=== PATIENT | female | born 1950 | race Caucasian/White ===

== ENCOUNTER → 2019-07-31 12:24 | Outpatient (BNVA) | payer MEDICARE, SELFPAY | PROVIDERS: Family Provider Physician Assistant Medical; PCP Physician Assistant Medical; Visit Provider Specialist | DX: M25.561 Pain in right knee (principal); M77.8 Other enthesopathies, not elsewhere classified | CPT/HCPCS: 73560; 73565; 81003; 87641 ==

== ENCOUNTER 2019-08-12 10:50 | Inpatient (IN) | payer MEDICARE, SELFPAY ==
[2019-08-01 14:25] VITALS: BMI 35.4
--- NOTE | 2019-08-01 14:30 | ECG_ITS ---
Measurements Intervals Brilliant Rate: 75 P: -9 NM: 133 QRS: 0 QRSD: 85 T: 0 QT: 386 QTc: 434 SINUS RHYTHM No previous ECG available for comparison Electronically Signed On 08-01-2019 15:56:10 CLINICAL ACCOUNT SPECIALIST by Vince Miller M.D. [email or web address]
--- NOTE | 2019-08-01 15:28 | ANES.PREANES ---
Pre-Anesthetic Assessment Pre-Anesthetic Assessment: Height/Weight: Height 1.6 m Weight 90.718 kg Preop Diagnosis: Knee pain Proposed Procedure: Operation Date: 08/12/19 11:45 Proposed Procedures p Total Knee Arthroplasty 23474 M17.11(Right) - Corrie Garcia MD Familial anesthetic complications: No trouble Social: Social History: No alcohol and No tobacco Exam: Pre-Anes Outpt Exam: alert, oriented x 3, clear to auscultation bilaterally and regular rate & rhythm Airway: Cervical ROM: WNL MP: 3 Additional comments: edentulous Pulmonary: Pulmonary: Cough (chronic (may be due to lisinopril)) and Sleep apnea (BiPaP (complicated) - quit breathing 104 times an hour; does not wear machine) CV/HEM: CV/HEM: HTN : : None reported Hepatic: Hepatic: None reported GI: GI: GERD and Hiatus hernia Comments: severe Metabolic: Metabolic: Morbid obesity and Thyroid Musc/skel: Musc/skel: None reported Neuropsych: Neuropsych: None reported Anesthetic Plan: ASA status: III Anesthesia: General and Regional (specify below) Other: adductor canal Risk of > 500 ml blood loss (7ml/kg in children): Yes, adequate IV access and fluids planned PFSH Anesthesia PFSH: Social History (Updated 07/31/19 @ 15:20 by Judy Whipple LPN) Smoking and tobacco status: never smoked Alcohol intake: never Data Anesthesia Cardiac Studies: No Data to Display
[2019-08-01 16:19] LABS: Basophils # 0.1 10^3/uL (0.0-0.1); Basophils % 1.1 %; Eosinophils # 0.3 10^3/uL (0.0-0.8); Eosinophils % 3.7 %; Hemoglobin 13.5 g/dL (11.5-15.3); Lymphocytes # 2.9 10^3/uL (0.8-4.8); Lymphocytes % 35.6 %; Mean Corpuscular HGB Conc 32.9 g/dL (30.0-36.0); Mean Corpuscular Hemoglobin 30.5 pg (28.0-34.0); Mean Corpuscular Volume 92.6 fL (81-99); Mean Platelet Volume 11.4 fL (7.4-10.4); Monocytes # 0.8 10^3/uL (0.2-0.9); Monocytes % 9.7 %; Neutrophils % 49.4 %; Nucleated Red Blood Cells % 0 %; Platelet Count 312 10^3/cmm (130-400); Red Blood Count 4.43 10^6/uL (4.1-5.3); Red Cell Distribution Width 13.2 % (12.1-15.1); White Blood Count 8.1 10^3/uL (4.0-10.0)
[2019-08-01 16:33] LABS: INR 0.97 (0.8-1.2)
[2019-08-01 16:34] LABS: Partial Thromboplastin Time 29.6 SECONDS (23.9-36.7)
[2019-08-12] VITALS (21 sets, daily range): BP systolic 100–151; BP diastolic 57–98; PULSE 69–99; RESP 14–20; TEMP 36.6–37.7; O2SAT 90–97
[2019-08-12] MEDS: sodium chloride 0.9% 1,000 ML 30 ML IV (05:49)
[2019-08-12] MEDS: CELEcoxib 200 mg Capsule 400 MG PO (05:55)
[2019-08-12 06:41] LABS: Blood Urea Nitrogen 14 mg/dL (8-23); Calcium 10.1 mg/dL (8.5-10.5); Carbon Dioxide 26 mmol/L (22-29); Chloride 102 mmol/L (98-107); Glomerular Filtration Rate 82.7 mL/min (90-130); Glucose 108 mg/dL (65-115); Osmolality Calculated 289 mOsm/kg (285-295); Sodium 141 mmol/L (136-145)
[2019-08-12] MEDS: midazolam 1 mg/mL INJ 5 ML 5 MG IVP (06:42)
[2019-08-12] MEDS: fentaNYL 50 mcg/mL INJ 2mL 100 MCG IVP (06:43)
--- NOTE | 2019-08-12 06:53 | ANES.PROC ---
Anesthesia Procedures Procedure/Date: 08/12/19 Right adductor canal block Procedure Narrative: R&B's of right adductor canal block for postop pain relief following right TKA disc'd. Verbal and written consent obtained. Versed 2+1mg, Fentanyl 50ug. US used to identify right adductor canal space, MADELIN. 30cc of mixture of Ropvicaine 0.5% + Lido 2% with epi in 3:1 ratio given in 5cc increments without problems/complications. Nerve Block ^: Nerve Block 1: Main Anesthesia: general anesthesia Time Out Performed: Yes Consent: requested by attending/covering physician, from patient, risks and benefits reviewed and patient agrees to proceed Nerve block location: adductor canal Anesthetic Used: lidocaine 2% and ropivicaine 0.5% Amount of anesthesia used (mL): 30 Patient Tolerated Procedure: well Complications: none
--- NOTE | 2019-08-12 06:59 | PM.HPUD ---
H&P update H&P Update: DATE OF SURGERY/PROCEDURE: 08/12/19 DATE H&P PERFORMED: 08/01/18 H&P UPDATE INFORMATION: No changes to prior documentation and H&P is in [facility] EMR on date indicated PREOP DIAGNOSIS: Severe degenerative osteoarthritis right knee PRIMARY INDICATION FOR PROCEDURE: Right knee DJD PLANNED PROCEDURE: Operation Date: 08/12/19 07:00 Proposed Procedures p Total Knee Arthroplasty 19327 M17.11(Right) - Corrie Garcia MD Full H&P Medications/Allergies: Current Medications: Current Medications Generic Name Dose Route Start Last Admin Trade Name Freq PRN Reason Stop Dose Admin Sodium Chloride 1,000 mls @ 30 ml s/hr 08/12/19 05:30 08/12/19 05:49 Sodium Chloride 0.9% IV 08/13/19 05:29 30 mls/hr .Q24H TALON Administration Perinent History: Social History: Social History Smoking and tobacco status: never smoked Alcohol intake: never
[2019-08-12] MEDS: vancomycin 1,000 MG SDV 1000 MG XX (07:54)
[2019-08-12] MEDS: fentaNYL 50 mcg/mL INJ 2mL IVP ×2 (09:45→09:50)
[2019-08-12] MEDS: morphine 4 mg/mL SDV 1 mL 2 MG IVP ×2 (10:00→10:10)
--- NOTE | 2019-08-12 10:00 | XR_ITS ---
WS: [id number] Right knee, 3 views, 08/12/2019 Clinical Data: Status post total knee arthroplasty Comparison: Right knee, 07/31/2019 Findings: A total knee arthroplasty is in good position. The components are in good position. There are air-flu id levels in the knee from the recent surgery. Anterior surgical anahi are seen. XR/XR knee RT 3V* [id number] Impression: Right knee arthroplasty.
--- NOTE | 2019-08-12 10:03 | P.OP_ITS ---
Operative Report Date of procedure: August 12, 2019 Pre-op Diagnosis: Severe degenerative osteoarthritis right knee Post-op diagnosis: same Procedure Done: Right total knee arthroplasty utilizing the following components: The [place] triathlon Tritanium posterior stabilized right femoral component size 3 with a triathlon Tritanium tibial component size 3 and a size 3 x 13 mm posterior stabilized tibial insert. Patella was triathlon Tritanium asymmetric patella size 29 x 9 mm. All were press fitted. Specimens removed/disposition: Bone, disposed of Pathology: none sent Surgeon: Corrie Garcia Restaurant District Manager: [facility] OR technicians Anesthesia: General (Intubated with preoperative adductor canal block placed in preop holding area) Estimated blood loss (mL): 10 Tourniquet time (min): 103 IV fluids (mL): 1,200 Urine output (mL): 200 Complications: None Findings: Severe degenerative osteoarthritis Condition: stable Disposition: PACU (Then observation for postoperative rehabilitation) Brief History: This 68-year-old woman presented with complaints of severe pain in the right knee. She had difficulties with her activities of daily living. She was unresponsive to other conservative measures. After discussion, the patient wished to proceed with operative intervention. Preoperatively, risks and complications were discussed with her. Consents were signed and questions were answered. Procedure: The patient was brought to the operating theater, and after undergoing adequate general intubated anesthesia with supplemental regional block, the right lower extremity was prepped with Dura-Prep and draped in usual fashion following placement of a tourniquet high on the leg. The leg was then draped free. Following prepping and draping, the leg was exsanguinated, and the tourniquet was elevated to 250 mmHg for a total tourniquet time of 103 minutes. Prior to elevation of the tourniquet, but following exposure of the site of surgery, a surgical pause was performed. At the time of the surgical pause, we confirmed the site and side of surgery. Additionally, we confirmed the appropriate and timely administration of preoperative antibiotics, Ancef 2 g and transexemic acid 1 g. The availability of equipment was confirmed, and the patient's identity was verbalized as well. Following the surgical pause, an incision was made centering over the patella continuing proximally and distally as necessary to allow access to the knee joint. Dissection continued through skin and soft tissues using a scalpel. Hemostasis was obtained using electrocautery. The skin incision was followed by a median parapatellar arthrotomy. The leg was extended and the patella was everted. Following this, the leg was returned to flexed position. The distal femur was exposed and a drill hole was made in this for placement of the distal femoral jig. The distal femoral jig was set at 5? of valgus. The distal femoral cutting block was then placed in appropriate position, and an monalisa wing was used to confirm an appropriate amount of distal femur would be resected. The distal femoral resection was accomplished with 8 mm of bone being resected distally. After the distal femoral resection had been accomplished, the femur was measured and it measured a size 3. Medial lateral dimension also measured a size 3. A size 3 femoral cutting block was placed in position, and we were then able to accomplish the anterior, posterior and chamfer cuts. This jig was then removed and the notch guide was placed in position. With the notch guide in appropriate position, the notch was excised including resection of the anterior and posterior cruciate ligaments. This notch was to allow for the posterior stabilized femoral component. At this point, the femur was prepared and attention was directed to the proximal tibia. The posterior knee retractor was placed along with medial and lateral retractors. Further resection of the menisci was accomplished as we had better visualization. A complete meniscectomy was performed both medially and laterally with care being taken to protect the popliteus. Retractors were then placed so that the proximal tibia was well visualized. A drill hole was then made in the tibia for placement of the intramedullary guide. This guide was placed so that approximately 2 mm of bone would be resected from the deficient medial tibial plateau. The intramedullary guide was utilized supplemented with an extramedullary guide to assure appropriate alignment for the proximal tibial resection. The proximal tibial jig was then evaluated, pinned in position, and the proximal tibial resection was accomplished without difficulty. The jig was removed and the proximal tibia was measured. It measured a size 3. We then performed a trial reduction with an 11 mm insert into the size 5 tray. The femoral component was placed in position for the trial reduction, and the knee was placed through range of motion. The knee was felt to be slightly loose laterally compared to medially. Therefore, the medial release was accomplished and we were able to increase to an 13 mm insert. There was excellent stability with excellent varus-valgus alignment with appropriate patellar tracking. This was felt to be the appropriate size insert. There was full extension and flexion without lift off and the rotation of the tibia was marked. Alignment was checked from the hip to the ankle, and this was noted to be appropriate as well. Attention was then directed to the patella. The patella was measured with a caliper. We resected sufficient patella to leave approximately 14 mm of patella remaining. Measurements of the patella then indicated that a size asymmetric 29 mm x 9 mm was the appropriate patellar size. We then placed the jig to drill for the 3 pegs of the press-fit patella, and these drill holes were made without incident. A trial patella was then placed, and the knee was placed through range of motion. The patella was noted to track nicely without evidence of subluxation. The femur was prepared for a press-fit femur by drilling 2 holes for the femoral pegs. All trial components were subsequently removed. The tibial tray was then pinned into position, and we broached the tibia for the stem of the tibial component. Subsequently, 4 drill holes were made for placement of the press-fit tibia. This was accomplished without difficulty. Care was taken to assure appropriate rotation of the tibia as well as appropriate position on the proximal tibia. The tibial tray was completely seated on the proximal tibia. Following broaching, the tibial guide was removed, and all surfaces were copiously irrigated. The surfaces were then dried and a bone plug was placed into the distal femur. Exparel was also injected at this point. The Tritanium tibia was impacted into position. The beaded femur was then impacted into position in a cementless fashion. The tibial insert was placed. The patella was pressed into position with a patellar clamp. The knee was irrigated with 20 mL of Betadine and 500 mL of normal saline, and this was allowed to remain in the knee for 3-4 minutes. The knee was then copiously irrigated and suctioned dry. Attention was then directed to closure. Closure was accomplished with 0 Vicryl in the fascial tissues, 2-0 Monocryl was used in the subcutaneous tissues, and the skin was closed with skin anahi followed by Exofin. A sterile dressing was then placed consisting of Telfa, 4 x 4's, ABDs, sterile soft roll, and an Avel wrap. The patient was returned the Recovery Room in a satisfactory condition. X-rays were obtained there. The patient will be discharged to the floor for postoperative rehabilitation and pain management. She'll be under observation status with plans to discharge home with home health.
[2019-08-12] MEDS: ipratropium 0.5 mg/2.5 mL Neb INHALATION (10:15)
[2019-08-12] MEDS: ondansetron 2 mg/ML SDV 2 mL 4 MG IVP ×2 (10:45→16:04)
[2019-08-12 12:02] LABS: Glucose Point of Care 136 mg/dL (70-110)
[2019-08-12] MEDS: sodium chloride 0.9% 1,000 ML 80 ML IV (12:55)
[2019-08-12] MEDS: oxyCODONE-APAP 5-325 mg Tablet 1 TAB PO ×2 (14:14→22:38)
[2019-08-12] MEDS: chlorhexidine gluconate 0.12% Btl 473 mL 30 ML MUCOUS MEM ×2 (18:50→22:37)
[2019-08-12] MEDS: acetaminophen 500 mg Tablet 1000 MG PO (18:50)
[2019-08-12] MEDS: sennosides-docusate Tablet 2 TAB PO (18:51)
[2019-08-12] MEDS: CELEcoxib 200 mg Capsule PO (18:51)
[2019-08-12] MEDS: iron polysaccharide complex 150 mg Capsule PO (18:51)
[2019-08-12] MEDS: isosorbide dinitrate 20 mg Tablet 30 MG PO (18:51)
[2019-08-12] MEDS: calcium carbonate 500 mg Chew Tablet 1000 MG PO (18:51)
[2019-08-13] VITALS (13 sets, daily range): BP systolic 103–129; BP diastolic 58–76; PULSE 72–93; RESP 16–20; TEMP 36.7–37.1; O2SAT 92–98
[2019-08-13] MEDS: acetaminophen 500 mg Tablet 1000 MG PO ×2 (02:10→07:27)
[2019-08-13] MEDS: sodium chloride 0.9% 1,000 ML 80 ML IV ×2 (02:13→12:12)
[2019-08-13] MEDS: TRAMadol 50 mg Tablet PO ×3 (03:19→16:15)
[2019-08-13 05:38] LABS: Basophils % 0.1 %; Hematocrit 34.7 % (37.0-47.0); Hemoglobin 10.9 g/dL (11.5-15.3); Lymphocytes # 1.5 10^3/uL (0.8-4.8); Mean Corpuscular HGB Conc 31.4 g/dL (30.0-36.0); Mean Corpuscular Hemoglobin 31.4 pg (28.0-34.0); Mean Platelet Volume 10.3 fL (7.4-10.4); Monocytes # 1.4 10^3/uL (0.2-0.9); Monocytes % 11.9 %; Neutrophils # 8.5 10^3/uL (1.8-7.7); Neutrophils % 74.6 %; Nucleated Red Blood Cells % 0 %; Platelet Count 212 10^3/cmm (130-400); Red Blood Count 3.47 10^6/uL (4.1-5.3); Red Cell Distribution Width 13.1 % (12.1-15.1); White Blood Count 11.4 10^3/uL (4.0-10.0)
[2019-08-13] MEDS: CELEcoxib 200 mg Capsule PO ×2 (05:59→17:23)
[2019-08-13] MEDS: isosorbide dinitrate 20 mg Tablet 30 MG PO ×2 (07:26→22:00)
[2019-08-13] MEDS: oxyCODONE-APAP 5-325 mg Tablet 1 TAB PO ×2 (07:27→21:33)
[2019-08-13] MEDS: calcium carbonate 500 mg Chew Tablet 1000 MG PO ×2 (07:27→17:24)
[2019-08-13] MEDS: multivitamin therapeutic Tablet 1 TAB PO (07:28)
[2019-08-13] MEDS: iron polysaccharide complex 150 mg Capsule PO ×2 (07:28→21:33)
[2019-08-13] MEDS: levothyroxine 50 mcg Tablet PO (07:28)
[2019-08-13] MEDS: aspirin 325 mg EC Tablet PO (07:28)
[2019-08-13] MEDS: cholecalciferol (vitamin D3) 1,000 unit Tablet 1000 UNIT PO (07:28)
[2019-08-13] MEDS: famotidine 20 mg Tablet PO (07:28)
[2019-08-13] MEDS: amlodipine 10 mg Tablet PO (07:29)
[2019-08-13] MEDS: citalopram 20 mg Tablet PO (07:29)
[2019-08-13] MEDS: sennosides-docusate Tablet 2 TAB PO ×2 (07:29→21:33)
[2019-08-13] MEDS: pantoprazole DR 40 mg Tablet PO (07:29)
[2019-08-13] MEDS: oxybutynin 5 mg Tablet PO (07:29)
[2019-08-13] MEDS: chlorhexidine gluconate 0.12% Btl 473 mL 30 ML MUCOUS MEM ×4 (07:30→21:38)
[2019-08-13] MEDS: fluticasone nasal spray 16gm Btl 1 SPRAY INTRANASAL (07:30)
--- NOTE | 2019-08-13 11:40 | PC.CHAP ---
Pastoral Care Encounter/Spiritual Assessment Type of Contact [] Declined rn icu visit [] Patient/Family/Request visit [] Outpatient visit [] Follow-up visit [] Physician referral [] Code/Alert [x] Routine visit [] Staff referral [] Actively dying [] Patient sleeping [] Family support [] [] Out of room [] Palliative care [] [] Receiving care in room [] Pre-surgical visit [] Trauma [] Long length of stay [] ICU visit [] Other: Relational/Emotional Strength [x] Patient feels connected with others/family/visitors/staff [x] Distress [x] Loneliness/isolation [] Abandonment Spirituality of Patient [x] Person of Judith [x] Attends Taoism of their Judith [x] Believes in Prayer [] Reads Bible or Restoration materials [] There are Spiritual issues to be addressed Imaging Technologist Interventions x[] Prayer [x] Active listening [x] Non-anxious presence [] Spiritual/emotional support [] Crisis/trauma care [] Spiritual counseling [] Bereavement support [] Provided bereavement packet [] Provided Bible/devotional materials [] Provided toy/stuffed animal, coloring book to patient or family member [] Provided Communion [] Anointing/Coleman [] Salvation [] Completed spiritual assessment [] Other: Impact on Illness or Injury [] Angry [] Fearful [] Anxious [] Often cries [] Exhaustion [] Unable to work [] Unable to attend baptism [] Unable to walk/stand [] Unable to read [] Unable to drive [] Unable to eat/drink [] Unable to sleep [] Unable to be with family [] Patient intubated [] Other: Summary patient in [facility] Time spent with patient 10 min
--- NOTE | 2019-08-13 13:53 | PM.PN ---
Subjective Subjective: Interval history: The patient is seen in her room. She is doing well. Her main problem today, is her oxygenation level. She required 4 L this morning. This is been decreased to 3-1/2 L. Both the patient and her daughter expressed some concern regarding this new oxygen requirement if she does not use O2 at home. She does use a CPAP. The patient admits to becoming short of breath when she stands for an extended period of time however. She has minimal to no complaints of pain in her knee, and she actively moves it easily. Medications: Reviewed: Yes Vitals/I&O/Wt Last Vital Signs Temp 98.3 F 08/13/19 11:14 Pulse 87 08/13/19 11:14 Resp 18 08/13/19 11:14 BP 111/69 08/13/19 11:14 Pulse Ox 94 08/13/19 11:14 08/12/19 08/13/19 08/13/19 22:59 06:59 14:59 Intake Total 560 / 2450 1050 / 3500 1358.667 / 1358.667 Output Total 550 / 960 500 / 1460 700 / 700 Balance 10 / 1490 550 / 2040 658.667 / 658.667 Physical Exam Narrative: EXAM NARRATIVE: The patient's dressing is removed. She has no evidence of infection, there is no drainage, and there is no hematoma. Her calf is soft and nontender without evidence of DVT. Spontaneously, she will range her knee from 10 degrees to 90 degrees with minimal discomfort. This is active range of motion. She appears neurologically intact. She does not appear overly short of breath upon evaluation today. Urinary Catheter Management^: Schaeffer: Cath Placed During This Visit: yes, but has since been removed by the nurse Urinary Catheter Date of Insertion: 08/12/19 Urinary Catheter Time of Insertion: 07:20 Date Urinary Catheter Removed: 08/13/19 Time Urinary Catheter Discontinued: 06:00 Data : 08/13/19 05:25 08/12/19 05:30 A&P Assessment and plan (1) Status post total right knee replacement not using cement: The patient underwent total knee arthroplasty yesterday. She was brought in observation following the surgical procedure for postoperative pain management and rehabilitation. Normally, the patient uses a CPAP at night, however, she does not use this at all times. Postoperatively, she has no signs of DVT or infection, but she has had some shortness of breath. Upon further questioning, she notes that she has shortness of breath when standing for long times at home as well. Both she and her daughter, but more her daughter, are concerned regarding this shortness of breath requiring oxygen this morning. We will obtain a consult from the hospitalist team to assure that there is no issue which needs to be addressed during this hospitalization. Status: Acute Code(s): Z96.651 - Presence of right artificial knee joint (2) Osteoarthritis of right knee: Status: Acute Qualifiers: Osteoarthritis type: primary Qualified Code(s): M17.11 - Unilateral primary osteoarthritis, right knee Code(s): M17.11 - Unilateral primary osteoarthritis, right knee Attestations Medical Necessity Statement*: The patient's hospitalization will be transitioned to an inpatient secondary to her new onset need for oxygen. She will also be evaluated by the hospitalist team. Therefore, she will need to continue in the hospital for safety and rehabilitation. Coding Level of Care Code Acute Cover Making Machine Operator for Yeny Rockwell Diagnoses Status post total right knee replacement not using cement Z96.651 Osteoarthritis of right knee M17.11 Osteoarthritis type: primary
--- NOTE | 2019-08-13 14:17 | XRR_ITS ---
PROCEDURE INFORMATION: Exam: XR Chest, 1 View Exam date and time: 08/13/2019 2:27 PM Age: 68 years old Clinical indication: Other: Increased oxygen requirement, SOB post-op; Patient HX: SOB post knee surgery yesterday TECHNIQUE: Imaging protocol: XR of the chest Views: 1 view. COMPARISON: No relevant prior studies available. FINDINGS: Lungs: There is atelectasis or scar in the bilateral lung bases. No acute pneumonia or edema. Pleural space: Unremarkable. No pleural effusion. No pneumothorax. Heart/Mediastinum: Unremarkable. No cardiomegaly. Bones/joints: Unremarkable. XR/XR chest 1V portable [id number] IMPRESSION: There are no acute concerning abnormalities.
--- NOTE | 2019-08-13 14:17 | P.CONIM_ITS ---
Providers/Reason For Consult Consulting Physican/Specialty*: Ayanna Hilton MD, Hospitalist Reason for Consult*: Medical management Attending Physician: Corrie Garcia MD Primary Care Provider: Marcus Rodriguez History of Present Illness History of Present Illness Ernestina Davidson is a 68 year old female with PMHx of COPD, Chronic diastolic CHF, Non-obstructive CAD, HTN, Hypothyroidism, GERD, Morbid obesity; presented for scheduled right total knee arthroplasty secondary to severe degenerative osteoarthritis that was done yesterday by Dr. Garcia. Patient did well from a surgical standpoint but was noted to have an increasing oxygen requirement particularly overnight, hence request for consult. She is not oxygen dependent at baseline, is currently on 3.5 L with saturation at 94%. During my assessment she does not look like she is in any distress but does describe episodes of jonathan rtness of breath with exertion. She does have obstructive sleep apnea and uses a CPAP machine though not as consistently as she should as she cannot find a mask that is comfortable for her. She states that she was diagnosed with COPD secondary to extensive secondhand smoke exposure. She has never been a smoker herself. Vital signs are otherwise stable. Preop labs are appropriate. I have ordered a chest x-ray for further evaluation as she is immediately postop secondary to her noted shortness of breath and increasing oxygen requirement. Schaeffer catheter was discontinued earlier this morning and she has been able to void independently. She has worked well with physical therapy this morning though she is somewhat fatigued and complains of pain behind her right knee following her session. We will work on weaning down her oxygen requirement if possible otherwise she will require home oxygen evaluation prior to discharge. Review of Systems Const: Denies: fever or chills Eyes: Denies: change in vision ENMT: Denies: painful swallowing Card: Denies: chest pain, swelling of feet/ankles or lightheadedness Resp: Reports: shortness of breath (with exertion) and non-productive cough (chronic, typically in AM); Denies: wheezing or coughing up blood GI: Denies: abdominal pain, nausea, vomiting, vomiting blood or blood in stool : Denies: difficulty urinating, painful urination or urinary frequency Musc: Reports: other (pain in R knee after ambulation); Denies: back pain Skin/Breast: Denies: rash Neuro: Denies: numbness in extremities or weakness in extremities Psych: Denies: anxiety Meds/Allergies Home Medications and Allergies Home Medications Medication Instructions Recorded Confirmed Type albuterol sulfate 90 mcg/actuation 2 inh INHALATION Q6H PRN 07/31/19 08/01/19 History breath activated powder inhaler amlodipine 10 mg tablet 10 mg PO QDAY 07/31/19 08/01/19 History celecoxib 200 mg capsule 200 mg PO QDAY 07/31/19 08/01/19 History citalopram 20 mg tablet 20 mg PO QDAY 07/31/19 08/01/19 History clobetasol 0.05 %-niacinamide 4 % 1 applic TOPICAL DAILY 07/31/19 08/01/19 History topical cream fluticasone propionate 50 1 spray INTRANASAL QDAY 07/31/19 08/01/19 History mcg/actuation nasal spray,suspension isosorbide dinitrate 30 mg tablet 30 mg PO BID 07/31/19 08/12/19 History levothyroxine 50 mcg capsule 50 mcg PO QDAY 07/31/19 08/01/19 History oxybutynin chloride 5 mg tablet 5 mg PO QDAY 07/31/19 08/12/19 History pantoprazole 40 mg tablet,delayed 40 mg PO QDAY 07/31/19 08/01/19 History release tizanidine 2 mg capsule 2 mg PO BID PRN 07/31/19 08/01/19 History famotidine [Pepcid] 20 mg PO DAILY 08/12/19 08/12/19 History Allergies Allergy/AdvReac Type Severity Reaction Status Date / Time No Known Allergies Allergy Verified 08/01/19 14:19 Current Medications Current Medications Generic Name Dose Route Start Last Admin Trade Name Freq PRN Reason Stop Dose Admin Acetaminophen 1,000 mg 08/12/19 11:04 08/13/19 07:27 Tylenol PO 1,000 mg Q8H [facility]ON Administration Amlodipine Besylate 10 mg 08/13/19 09:00 08/13/19 07:29 Norvasc PO 10 mg DAILY [facility] Administration Aspirin 325 mg 08/13/19 09:00 08/13/19 07:28 Aspirin Ec PO 325 mg DAILY [facility] Administration Calcium Carbonate 1,000 mg 08/12/19 18:00 08/13/19 07:27 Tums PO 1,000 mg BID [facility] Administration Celecoxib 200 mg 08/12/19 11:04 08/13/19 05:59 Celebrex PO 200 mg Q12H [facility] Administration Chlorhexidine Gluconate 30 ml 08/12/19 13:00 08/13/19 12:13 Perigard MUCOUS MEM 30 ml QID [facility] Administration Citalopram Hydrobromide 20 mg 08/13/19 09:00 08/13/19 07:29 Celexa PO 20 mg DAILY [facility] Administration Famotidine 20 mg 08/13/19 09:00 08/13/19 07:28 Pepcid Tab PO 20 mg DAILY [facility] Administration Fluticasone Propionate 1 spray 08/13/19 09:00 08/13/19 07:30 Flonase INTRANASAL 1 spray DAILY [facility] Administration Sodium Chloride 1,000 mls @ 80 mls/hr 08/12/19 12:00 08/13/19 12:12 Sodium Chloride 0.9% IV 80 mls/hr .[id number] [facility] Administration Isosorbide Dinitrate 30 mg 08/12/19 18:00 08/13/19 07:26 Isordil PO 30 mg BID [facility] Administration Levothyroxine Sodium 50 mcg 08/13/19 09:00 08/13/19 07:28 Synthroid PO 50 mcg DAILY [facility] Administration Multivitamins Therapeutic 1 tab 08/13/19 09:00 08/13/19 07:28 Multivitamin Tab PO 1 tab DAILY [facility] Administration Mupirocin 1 applic 08/12/19 18:00 08/13/19 07:29 Bactroban NASAL 08/17/19 17:59 Not Given BID [facility] Protocol Non-Formulary Medication 1 applic 08/13/19 09:00 08/13/19 07:30 Clobetasol-Niacinamide TOPICAL Not Given DAILY [facility] Ondansetron HCl 4 mg 08/12/19 08:11 08/12/19 10:45 Zofran IVP 4 mg Q15M PRN Administration Nausea/Vomiting PACU PHASE II Ondansetron HCl 4 mg 08/12/19 11:04 08/12/19 16:04 Zofran IVP 4 mg Q6H PRN Administration NAUSEA AND VOMITING Oxybutynin Chloride 5 mg 08/13/19 09:00 08/13/19 07:29 Ditropan PO 5 mg DAILY [facility] Administration Oxycodone/Acetaminophen 1 tab 08/12/19 11:04 08/13/19 07:27 Percocet 5-325 Mg PO 1 tab Q4H PRN Administration SEVERE PAIN Pantoprazole Sodium 40 mg 08/13/19 09:00 08/13/19 07:29 Protonix PO 40 mg DAILY [facility] Administration Polysaccharide Iron Complex 150 mg 08/12/19 18:00 08/13/19 07:28 Ferrex PO 150 mg BIDWM [facility] Administration Senna/Docusate Sodium 2 tab 08/12/19 18:00 08/13/19 07:29 Senna-S PO 2 tab BID [facility] Administration Tramadol HCl 50 mg 08/12/19 11:04 08/13/19 12:14 Ultram PO 50 mg Q4H PRN Administration MILD TO MODERATE PAIN Vitamin D 1,000 unit 08/13/19 09:00 08/13/19 07:28 Vitamin D3 PO 1,000 unit DAILY [facility] Administration PFSH Acute PFSH: Statuses (acute, chronic, etc) shown below reflect problem list status as previously entered and may not be historically accurate Medical History COPD (chronic obstructive pulmonary disease) GERD (gastroesophageal reflux disease) Hypertension Pulmonary embolism in 2005 Surgical History H/O tubal ligation History of tonsillectomy Family History Sister Lung disease has 2 sisters with COPD secondary to chronic smoking Other Cancer Social History (Updated 08/13/19 @ 14:41 by Ayanna Hilton MD) Smoking and tobacco status: never smoked Second hand smoke exposure: Yes (extensive) Alcohol intake: never Substance/Drug Use: never Vitals/I&O/Wt Last Vital Signs Temp 98.3 F 08/13/19 11:14 Pulse 87 08/13/19 11:14 Resp 18 08/13/19 11:14 BP 111/69 08/13/19 11:14 Pulse Ox 94 08/13/19 11:14 08/12/19 08/13/19 08/13/19 22:59 06:59 14:59 Intake Total 560 / 2450 1050 / 3500 1358.667 / 1358.667 Output Total 550 / 960 500 / 1460 700 / 700 Balance 1490 550 / 2040 658.667 / 658.667 Physical Exam Const: COMMON NORMALS: no apparent distress and oriented x3 GENERAL APPEARANCE: cooperative and comfortable NUTRITIONAL APPEARANCE: obese morbidly obese ORIENTATION/CONSCIOUSNESS: Yes awake HENMT: COMMON NORMALS: normocephalic, head/scalp atraumatic, hearing grossly normal bilaterally and moist oral mucous membranes HEAD & SCALP: normocephalic and atraumatic Eye: COMMON NORMALS: PERRL, EOMs intact bilaterally and conjunctivae normal CONJUNCTIVA: Yes conjunctivae normal PUPIL: Yes PERRL Neck/C-Spine: COMMON NORMALS: full ROM GENERAL: Yes normal visual inspection and Yes trachea midline Resp: COMMON NORMALS: normal respiratory effort, no retractions and no use of accessory muscles EFFORT & INSPECTION: Yes able to speak in complete sentences, Yes symmetric chest movement, No tachypneic and No retractions AUSCULTATION: no wheezes and diminished lung sounds bilateral Cardio: COMMON NORMALS: regular rate, regular rhythm, S1 normal heart sound, S2 normal heart sound and no murmurs RATE: regular rate RHYTHM: regular rhythm HEART SOUNDS: S1 normal and S2 normal GI: COMMON NORMALS: normal to inspection, nondistended, normoactive bowel sounds, soft to palpation and non-tender PALPATION: Yes soft Extremity: COMMON NORMALS: normal to inspection, full ROM and no clubbing, cyanosis or edema; negative for no pedal edema OTHER: -noted incision on R knee cap, healing appropriately; no noted hematoma Neuro: COMMON NORMALS: oriented x3, moves all extremities, no focal motor deficits and no sensory deficits noted Psych: COMMON NORMALS: mental status grossly normal, thought process normal, cooperative, affect normal and speech normal SPEECH: Yes normal speech THOUGHT PROCESS: normal thought process Skin: COMMON NORMALS: no rashes or lesions noted, no jaundice, no petechiae and no mottling GENERAL SKIN EXAM: no rashes or lesions noted Urinary Catheter Management^: Schaeffer: Cath Placed During This Visit: yes, but has since been removed by the nurse Urinary Catheter Date of Insertion: 08/12/19 Urinary Catheter Time of Insertion: 07:20 Date Urinary Catheter Removed: 08/13/19 Time Urinary Catheter Discontinued: 06:00 A&P Assessment and plan (1) Osteoarthritis of right knee: -has had total R knee arthroplasty secondary to severe degenerative OA; POD # 1; done by Dr. Garcia -pain control as needed -working well with therapy; fall precautions -Schaeffer catheter discontinued earlier this AM and has been voiding independently Status: Acute Qualifiers: Osteoarthritis type: primary Qualified Code(s): M17.11 - Unilateral primary osteoarthritis, right knee Code(s): M17.11 - Unilateral primary osteoarthritis, right knee (2) COPD (chronic obstructive pulmonary disease): -Patient has known COPD secondary to extensive secondhand smoke exposure, is not oxygen dependent at baseline -mild exacerbation -Her oxygen requirement increased overnight; currently on 3.5 L nasal cannula -Continue to monitor respiratory status -add Neb treatments, not currently wheezing so would hold off on systemic steroids -supplemental oxygen as needed; home oxygen evaluation prior to d/c if still requiring O2 -order CXR as she is post-op -already has incentive spirometry; encouraged continue use -bowel regimen Status: Acute Qualifiers: COPD type: COPD with acute exacerbation Qualified Code(s): J44.1 - Chronic obstructive pulmonary disease with (acute) exacerbation Code(s): J44.9 - Chronic obstructive pulmonary disease, unspecified (3) Hypertension: -continue oral antihypertensives, blood pressure is currently controlled Status: Acute Qualifiers: Hypertension type: essential hypertension Qualified Code(s): I10 - Essential (primary) hypertension Code(s): I10 - Essential (primary) hypertension (4) GERD (gastroesophageal reflux disease): -Continue PPI -Had EGD done in 2018 showing moderate hiatal hernia and mild esophageal ring Status: Acute Qualifiers: Esophagitis presence: without esophagitis Qualified Code(s): K21.9 - Gastro-esophageal reflux disease without esophagitis Code(s): K21.9 - Gastro-esophageal reflux disease without esophagitis Additional A&P Information -Chronic diastolic CHF; no acute exacerbation; Echo (01/2019): EF=65%, G1DD -Non-obstructive CAD; had cath done in 2017which was normal -Morbid obesity: BMI-35 kg/m2 -Hypothyroidism -prior hx of PE in 2006 -continue meds as ordered -GI ppx with PPI -DVT ppx with full dose ASA -Dispo: home with (Damian) -Code status: FULL code Thank you for the consult Coding Level of Care Code Acute Absence Management Consultant for Chg Fwd Diagnoses Osteoarthritis of right knee M17.11 Osteoarthritis type: primary COPD (chronic obstructive pulmonary disease) J44.1 COPD type: COPD with acute exacerbation Hypertension I10 Hypertension type: essential hypertension GERD (gastroesophageal reflux disease) K21.9 Esophagitis presence: without esophagitis
[2019-08-13] MEDS: ondansetron 2 mg/ML SDV 2 mL 4 MG IVP (16:15)
[2019-08-13] MEDS: ipratropium-albuterol 3 mL Neb INHALATION (17:24)
[2019-08-14] VITALS (9 sets, daily range): BP systolic 96–118; BP diastolic 47–69; PULSE 78–91; RESP 16–20; TEMP 36.7–37.2; O2SAT 87–94
[2019-08-14] MEDS: acetaminophen 500 mg Tablet 1000 MG PO ×2 (02:23→09:06)
[2019-08-14] MEDS: TRAMadol 50 mg Tablet PO ×2 (02:24→09:05)
[2019-08-14] MEDS: sodium chloride 0.9% 1,000 ML 80 ML IV (02:28)
[2019-08-14] MEDS: CELEcoxib 200 mg Capsule PO (05:15)
[2019-08-14] MEDS: levothyroxine 50 mcg Tablet PO (08:55)
[2019-08-14] MEDS: oxybutynin 5 mg Tablet PO (08:56)
[2019-08-14] MEDS: citalopram 20 mg Tablet PO (08:56)
[2019-08-14] MEDS: famotidine 20 mg Tablet PO (08:56)
[2019-08-14] MEDS: amlodipine 10 mg Tablet PO (08:56)
[2019-08-14] MEDS: isosorbide dinitrate 20 mg Tablet 30 MG PO (08:56)
[2019-08-14] MEDS: pantoprazole DR 40 mg Tablet PO (08:56)
[2019-08-14] MEDS: multivitamin therapeutic Tablet 1 TAB PO (08:57)
[2019-08-14] MEDS: iron polysaccharide complex 150 mg Capsule PO (08:57)
[2019-08-14] MEDS: calcium carbonate 500 mg Chew Tablet 1000 MG PO (08:57)
[2019-08-14] MEDS: sennosides-docusate Tablet 2 TAB PO (08:57)
[2019-08-14] MEDS: cholecalciferol (vitamin D3) 1,000 unit Tablet 1000 UNIT PO (08:58)
[2019-08-14] MEDS: aspirin 325 mg EC Tablet PO (08:58)
[2019-08-14] MEDS: chlorhexidine gluconate 0.12% Btl 473 mL 30 ML MUCOUS MEM ×2 (08:58→14:31)
[2019-08-14] MEDS: fluticasone nasal spray 16gm Btl 1 SPRAY INTRANASAL (09:06)
--- NOTE | 2019-08-14 09:29 | PM.PN ---
Subjective Subjective: Interval history: Oxygen requirement has decreased to 2 L NC, required 1 dose of Tramadol 50 mg and 1 dose of Percocet for pain control overnight. Had 940 mL urine output overnight. She is seen and examined, daughter at bedside, patient is in good spirits and reports feeling well today. Is much more awake and alert today as well. Has worked well with physical therapy, pain is well controlled currently. Will order home oxygen evaluation in anticipation of discharge. Medications: Reviewed: Yes Medication Review Details: Current Medications Generic Name Dose Route Start Last Admin Trade Name Miguel Angelq PRN Reason Stop Dose Admin Acetaminophen 1,000 mg 08/12/19 11:04 08/14/19 09:06 Tylenol PO 1,000 mg Q8H [facility] Administration Albuterol/Ipratrop ium 3 ml 08/13/19 15:00 08/13/19 17:24 Duoneb INHALATION 3 ml Q6H.RESPIRATORY P RN Administration SHORTNESS OF SAROJ TH Amlodipine Besylat e 10 mg 08/13/19 09:00 08/14/19 08:56 Norvasc PO 10 mg DAILY [facility] Administration Aspirin 325 mg 08/13/19 09:00 08/14/19 08:58 Aspirin Ec PO 325 mg DAILY [facility] Administration Calcium Carbonate 1,000 mg 08/12/19 18:00 08/14/19 08:57 Tums PO 1,000 mg BID [facility] Administration Celecoxib 200 mg 08/12/19 11:04 08/14/19 05:15 Celebrex PO 200 mg Q12H [facility] Administration Chlorhexidine Gluc carmen 30 ml 08/12/19 13:00 08/14/19 08:58 Perigard MUCOUS MEM 30 ml QID [facility] Administration Citalopram Hydrobr omide 20 mg 08/13/19 09:00 08/14/19 08:56 Celexa PO 20 mg DAILY [facility] Administration Famotidine 20 mg 08/13/19 09:00 08/14/19 08:56 Pepcid Tab PO 20 mg DAILY [facility] Administration Fluticasone Propio rubens 1 spray 08/13/19 09:00 08/14/19 09:06 Flonase INTRANASAL 1 spray DAILY [facility] Administration Sodium Chloride 1,000 mls @ 80 ml s/hr 08/12/19 12:00 08/14/19 04:33 Sodium Chloride 0.9% IV 80 mls/hr .[id number] [facility] Infusion Isosorbide Dinitra te 30 mg 08/12/19 18:00 08/14/19 08:56 Isordil PO 30 mg BID [facility] Administration Levothyroxine Sodi um 50 mcg 08/13/19 09:00 08/14/19 08:55 Synthroid PO 50 mcg DAILY [facility] Administration Multivitamins Ther apeutic 1 tab 08/13/19 09:00 08/14/19 08:57 Multivitamin Tab PO 1 tab DAILY [facility] Administration Mupirocin 1 applic 08/12/19 18:00 08/14/19 09:08 Bactroban NASAL 08/17/19 17:59 Not Given BID [facility] Protocol Non-Formulary Medi cation 1 applic 08/13/19 09:00 08/14/19 09:07 Clobetasol-Niaci namide TOPICAL Not Given DAILY [facility] Ondansetron HCl 4 mg 08/12/19 08:11 08/12/19 10:45 Zofran IVP 4 mg Q15M PRN Administration Nausea/Vomiting P ACU PHASE II Ondansetron HCl 4 mg 08/12/19 11:04 08/13/19 16:15 Zofran IVP 4 mg Q6H PRN Administration NAUSEA AND VOMITI NG Oxybutynin Chlorid e 5 mg 08/13/19 09:00 08/14/19 08:56 Ditropan PO 5 mg DAILY [facility] Administration Oxycodone/Acetamin ophen 1 tab 08/12/19 11:04 08/13/19 21:33 Percocet 5-325 M g PO 1 tab Q4H PRN Administration SEVERE PAIN Pantoprazole Sodiu m 40 mg 08/13/19 09:00 08/14/19 08:56 Protonix PO 40 mg DAILY [facility] Administration Polysaccharide Iro n Complex 150 mg 08/12/19 18:00 08/14/19 08:57 Ferrex PO 150 mg BIDWM [facility] Administration Senna/Docusate Sod ium 2 tab 08/12/19 18:00 08/14/19 08:57 Senna-S PO 2 tab BID [facility] Administration Tramadol HCl 50 mg 08/12/19 11:04 08/14/19 09:05 Ultram PO 50 mg Q4H PRN Administration MILD TO MODERATE PAIN Vitamin D 1,000 unit 08/13/19 09:00 08/14/19 08:58 Vitamin D3 PO 1,000 unit DAILY [facility] Administration Vitals/I&O/Wt Last Vital Signs Temp 98.1 F 08/14/19 09:17 Pulse 80 08/14/19 09:17 Resp 17 08/14/19 09:17 BP 118/69 08/14/19 09:17 Pulse Ox 92 08/14/19 09:17 08/13/19 08/14/19 08/14/19 22:59 06:59 14:59 Intake Total 610.667 / 0720.034 2922.000 / 3005.334 240 / 240 Output Total 1240 / 1940 300 / 2240 Balance -629.333 / 29.334 736.000 / 765.334 240 / 240 Physical Exam Const: COMMON NORMALS: no apparent distress and oriented x3 GENERAL APPEARANCE: cooperative and comfortable NUTRITIONAL APPEARANCE: obese morbidly obese ORIENTATION/CONSCIOUSNESS: Yes awake HENMT: COMMON NORMALS: normocephalic, head/scalp atraumatic, hearing grossly normal bilaterally and moist oral mucous membranes HEAD & SCALP: normocephalic and atraumatic Eye: COMMON NORMALS: PERRL, EOMs intact bilaterally and conjunctivae normal CONJUNCTIVA: Yes conjunctivae normal PUPIL: Yes PERRL Neck/C-Spine: COMMON NORMALS: full ROM GENERAL: Yes normal visual inspection and Yes trachea midline Resp: COMMON NORMALS: normal respiratory effort, no retractions and no use of accessory muscles EFFORT & INSPECTION: Yes able to speak in complete sentences, Yes symmetric chest movement, No tachypneic and No retractions AUSCULTATION: no wheezes and diminished lung sounds bilateral Cardio: COMMON NORMALS: regular rate, regular rhythm, S1 normal heart sound, S2 normal heart sound and no murmurs RATE: regular rate RHYTHM: regular rhythm HEART SOUNDS: S1 normal and S2 normal GI: COMMON NORMALS: normal to inspection, nondistended, normoactive bowel sounds, soft to palpation and non-tender PALPATION: Yes soft Extremity: COMMON NORMALS: normal to inspection, full ROM and no clubbing, cyanosis or edema; negative for no pedal edema OTHER: -noted incision over R knee cap, healing appropriately; no noted hematoma or increased swelling; ROM improving Neuro: COMMON NORMALS: oriented x3, moves all extremities, no focal motor deficits and no sensory deficits noted Psych: COMMON NORMALS: mental status grossly normal, thought process normal, cooperative, affect normal and speech normal SPEECH: Yes normal speech THOUGHT PROCESS: normal thought process Skin: COMMON NORMALS: no rashes or lesions noted, no jaundice, no petechiae and no mottling GENERAL SKIN EXAM: no rashes or lesions noted Urinary Catheter Management^: Schaeffer: Cath Placed During This Visit: yes, but has since been removed by the nurse Urinary Catheter Date of Insertion: 08/12/19 Urinary Catheter Time of Insertion: 07:20 Date Urinary Catheter Removed: 08/13/19 Time Urinary Catheter Discontinued: 06:00 Data : 08/13/19 05:25 08/12/19 05:30 A&P Assessment and plan (1) Osteoarthritis of right knee: -has had total R knee arthroplasty secondary to severe degenerative OA; POD # 2; done by Dr. Garcia -pain control as needed -working well with therapy; fall precautions -Schaeffer catheter discontinued and has been voiding independently Status: Acute Qualifiers: Osteoarthritis type: primary Qualified Code(s): M17.11 - Unilateral primary osteoarthritis, right knee Code(s): M17.11 - Unilateral primary osteoarthritis, right knee (2) COPD (chronic obstructive pulmonary disease): -Patient has known COPD secondary to extensive secondhand smoke exposure, is not oxygen dependent at baseline -mild exacerbation -Her oxygen requirement increased overnight; currently on 2 L nasal cannula -Continue to monitor respiratory status -Neb treatments, not currently wheezing so would hold off on systemic steroids -supplemental oxygen as needed; home oxygen evaluation prior to d/c as is still requiring O2 -CXR unremarkable -already has incentive spirometry; encouraged continued use -bowel regimen -home oxygen evaluation prior to d/c if still oxygen dependent Status: Acute Qualifiers: COPD type: COPD with acute exacerbation Qualified Code(s): J44.1 - Chronic obstructive pulmonary disease with (acute) exacerbation Code(s): J44.9 - Chronic obstructive pulmonary disease, unspecified (3) Hypertension: -continue oral antihypertensives, blood pressure is currently controlled Status: Acute Qualifiers: Hypertension type: essential hypertension Qualified Code(s): I10 - Essential (primary) hypertension Code(s): I10 - Essential (primary) hypertension (4) GERD (gastroesophageal reflux disease): -Continue PPI -Had EGD done in 2018 showing moderate hiatal hernia and mild esophageal ring Status: Acute Qualifiers: Esophagitis presence: without esophagitis Qualified Code(s): K21.9 - Gastro-esophageal reflux disease without esophagitis Code(s): K21.9 - Gastro-esophageal reflux disease without esophagitis Additional A&P Information -Chronic diastolic CHF; no acute exacerbation; Echo (01/2019): EF=65%, G1DD -Non-obstructive CAD; had cath done in 2017which was normal -Morbid obesity: BMI-35 kg/m2 -Hypothyroidism -prior hx of PE in 2006 -continue meds as ordered -GI ppx with PPI -DVT ppx with full dose ASA -Dispo: home with (Damian) -Code status: FULL code Attestations Medical Necessity Statement*: Potential discharge later today Time Spent in Patient Care: Greater than 35 minutes (>than 50% of time spent in counselling and/or direct pt care on unit). Coding Level of Care Code Acute Director Of Parks And Recreation for Chg Fwd Exam Problem Focused Diagnoses Osteoarthritis of right knee M17.11 Osteoarthritis type: primary COPD (chronic obstructive pulmonary disease) J44.1 COPD type: COPD with acute exacerbation Hypertension I10 Hypertension type: essential hypertension GERD (gastroesophageal reflux disease) K21.9 Esophagitis presence: without esophagitis
--- NOTE | 2019-08-14 14:47 | P.DS_ITS ---
Discharge Providers Date of Admission: 08/13/19 14:07 Date of Discharge: August 14, 2019 Attending Provider at Admission: Corrie Garcia MD Attending Provider at Discharge: Corrie Garcia MD Primary Care Provider: Marcus Rodriguez Diagnoses at Discharge Discharge Diagnosis (1) Osteoarthritis of right knee: Status: Resolved Qualifiers: Osteoarthritis type: primary Qualified Code(s): M17.11 - Unilateral primary osteoarthritis, right knee (2) COPD (chronic obstructive pulmonary disease): Status: Chronic Qualifiers: COPD type: COPD with acute exacerbation Qualified Code(s): J44.1 - Chronic obstructive pulmonary disease with (acute) exacerbation (3) Hypertension: Status: Chronic Qualifiers: Hypertension type: essential hypertension Qualified Code(s): I10 - Essential (primary) hypertension (4) GERD (gastroesophageal reflux disease): Status: Chronic Qualifiers: Esophagitis presence: without esophagitis Qualified Code(s): K21.9 - Gastro-esophageal reflux disease without esophagitis (5) Status post total right knee replacement not using cement: Status: Acute Reason for Visit Reason for Visit: Reason For Visit: ostoarthritis right knee Hospital Course Hospital Course: The patient was admitted on the day of surgery. She underwent the following procedure: Right total knee arthroplasty utilizing the following components: The [place] triathlon Tritanium posterior stabilized right femoral component size 3 with a triathlon Tritanium tibial component size 3 and a size 3 x 13 mm posterior stabilized tibial insert. Patella was triathlon Tritanium asymmetric patella size 29 x 9 mm. All were press fitted. The patient tolerated the procedure well. Postoperatively, she was placed on the floor in observation status. On the first postoperative day, from an orthopedic perspective, the patient was doing very well. She had full extension and nearly 90 degrees of flexion. She had minimal discomfort. Over the first postoperative night, however, she did have an increasing oxygenation requirement. This was diminished over the first postoperative day, but the patient had a consult placed to the medical service to evaluate as to why she had this increased oxygen need. In further discussions with her, the patient noted that she would get short of breath at home with extended standing. There is some concern that this has been a chronic problem for her. She will require discharge home with home O2. Physical Exam Narrative: EXAM NARRATIVE: The patient's dressing is intact, but it is a clear Tegaderm. She has no evidence of infection, there is no drainage, and there is no hematoma. Her calf is soft and nontender without evidence of DVT. Spontaneously, she will range her knee from 0 degrees to 90 degrees with minimal discomfort. This is active range of motion. She appears neurologically intact. She does not appear overly short of breath upon evaluation today. She has no issues or concerns at this time. Urinary Catheter Management^: Schaeffer: Cath Placed During This Visit: yes, but has since been removed by the nurse Urinary Catheter Date of Insertion: 08/12/19 Urinary Catheter Time of Insertion: 07:20 Date Urinary Catheter Removed: 08/13/19 Time Urinary Catheter Discontinued: 06:00 Discharge Data Data Completed and Pending: Completed Studies During Hospitalization Category Date Time Status XR chest 1V david ble [id number] Routine Exams 08/13/19 14:17 Completed XR knee RT 3V* 73 562 Stat Exams 08/12/19 10:00 Completed Pending at discharge Category Date Time Status Urinalysis Routin e Lab 08/01/19 14:16 Ordered Vitals: Last Vital Signs Temp 98.4 F 08/14/19 11:32 Pulse 78 08/14/19 11:32 Resp 18 08/14/19 11:32 BP 99/61 08/14/19 11:32 Pulse Ox 93 08/14/19 11:32 Discharge Plan Discharge Patient Disposition: Home Health Service Condition: Stable Prescriptions: New oxycodone-acetaminophen 5-325 mg Tablet 1 tab PO Q4H PRN (Reason: Severe Pain) Qty: 30 RF: 0 aspirin 325 mg Tablet,Delayed Release (Dr/Ec) 325 mg PO DAILY Qty: 30 RF: 0 celecoxib 200 mg Capsule 200 mg PO Q12H Qty: 60 RF: 0 Continued fluticasone propionate [Allergy Relief (fluticasone)] 50 mcg/actuation spray,suspension 1 spray INTRANASAL QDAY RF: 0 clobetasol-niacinamide 0.05-4 % cream 1 applic TOPICAL DAILY RF: 0 isosorbide dinitrate 30 mg tablet 30 mg PO BID RF: 0 amlodipine [Norvasc] 10 mg tablet 10 mg PO QDAY RF: 0 citalopram [Celexa] 20 mg tablet 20 mg PO QDAY RF: 0 pantoprazole [Protonix] 40 mg tablet,delayed release (DR/EC) 40 mg PO QDAY RF: 0 tizanidine 2 mg capsule 2 mg PO BID PRN (Reason: muscle relaxer) RF: 0 albuterol sulfate 90 mcg/actuation aerosol powdr breath activated 2 inh INHALATION Q6H PRN (Reason: Shortness Of Breath Or Wheezing) RF: 0 oxybutynin chloride 5 mg tablet 5 mg PO QDAY RF: 0 levothyroxine 50 mcg capsule 50 mcg PO QDAY RF: 0 Pepcid 20 mg Tablet 20 mg PO DAILY RF: 0 Discontinued celecoxib [Celebrex] 200 mg capsule 200 mg PO QDAY RF: 0 Discharge Orders: Discharge Order (Routine); Ordered 08/13/19 Ordered By: Crorie Garcia Other Ambulatory Orders: DME: Walker (Order) Location: None Selected Ordered By: Corrie Garcia Referrals: Marcus Rodriguez [Primary Care Provider] - 08/19/19 11:00 am Corrie Garcia MD [Physician] - 08/27/19 1:45 pm Discharge Diet: Advance as tolerated and Usual diet Discharge Activity: Increase activity as tolerated, Use walker/crutches as instructed and As per PT/OT instructions Patient Instructions: Total Knee Replacement (DC) Activity Restrictions/Additional Instructions: May weight-bear as tolerated right lower extremity. Range of motion, strengthening, and gait training per physical therapy. Elevate and ice to right lower extremity. 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
[2019-08-14] MEDS: oxyCODONE-APAP 5-325 mg Tablet 1 TAB PO (16:21)
== END 2019-08-14 17:45 | disposition home health service (06) | DRG 470 ==
LOC: MEDSURG 08-13 07:02
PROVIDERS: Anesthesiology; Admitting Provider Specialist; Family Provider Physician Assistant Medical; PCP Physician Assistant Medical; Visit Provider Specialist
PROC: 0SRC0JA Replacement of Right Knee Joint with Synthetic Substitute, Uncemented, Open Approach (ICD-10-PCS; CPT 27447; principal; 2019-08-12 07:00)
DX: M17.11 Unilateral primary osteoarthritis, right knee (principal); J44.1 Chronic obstructive pulmonary disease with (acute) exacerbation; I50.32 Chronic diastolic (congestive) heart failure; I11.0 Hypertensive heart disease with heart failure; I25.10 Atherosclerotic heart disease of native coronary artery without angina pectoris; E03.9 Hypothyroidism, unspecified; K21.9 Gastro-esophageal reflux disease without esophagitis; E66.01 Morbid (severe) obesity due to excess calories; Z68.35 Body mass index [BMI] 35.0-35.9, adult; G47.33 Obstructive sleep apnea (adult) (pediatric); Z77.22 Contact with and (suspected) exposure to environmental tobacco smoke (acute) (chronic); Z86.711 Personal history of pulmonary embolism; K44.9 Diaphragmatic hernia without obstruction or gangrene
CPT/HCPCS: 12345; 36415; 36416; 51702; 71045; 73562; 80048; 82962; 85025; 85610; 85730; 93005; 94640; 96374; 96375; 97110; 97116; 97161; 97166; 97530; 97535; C1776; C9290; G0378; J0131; J0690; J1100; J2001; J2250; J2270; J2370; J2405; J2704; J2795; J3010; J3370; J3490; J7030; J7611; J7644

== ENCOUNTER 2019-08-23 14:42 | Observation (INO) | payer MEDICARE, SELFPAY ==
[2019-08-23 14:43] VITALS: BP 116/68; PULSE 90; RESP 16; O2SAT 94; BMI 34.7
--- NOTE | 2019-08-23 14:43 | ED_ITS ---
Entered by Prasanna Schmitz, acting as scribe for HPI - SOB/Dyspnea General: Chief Complaint: Chest Pain Stated Complaint: SOB Time Seen by Provider: 08/23/19 14:48 History of Present Illness: HPI Narrative: 68 yo female presents with shortness of breath. pt was eating lunch, she became dizzy and short of breath. Pt doesn't have a history of Afib. Pt had a knee replacement about 2 weeks ago. Pt states that she feels fuzzy headed at this time. MD elicited complaint: shortness of breath Onset (ago): hour(s) Timing: intermittent Severity: mild Exacerbating factors: movement Relieving factors: nothing Associated symptoms: Reports dizziness and nausea; Deny chest pain or fever(s) Treatment prior to arrival: none Review of Systems Const: Denies: fever, chills, body aches or change in appetite Eyes: Denies: blurry vision or eye discomfort ENMT: Denies: throat pain or dental pain Card: Denies: chest pain Resp: Reports: shortness of breath GI: Reports: nausea : Denies: painful urination Musc: Denies: neck pain or back pain Skin/Breast: Denies: rash Neuro: Reports: dizziness Psych: Denies: depression Judah/Lymph: Denies: easy bruising All/Imm: Denies: hives PFSH ED PFSH: Medical History (Updated 08/23/19 @ 16:10 by Barbara Block MD) Arthritis of knee, right COPD (chronic obstructive pulmonary disease) GERD (gastroesophageal reflux disease) Hypertension Pulmonary embolism in 2005 Surgical History H/O tubal ligation History of tonsillectomy Social History (Updated 08/13/19 @ 14:41 by Ayanna Hilton MD) Smoking and tobacco status: never smoked Second hand smoke exposure: Yes (extensive) Alcohol intake: never Physical Exam Const: COMMON NORMALS: no apparent distress, oriented x3 and healthy appearing HENMT: COMMON NORMALS: normocephalic and head/scalp atraumatic HEAD & SCALP: normocephalic and atraumatic Eye: COMMON NORMALS: PERRL and EOMs intact bilaterally PUPIL: Yes PERRL Neck/C-Spine: COMMON NORMALS: full ROM and supple Chest: COMMONS NORMALS: inspection of chest normal and palpation of chest normal Resp: COMMON NORMALS: normal respiratory effort, no retractions, no use of accessory muscles and clear to auscultation bilaterally AUSCULTATION: clear to auscultation bilaterally GI: COMMON NORMALS: normal to inspection, nondistended, normoactive bowel sounds, soft to palpation, non-tender and no masses PALPATION: Yes soft Extremity: COMMON NORMALS: normal to inspection and full ROM Neuro: COMMON NORMALS: oriented x3, moves all extremities and no focal motor deficits Psych: COMMON NORMALS: mental status grossly normal, thought process normal and cooperative THOUGHT PROCESS: normal thought process Skin: COMMON NORMALS: no rashes or lesions noted and no wounds GENERAL SKIN EXAM: no rashes or lesions noted Course Vital Signs: Vital signs: Vital Signs Temperature 98.3 F 08/23/19 14:50 Pulse Rate 90 08/23/19 14:43 Respiratory Rate 16 08/23/19 14:43 Blood Pressure 116/68 08/23/19 14:43 Pulse Oximetry 94 08/23/19 14:43 MDM - SOB/Dyspnea MDM Narrative: Medical decision making narrative: Patient presents here with dizziness and was having tachycardia. Patient did have recent surgery and CT here shows pulmonary embolism likely causing her symptoms. Will start on Lovenox. I spoke to hospitalist and will admit for observation. Lab Data: Labs: Lab Results 08/23/19 08/23/19 08/23/19 Range/Units 15:10 15:10 15:10 WBC 9.7 (4.0-10.0) 10^3/ uL RBC 4.04 L (4.1-5.3) 10^6/u L Hgb 12.1 (11.5-15.3) g/dL Hct 37.5 (37.0-47.0) % MCV 92.8 (81-99) fL MCH 30.0 (28.0-34.0) pg MCHC 32.3 (30.0-36.0) g/dL RDW 12.9 (12.1-15.1) % Plt Count 465 H (130-400) 10^3/c mm MPV 9.4 (7.4-10.4) fL Neut % (Auto) 67.2 % Lymph % (Auto) 19.4 % Ford % (Auto) 9.6 % Eos % (Auto) 1.9 % Baso % (Auto) 1.0 % Neut # (Auto) 6.5 (1.8-7.7) 10^3/u L Lymph # (Auto) 1.9 (0.8-4.8) 10^3/u L Ford # (Auto) 0.9 (0.2-0.9) 10^3/u L Eos # (Auto) 0.2 (0.0-0.8) 10^3/u L Baso # (Auto) 0.1 (0.0-0.1) 10^3/u L Nucleated RBC % (a uto) 0 % Nucleated RBCs # 0.0 /100WBC Sodium 137 (136-145) mmol/L Potassium 4.2 (3.5-5.1) mmol/L Chloride 100 (98-107) mmol/L Carbon Dioxide 25 (22-29) mmol/L Anion Gap 16.2 (5-19) BUN 14 (8-23) mg/dL Creatinine 0.7 (0.5-0.9) mg/dL GFR Calculation 82.7 L (90-130) mL/min Glucose 114 (65-115) mg/dL Calcium 9.9 (8.5-10.5) mg/dL Total Bilirubin 0.4 (0.15-1.2) mg/dL AST 20 (0-32) U/L ALT 15 (0-33) U/L Alkaline Phosphata se 118 H (35-105) IU/L Troponin T Baselin e 9 (0-10) ng/mL NT-Pro-B Natriuret Pep 154 H (0-125) pg/mL Total Protein 7.3 (6.6-8.7) g/dL Albumin 4.0 (3.5-5.2) g/dL Globulin 3.3 (1.3-4.6) g/dL Imaging Data^: CT Chest: Radiologist's impression: Ordering Provider/Ordering MD: Barbara Block MD Date of Service: 08/23/19 Procedure(s): CT angio chest PE protcl [id number] Accession Number(s): [id number] Report Number: [id number]/CT angio chest PE protcl [id number] CRITICAL RESULT: The study was personally discussed on the telephone with barbara Saba on 08/23/2019 3:46 PM CARBURETOR EXPERT. The results were understood and acknowledged. Radiation Dose CTDIVOL = (mGy): DLP = 489.7 (mGy-cm) Addendum Dictated By: Jyoti Castro MD Addendum Signed By: Jyoti Castro MD Signed Date/Time: 08/23/19 1547 Addendum Cosigned By: PROCEDURE INFORMATION: Exam: CT Angiography Chest With Contrast Exam date and time: 08/23/2019 2:55 PM Age: 68 years old Clinical indication: Shortness of breath; Prior surgery; Surgery date: 3-7 days post-operative; Surgery type: Knee; Additional info: Dyspnea TECHNIQUE: Imaging protocol: Computed tomographic angiography of the chest with intravenous contrast. 3D rendering: MIP and/or 3D reconstructed images were created by the technologist. Total DLP: 489.7 mGy-cm Radiation optimization: All CT scans at this facility use at least one of these dose optimization techniques: automated exposure control; mA and/or kV adjustment per patient size (includes targeted exams where dose is matched to clinical indication); or iterative reconstruction. Contrast material: OMNI 350; Contrast volume: 95 ml; Contrast route: LT UPPER ARM; COMPARISON: CR XR chest 1V portable [id number] 08/13/2019 2:17 PM FINDINGS: Pulmonary arteries: There are multiple small acute pulmonary emboli in 1st through 4th order branches of the right pulmonary artery. Overall low clot burden. Aorta: Unremarkable. No aortic aneurysm. No aortic dissection. Lungs: Unremarkable. No consolidation. No masses. Pleural space: Unremarkable. No pneumothorax. No pleural effusion. Heart: Multivessel atherosclerotic disease which involves the coronary arteries. Mediastinum: There is fluid in the distal esophagus consistent with reflux. Small hiatal hernia. Lymph nodes: Unremarkable. No enlarged lymph nodes. Bones/joints: There are diffuse enthesopathic changes consistent with benign diffuse idiopathic skeletal hyperostosis (DISH). There are degenerative changes in the visualized spine. Soft tissues: Unremarkable. CT/CT angio chest PE protcl [id number] IMPRESSION: 1. There are multiple small acute pulmonary emboli in 1st through 4th order branches of the right pulmonary artery. 2. Multivessel atherosclerotic disease which involves the coronary arteries. EKG Data^: EKG 1: Attestation: I personally reviewed and interpreted this EKG as follows: EKG Interpretation Date: 08/23/19 EKG interpretation time: 14:53 Interpretation: nsr hr [address] or t wave abnormalities qrs 78 qtc 403 Discharge Plan Discharge Patient Disposition: Admitted As Inpatient Admit Provider: Ayanna Hilton Clinical Impression: Pulmonary embolism Qualifiers: Pulmonary embolism type: multiple subsegmental (without acute cor pulmonale) Qualified Code(s): I26.94 - Multiple subsegmental pulmonary emboli without acute cor pulmonale Condition: Stable Referrals: Marcus Rodriguez [Primary Care Provider] - Coding Level of Care Code ED Smoke Tester for Chg Fwd Exam Comprehensive The documentation recorded by the Nadir joaquin Kialy, accurately reflects the service I personally performed and the decisions made by Mckayla cornejo Korby, MD Aug 23, 2019 14:42
--- NOTE | 2019-08-23 14:48 | CTR_ITS ---
PROCEDURE INFORMATION: Exam: CT Angiography Chest With Contrast Exam date and time: 08/23/2019 2:55 PM Age: 68 years old Clinical indication: Shortness of breath; Prior surgery; Surgery date: 3-7 days post-operative; Surgery type: Knee; Additional info: Dyspnea TECHNIQUE: Imaging protocol: Computed tomographic angiography of the chest with intravenous contrast. 3D rendering: MIP and/or 3D reconstructed images were created by the technologist. Total DLP: 489.7 mGy-cm Radiation optimization: All CT scans at this facility use at least one of these dose optimization techniques: automated exposure control; mA and/or kV adjustment per patient size (includes targeted exams where dose is matched to clinical indication); or iterative reconstruction. Contrast material: OMNI 350; Contrast volume: 95 ml; Contrast route: LT UPPER ARM; COMPARISON: CR XR chest 1V portable [id number] 08/13/2019 2:17 PM FINDINGS: Pulmonary arteries: There are multiple small acute pulmonary emboli in 1st through 4th order branches of the right pulmonary artery. Overall low clot burden. Aorta: Unremarkable. No aortic aneurysm. No aortic dissection. Lungs: Unremarkable. No consolidation. No masses. Pleural space: Unremarkable. No pneumothorax. No pleural effusion. Heart: Multivessel atherosclerotic disease which involves the coronary arteries. Mediastinum: There is fluid in the distal esophagus consistent with reflux. Small hiatal hernia. Lymph nodes: Unremarkable. No enlarged lymph nodes. Bones/joints: There are diffuse enthesopathic changes consistent with benign diffuse idiopathic skeletal hyperostosis (DISH). There are degenerative changes in the visualized spine. Soft tissues: Unremarkable. CT/CT angio chest PE protcl [id number] IMPRESSION: 1. There are multiple small acute pulmonary emboli in 1st through 4th order branches of the right pulmonary artery. 2. Multivessel atherosclerotic disease which involves the coronary arteries. Radiation Dose CTDIVOL = (mGy): DLP = 489.7 (mGy-cm)
--- NOTE | 2019-08-23 14:49 | ECG_ITS ---
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 [email or web address]
[2019-08-23 14:50] VITALS: TEMP 36.8
[2019-08-23] MEDS: sodium chloride 0.9% 1,000 ML 999 ML IV (15:09)
[2019-08-23 15:16] LABS: Basophils # 0.1 10^3/uL (0.0-0.1); Eosinophils # 0.2 10^3/uL (0.0-0.8); Eosinophils % 1.9 %; Hematocrit 37.5 % (37.0-47.0); Hemoglobin 12.1 g/dL (11.5-15.3); Lymphocytes # 1.9 10^3/uL (0.8-4.8); Lymphocytes % 19.4 %; Mean Corpuscular HGB Conc 32.3 g/dL (30.0-36.0); Mean Corpuscular Volume 92.8 fL (81-99); Mean Platelet Volume 9.4 fL (7.4-10.4); Monocytes # 0.9 10^3/uL (0.2-0.9); Monocytes % 9.6 %; Neutrophils # 6.5 10^3/uL (1.8-7.7); Neutrophils % 67.2 %; Nucleated Red Blood Cells % 0 %; Platelet Count 465 10^3/cmm (130-400); Red Blood Count 4.04 10^6/uL (4.1-5.3); Red Cell Distribution Width 12.9 % (12.1-15.1); White Blood Count 9.7 10^3/uL (4.0-10.0)
[2019-08-23] MEDS: iohexol 350 mg/mL 100 mL Btl IV (15:24)
[2019-08-23 15:34] LABS: Troponin(5th) Baseline 9 ng/mL (0-10)
[2019-08-23 15:42] LABS: Alanine Aminotransferase 15 U/L (0-33); Alkaline Phosphatase 118 IU/L (35-105); Anion Gap 16.2 (5-19); Aspartate Amino Transferase 20 U/L (0-32); Blood Urea Nitrogen 14 mg/dL (8-23); Calcium 9.9 mg/dL (8.5-10.5); Carbon Dioxide 25 mmol/L (22-29); Chloride 100 mmol/L (98-107); Globulin 3.3 g/dL (1.3-4.6); Glomerular Filtration Rate 82.7 mL/min (90-130); Glucose 114 mg/dL (65-115); NT Pro B Type Natriuretic Pept 154 pg/mL (0-125); Potassium 4.2 mmol/L (3.5-5.1); Sodium 137 mmol/L (136-145); Total Bilirubin 0.4 mg/dL (0.15-1.2); Total Protein 7.3 g/dL (6.6-8.7)
[2019-08-23] MEDS: enoxaparin 100 mg/mL Syringe 90 MG SUBCUT (16:18)
[2019-08-23 16:47] VITALS: BP 123/79; PULSE 79; RESP 16; O2SAT 94
[2019-08-23 17:45] LABS: Troponin 5 2HR 8.76 ng/mL (0-10)
[2019-08-23 17:47] LABS: Troponin 5 2HR Delta -0.24 ABS# (0-10)
--- NOTE | 2019-08-23 18:12 | P.HP_ITS ---
Providers/Chief Complaint Admitting Physician: Ayanna Hilton MD Primary Care Provider: Marcus Rodriguez Chief Complaint: PULMONARY EMBOLISM History of Present Illness Ernestina Davidson is a 68 year old female with PMHx of COPD, Chronic diastolic CHF, Non-obstructive CAD, HTN, Hypothyroidism, GERD, Morbid obesity; presents from home by ambulance for evaluation of chest tightness, shortness of breath started earlier today. Patient is known to me from recent admission during which time she had a right total knee arthroplasty done by Dr. Garcia on 08/12/19 with noted increased oxygen requirement following her surgery. Surgery was otherwise uncomplicated and we were able to wean her off oxygen, she is not oxygen dependent at baseline; and she has done well in terms of recovery, has b een ambulating with a walker and cane at home with increasing distance. Earlier today while getting ready to take a shower she noticed some dizziness, daughter checked her heart rate and oxygen saturation. Heart rate was elevated in the 120-130 range, oxygen saturation was appropriate. Daughter got concerned when patient continued to have the same symptoms with addition of palpitations and chest tightness and rechecked her vitals with similar findings. At this point she called for an ambulance to bring the patient to the hospital. Patient does have a prior history of provoked pulmonary emboli following a right knee surgery in 2005 during which time she was treated with a 3-month course of Coumadin. She tolerated the treatment without difficulty or any adverse effects per her recollection. It seems that her clot burden was much higher during her prior PE. Has otherwise felt well and been recovering without incidence. Work-up in the ER today indicates normal CBC with a slight elevated platelet count of 465, normal chemistry including renal function, negative troponin, BNP of 54. She had a CT done which revealed multiple small acute PE in the right pulmonary artery distribution, overall low clot burden. She received a therapeutic dose of Lovenox in the ER. She is resting comfortably during my assessment upon her arrival to the floor, family is at bedside including her daughter. She is hemodynamically stable, saturating at about 94% on room air. I discussed initiation of NOAC, specifically Eliquis, including risks of bleeding as well as benefits of treatment of PE. She does mention some tightness in her right ankle and calf with some increased edema today so we will order a venous duplex to rule out DVT. She is agreeable to initiation of Eliquis. Patient is being admitted for hemodynamic status monitoring as well as initiation of anticoagulation. Review of Systems Const: Reports: change in appetite (decreased appetite) and fatigue; Denies: fever or chills Eyes: Denies: change in vision ENMT: Reports: dry mouth Card: Denies: chest pain, swelling of feet/ankles or lightheadedness Resp: Reports: productive cough (green sputum); Denies: shortness of breath GI: Denies: abdominal pain, nausea, vomiting, vomiting blood or blood in stool : Reports: urinary frequency; Denies: difficulty urinating or painful urination Musc: Denies: back pain Skin/Breast: Denies: rash Neuro: Reports: weakness in extremities; Denies: numbness in extremities Psych: Denies: anxiety Medications/Allergies Home Medications Medication Instructions Recorded Confirmed Last Taken Type celecoxib 200 mg PO BID 08/23/19 08/23/19 08/23/19 History docusate sodium 200 mg PO DAILY 08/23/19 08/23/19 08/23/19 History trazodone 50 mg PO BEDTIME PRN 08/23/19 08/23/19 Unknown History Allergies Allergy/AdvReac Type Severity Reaction Status Date / Time No Known Allergies Allergy Verified 08/01/19 14:19 PFSH Acute PFSH: Medical History (Updated 08/23/19 @ 18:19 by Ayanna Hilton MD) Arthritis of knee, right Arthritis of left knee COPD (chronic obstructive pulmonary disease) GERD (gastroesophageal reflux disease) Hypertension Pulmonary embolism in 2005; provoked following R knee surgery Treated with Coumadin x 3 months Surgical History (Updated 08/23/19 @ 18:27 by Ayanna Hilton MD) H/O tubal ligation History of tonsillectomy S/P total knee arthroplasty s/p R total knee arthroplasty done on 08/12/[address] Garcia Social History Smoking and tobacco status: never smoked Second hand smoke exposure: Yes (extensive) Alcohol intake: never Vitals/I&O/Wt Last Vital Signs Temp 98.3 F 08/23/19 14:50 Pulse 79 08/23/19 16:47 Resp 16 08/23/19 16:47 BP 123/79 08/23/19 16:47 Pulse Ox 94 08/23/19 16:47 Weight last 48 hrs Weight 88.904 kg Physical Exam Const: COMMON NORMALS: no apparent distress and oriented x3 GENERAL APPEARANCE: cooperative and comfortable NUTRITIONAL APPEARANCE: obese m orbidly obese ORIENTATION/CONSCIOUSNESS: Yes awake HENMT: COMMON NORMALS: normocephalic, head/scalp atraumatic, hearing grossly normal bilaterally and moist oral mucous membranes HEAD & SCALP: normocephalic and atraumatic Eye: COMMON NORMALS: PERRL, EOMs intact bilaterally and conjunctivae normal CONJUNCTIVA: Yes conjunctivae normal PUPIL: Yes PERRL Neck/C-Spine: COMMON NORMALS: full ROM GENERAL: Yes normal visual inspection and Yes trachea midline Resp: COMMON NORMALS: normal respiratory effort, no retractions, no use of a ccessory muscles and clear to auscultation bilaterally EFFORT & INSPECTION: Yes able to speak in complete sentences, Yes symmetric chest movement and No tachypneic AUSCULTATION: clear to auscultation bilaterally Cardio: COMMON NORMALS: regular rate, regular rhythm, S1 normal heart sound, S2 normal heart sound and no murmurs RATE: regular rate RHYTHM: regular rhythm HEART SOUNDS: S1 normal and S2 normal GI: COMMON NORMALS: normal to inspection, nondistended, normoactive bowel sounds, soft to palpation and non-tender INSPECTION: Yes central obesity PALPATION: Yes soft Extremity: COMMON NORMALS: normal to inspection, full ROM and no clubbing, cyanosis or edema; negative for no pedal edema RIGHT LOWER EXTREMITY: Yes knee joint (incision is well approximated, anahi in place, no edema, erythema) OTHER: -some noted R calf tenderness Neuro: COMMON NORMALS: oriented x3, moves all extremities, no focal motor deficits and no sensory deficits noted SENSORIUM/ORIENTATION: Yes alert Psych: COMMON NORMALS: mental status grossly normal, thought process normal, cooperative, affect normal and speech normal SPEECH: Yes normal speech THOUGHT PROCESS: normal thought process Skin: COMMON NORMALS: no rashes or lesions noted, no jaundice, no petechiae and no mottling GENERAL SKIN EXAM: no rashes or lesions noted Data : 08/23/19 15:10 08/23/19 15:10 A&P Assessment and plan (1) Pulmonary embolism: -noted multiple small PE in branches of R pulmonary artery on CTA; overall low clot burden -Provoked given recent right total knee arthroplasty done for severe degenerative osteoarthritis that failed conservative management -Patient has a remote history of PE, provoked following prior right total knee surgery. Treated with a 3-month course of Coumadin which she tolerated without any adverse effects. -Received a dose of therapeutic Lovenox in the ED. Given hemodynamic stability, low clot burden, will start on Eliquis 10 mg twice daily x7 days then 5 mg twice daily thereafter -Noted right calf tenderness on examination with some mild increased edema so will order venous duplex to rule out DVT -Monitor hemodynamic status, respiratory status -Telemetry monitoring Status: Acute Qualifiers: Pulmonary embolism type: multiple subsegmental (without acute cor pulmonale) Qualified Code(s): I26.94 - Multiple subsegmental pulmonary emboli without acute cor pulmonale Code(s): I26.99 - Other pulmonary embolism without acute cor pulmonale (2) COPD (chronic obstructive pulmonary disease): -Patient has known COPD secondary to extensive secondhand smoke exposure, is not oxygen dependent at baseline -no evidence of acute exacerbation -Monitor respiratory status -supplemental oxygen as needed Status: Chronic Qualifiers: COPD type: COPD with acute exacerbation Qualified Code(s): J44.1 - Chronic obstructive pulmonary disease with (acute) exacerbation Code(s): J44.9 - Chronic obstructive pulmonary disease, unspecified (3) Hypertension: -resume oral antihypertensives, blood pressure is currently controlled Status: Chronic Qualifiers: Hypertension type: essential hypertension Qualified Code(s): I10 - Essential (primary) hypertension Code(s): I10 - Essential (primary) hypertension (4) S/P total knee arthroplasty: -had total R knee arthroplasty secondary to severe degenerative OA; done by Dr. Garcia on 08/12/2019 -pain control as needed -working well with therapy; fall precautions; ambulatory with walker -knee incision is well approximated, anahi in place, no edema/erythe ma/hematoma Status: Acute Qualifiers: Laterality: right Qualified Code(s): Z96.651 - Presence of right artificial knee joint Code(s): Z96.659 - Presence of unspecified artificial knee joint (5) GERD (gastroesophageal reflux disease): -resume PPI -Had EGD done in 2018 showing moderate hiatal hernia and mild esophageal ring Status: Chronic Qualifiers: Esophagitis presence: without esophagitis Qualified Code(s): K21.9 - Gastro-esophageal reflux disease without esophagitis Code(s): K21.9 - Gastro-esophageal reflux disease without esophagitis Additional A&P Information -Chronic diastolic CHF; no acute exacerbation; Echo (01/2019): EF=65%, G1DD -Non-obstructive CAD; had cath done in 2017 which was normal -Morbid obesity: BMI-35 kg/m2 -Hypothyroidism -prior hx of PE in 2006; treated with Coumadin -low salt diet as tolerated -GI ppx with PPI -DVT ppx not needed as on therapeutic anticoagulation -Dispo: home with (Damian) -Code status: FULL code Attestations Medical Necessity Statement*: Ernestina Davidson's hospital stay will be less than 2 midnights for management of provoked PE with low clot burden, needs initi ation of anticoagulation, hemodynamic status monitoring. Time Spent in Patient Care: Greater than 35 minutes (>than 50% of time spent in counselling and/or direct pt care on unit) . 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
[2019-08-23] MEDS: CELEcoxib 200 mg Capsule PO (18:31)
[2019-08-23 20:00] VITALS: BP 127/77; PULSE 76; RESP 18; TEMP 36.9; O2SAT 96
[2019-08-23] MEDS: acetaminophen 325 mg Tablet 650 MG PO (20:28)
[2019-08-23] MEDS: tizanidine 4 mg Tablet 2 MG PO (20:30)
--- NOTE | 2019-08-23 20:49 | ECG_ITS ---
Measurements Intervals [place] Rate: 76 P: 9 SD: 170 QRS: 6 QRSD: 88 T: 9 QT: 397 QTc: 447 SINUS RHYTHM Compared to ECG 08/01/2019 15:19:51 No significant changes Electronically Signed On 08-23-2019 19:31:24 [employer] by Meaghan Roy M.D. [id number]
[2019-08-23 21:37] LABS: Troponin 5 6HR 8.91 ng/mL (0-10)
[2019-08-23 21:40] LABS: Troponin 5 6HR Delta -0.09 ng/L (0-12)
[2019-08-24] VITALS: BP 124/72; PULSE 82; RESP 18; TEMP 36.8; O2SAT 97
[2019-08-24 04:00] VITALS: BP 123/76; PULSE 77; RESP 18; TEMP 36.8; O2SAT 96
[2019-08-24] MEDS: CELEcoxib 200 mg Capsule PO (06:04)
[2019-08-24 07:42] VITALS: BP 117/76; PULSE 68; RESP 18; TEMP 36.6; O2SAT 98
--- NOTE | 2019-08-24 08:03 | PM.DCS ---
Discharge Providers Date of Admission: 08/23/19 16:14 Date of Discharge: August 24, 2019 Attending Provider at Admission: Ayanna Hilton MD Attending Provider at Discharge: Ayanna Hilton MD Primary Care Provider: Marcus Rodriguez Diagnoses at Discharge Discharge Diagnosis (1) Pulmonary embolism: Status: Acute Problem details: -noted multiple small PE in branches of R pulmonary artery on CTA; overall low clot burden -Provoked given recent right total knee arthroplasty done for severe degenerative osteoarthritis that failed conservative management -Patient has a remote history of PE, provoked following prior right total knee surgery. Treated with a 3-month course of Coumadin which she tolerated without any adverse effects. -Received a dose of therapeutic Lovenox in the ED. Given hemodynamic stability, low clot burden, will start on Eliquis 10 mg twice daily x7 days then 5 mg twice daily thereafter -Noted right calf tenderness on examination with some mild increased edema so will order venous duplex to rule out DVT -hemodynamic status, respiratory status stable, has not required supplemental oxygen -Telemetry monitoring Qualifiers: Pulmonary embolism type: multiple subsegmental (without acute cor pulmonale) Qualified Code(s): I26.94 - Multiple subsegmental pulmonary emboli without acute cor pulmonale (2) COPD (chronic obstructive pulmonary disease): Status: Chronic Problem details: -Patient has known COPD secondary to extensive secondhand smoke exposure, was not oxygen dependent at baseline until most recent admission for R knee arthroplasty, had home oxygen evaluation done prior to d/c and qualified for 2 L NC which she is no longer requiring at home -no evidence of acute exacerbation -Monitor respiratory status; stable -supplemental oxygen as needed; none needed Qualifiers: COPD type: COPD with acute exacerbation Qualified Code(s): J44.1 - Chronic obstructive pulmonary disease with (acute) exacerbation (3) Hypertension: Status: Chronic Problem details: -continue oral antihypertensives, blood pressure is currently controlled Qualifiers: Hypertension type: essential hypertension Qualified Code(s): I10 - Essential (primary) hypertension (4) S/P total knee arthroplasty: Status: Acute Problem details: -had total R knee arthroplasty secondary to severe degenerative OA; done by Dr. Garcia on 08/12/2019 -pain control as needed -working well with therapy; fall precautions; ambulatory with walker -knee incision is well approximated, anahi in place, no edema/erythema/hematoma Qualifiers: Laterality: right Qualified Code(s): Z96.651 - Presence of right artificial knee joint (5) GERD (gastroesophageal reflux disease): Status: Chronic Problem details: -continue PPI -Had EGD done in 2018 showing moderate hiatal hernia and mild esophageal ring Qualifiers: Esophagitis presence: without esophagitis Qualified Code(s): K21.9 - Gastro-esophageal reflux disease without esophagitis Other Information Additional DC diagnoses/information: -Chronic diastolic CHF; no acute exacerbation; Echo (01/2019): EF=65%, G1DD -Non-obstructive CAD; had cath done in 2017 which was normal -Morbid obesity: BMI-35 kg/m2 -Hypothyroidism -prior hx of PE in 2005; treated with Coumadin Reason for Visit Reason for Visit: Reason For Visit: PULMONARY EMBOLISM Hospital Course Hospital Course: Patient was admitted to the medical surgical floor and placed on telemetry monitoring. She had already received a therapeutic dose of Lovenox in the ED, then was started on Eliquis 10 mg BID when her next Lovenox dose would be due. She has no evidence on CT of right heart strain. She noted some R calf tenderness and ankle swelling so will have venous duplex done to r/o DVT. As this will not change the overall management, I have ordered this to be done as outpatient. She has been hemodynamically stable, not required supplemental oxygen, been ambulatory with walker, tolerating oral intake without difficulty and will be continued on anticoagulation with Eliquis. I discussed the risks and benefits of anticoagulation including risk of bleeding which she understands and is agreeable to continued treatment. She had been on ASA 325 mg daily for DVT prophylaxis following her R knee surgery but with initiation of therapeutic anticoagulation, I have discontinued the aspirin to minimize risk of bleeding. I anticipate treatment course of 3-6 months as this is a provoked PE. Of note, she did qualify for 2 L NC following home oxygen evaluation done prior to last discharge but states she is no longer needing to use it. She has not required supplemental oxygen at all while hospitalized. Discharge Summary: -Patient to follow up with primary care provider within 1 week -Patient to follow up with Dr. Garcia as scheduled on 08/27/2019 at 1:45 p.m. Physical Exam Const: COMMON NORMALS: no apparent distress, oriented x3 and alert GENERAL APPEARANCE: cooperative and comfortable NUTRITIONAL APPEARANCE: obese morbidly obese ORIENTATION/CONSCIOUSNESS: Yes awake HENMT: COMMON NORMALS: normocephalic, head/scalp atraumatic, hearing grossly normal bilaterally and moist oral mucous membranes HEAD & SCALP: normocephalic and atraumatic Eye: COMMON NORMALS: PERRL, EOMs intact bilaterally and conjunctivae normal CONJUNCTIVA: Yes conjunctivae normal PUPIL: Yes PERRL Neck/C-Spine: COMMON NORMALS: full ROM GENERAL: Yes normal visual inspection and Yes trachea midline Resp: COMMON NORMALS: normal respiratory effort, no retractions, no use of accessory muscles and clear to auscultation bilaterally EFFORT & INSPECTION: Yes able to speak in complete sentences, Yes symmetric chest movement and No tachypneic AUSCULTATION: clear to auscultation bilaterally Cardio: COMMON NORMALS: regular rate, regular rhythm, S1 normal heart sound, S2 normal heart sound and no murmurs RATE: regular rate RHYTHM: regular rhythm HEART SOUNDS: S1 normal and S2 normal GI: COMMON NORMALS: normal to inspection, nondistended, normoactive bowel sounds, soft to palpation and non-tender INSPECTION: Yes central obesity PALPATION: Yes soft Extremity: COMMON NORMALS: normal to inspection, full ROM and no clubbing, cyanosis or edema; negative for no pedal edema OTHER: -some noted R calf tenderness Neuro: COMMON NORMALS: oriented x3, moves all extremities, no focal motor deficits and no sensory deficits noted SENSORIUM/ORIENTATION: Yes alert Psych: COMMON NORMALS: mental status grossly normal, thought process normal, cooperative, affect normal and speech normal SPEECH: Yes normal speech THOUGHT PROCESS: normal thought process Skin: COMMON NORMALS: no rashes or lesions noted, no jaundice, no petechiae and no mottling GENERAL SKIN EXAM: no rashes or lesions noted Discharge Data Data Completed and Pending: Completed Studies During Hospitalization Category Date Time Status CT angio chest PE protcl [id number] Urge nt Cat Scan 08/23/19 14:48 Completed Pending at discharge Category [place] [id number] Routin e Ultrasound 08/24/19 18:12 Ordered Labs from last 24 hours 08/23/19 08/23/19 08/23/19 21:12 17:12 15:10 WBC RBC Hgb Hct MCV MCH MCHC RDW Plt Count MPV Neut % (Auto) Lymph % (Auto) Page % (Auto) Eos % (Auto) Baso % (Auto) Neut # (Auto) Lymph # (Auto) Page # (Auto) Eos # (Auto) Baso # (Auto) Nucleated RBC % (a uto) Nucleated RBCs # Sodium Potassium Chloride Carbon Dioxide Anion Gap BUN Creatinine GFR Calculation Glucose Calcium Total Bilirubin AST ALT Alkaline Phosphata se Troponin I 6 Hour 8.91 Troponin I Hi Sens Del -0.09 L Troponin T Baselin e 9 Troponin T 120 Min levar 8.76 Delta Troponin T -0.24 L NT-Pro-B Natriuret Pep Total Protein Albumin Globulin 08/23/19 08/23/19 15:10 15:10 WBC 9.7 RBC 4.04 L Hgb 12.1 Hct 37.5 MCV 92.8 MCH 30.0 MCHC 32.3 RDW 12.9 Plt Count 465 H MPV 9.4 Neut % (Auto) 67.2 Lymph % (Auto) 19.4 Page % (Auto) 9.6 Eos % (Auto) 1.9 Baso % (Auto) 1.0 Neut # (Auto) 6.5 Lymph # (Auto) 1.9 Page # (Auto) 0.9 Eos # (Auto) 0.2 Baso # (Auto) 0.1 Nucleated RBC % (a uto) 0 Nucleated RBCs # 0.0 Sodium 137 Potassium 4.2 Chloride 100 Carbon Dioxide 25 Anion Gap 16.2 BUN 14 Creatinine 0.7 GFR Calculation 82.7 L Glucose 114 Calcium 9.9 Total Bilirubin 0.4 AST 20 ALT 15 Alkaline Phosphata se 118 H Troponin I 6 Hour Troponin I Hi Sens Del Troponin T Baselin e Troponin T 120 Min levar Delta Troponin T NT-Pro-B Natriuret Pep 154 H Total Protein 7.3 Albumin 4.0 Globulin 3.3 Vitals: Last Vital Signs Temp 97.9 F 08/24/19 07:42 Pulse 68 08/24/19 07:42 Resp 18 08/24/19 07:42 BP 117/76 08/24/19 07:42 Pulse Ox 98 08/24/19 07:42 Discharge Plan Discharge Patient Disposition: Home Health Service Condition: Stable Prescriptions: New Mistyis DVT-PE Treat 30D Start 5 mg (74 tabs) tablets,dose pack See Rx Instructions .ROUTE .COMPLEX Qty: 74 RF: 0 Continued amlodipine [Norvasc] 10 mg tablet 10 mg PO DAILY RF: 0 citalopram [Celexa] 20 mg tablet 20 mg PO DAILY RF: 0 pantoprazole [Protonix] 40 mg tablet,delayed release (DR/EC) 40 mg PO DAILY RF: 0 tizanidine 2 mg capsule 2 mg PO BID PRN (Reason: muscle relaxer) RF: 0 levothyroxine 50 mcg capsule 50 mcg PO DAILY RF: 0 trazodone 50 mg Tablet 50 mg PO BEDTIME PRN (Reason: Insomnia) RF: 0 docusate sodium 100 mg Capsule 200 mg PO DAILY RF: 0 celecoxib 200 mg capsule 200 mg PO BID RF: 0 famotidine [Pepcid] 20 mg Tablet 20 mg PO DAILY RF: 0 oxycodone-acetaminophen 5-325 mg Tablet 1 tab PO Q4H PRN (Reason: Severe Pain) Qty: 30 RF: 0 Discontinued aspirin 325 mg Tablet,Delayed Release (Dr/Ec) 325 mg PO DAILY Qty: 30 RF: 0 Discharge Orders: Discharge Order (Routine); Ordered 08/24/19 Ordered By: Ayanna Hilton Other Ambulatory Orders: [place] [id number] (Routine) Timeframe: 1 Week Location: [facility] Ordered By: Ayanna Hilton Referrals: Marcus Rodriguez [Primary Care Provider] - 7-10 days (Please call Sunday to set up a Post-hospital discharge follow up. Has right sided PE, started on anticoagulation with Eliquis) Discharge Diet: Low Salt Discharge Activity: Resume usual activity Patient Instructions: Apixaban (By mouth), Pulmonary Embolism (DC), Low Sodium Diet (DC) Discharge Attestations Time Spent in Discharge Care*: greater than 30 min Specific Discharge Activities: Specific discharge activities: educating patient, educating and/or supporting family/caregiver, discussing with correctional counselor/case manager/social workers/dc planners, documenting/other paperwork and evaluating patient/reviewing data Status at Discharge: Cognitive status at discharge: cognitively intact, Behavioral status at discharge: cooperative, Functional status at discharge: independent ambulation Overall status at discharge: patient is back to baseline Quality Metrics Clinical Quality Measures During this hospital stay, did patient experience: VTE Contraindication to Overlap Therapy: Overlap treatment not indicated VTE Discharge Education: Education about anticoagulant therapy/Care Notes given, Medication side effects education and Follow-up arranged Deep Vein Thrombosis/Pulmonary Embolism Present on Admission: Yes Coding Level of Care Code Acute 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
[2019-08-24] MEDS: pantoprazole DR 40 mg Tablet PO (08:40)
[2019-08-24] MEDS: apixaban 5 mg Tablet 10 MG PO (08:40)
[2019-08-24] MEDS: levothyroxine 50 mcg Tablet PO (08:41)
[2019-08-24] MEDS: docusate sodium 100 mg Capsule 200 MG PO (08:41)
[2019-08-24] MEDS: citalopram 20 mg Tablet PO (08:41)
[2019-08-24] MEDS: amlodipine 10 mg Tablet PO (08:41)
[2019-08-24 10:30] VITALS: BP 117/76; PULSE 68; RESP 18; TEMP 36.6; O2SAT 98
[2019-08-24 10:44] VITALS: BP 117/76; PULSE 68; RESP 18; TEMP 36.6; O2SAT 98
--- NOTE | 2019-08-24 10:45 | PC.NURSE ---
Discharge instructions and follow up appt given, voiced full understanding,IV DC cath intact bleeding controlled with 2X2 and coban, to main entrance via wheelchair to POV with no difficulties
== END 2019-08-24 10:43 | disposition home health service (06) ==
LOC: ER 16:10 → MEDSURG 16:39
PROVIDERS: Admitting Provider Family Medicine; Emergency Provider Emergency Medicine; Family Provider Physician Assistant Medical; PCP Physician Assistant Medical; Visit Provider Family Medicine
DX: I26.94 Multiple subsegmental thrombotic pulmonary emboli without acute cor pulmonale (principal); J44.1 Chronic obstructive pulmonary disease with (acute) exacerbation; Z96.651 Presence of right artificial knee joint; K21.9 Gastro-esophageal reflux disease without esophagitis; I11.0 Hypertensive heart disease with heart failure; I50.9 Heart failure, unspecified; I25.10 Atherosclerotic heart disease of native coronary artery without angina pectoris; E03.9 Hypothyroidism, unspecified; E66.01 Morbid (severe) obesity due to excess calories; Z68.34 Body mass index [BMI] 34.0-34.9, adult; Z86.711 Personal history of pulmonary embolism; Z79.01 Long term (current) use of anticoagulants
CPT/HCPCS: 12345; 36415; 71275; 80053; 83880; 84484; 85025; 93005; 96360; 96372; 99281; 99285; G0378; J1650; J7030; Q9967

== ENCOUNTER → 2019-08-27 14:02 | Outpatient (BNVA) | payer MEDICARE, SELFPAY | PROVIDERS: Family Provider Physician Assistant Medical; PCP Physician Assistant Medical; Visit Provider Specialist | DX: Z96.651 Presence of right artificial knee joint (principal); M94.262 Chondromalacia, left knee | CPT/HCPCS: 73560; 73565 ==

== ENCOUNTER 2019-09-07 16:39 | Inpatient (IN) | payer MEDICARE, SELFPAY ==
[2019-09-07 16:41] VITALS: BP 139/96; PULSE 112; RESP 20; TEMP 36.9; O2SAT 96; BMI 35.4
--- NOTE | 2019-09-07 16:42 | ED_ITS ---
Entered by Federica Reza, acting as scribe for HPI - Chest Pain General: Chief Complaint: Chest Pain Stated Complaint: CP Time Seen by Provider: 09/07/19 16:42 Source: patient Mode of arrival: EMS Limitations: no limitations History of Present Illness: HPI narrative: 68 yo Female presents to ED with complaint of chest tightness. Pt states that the pain has been radiating into her back and has been causing shortness of breath and nausea. Pt states that she was diaphoretic. Pt states that her pain started yesterday and continued this morning. Pt states that she doesn't have much pain in her chest now. MD complaint: chest pain Pertinent past history: coronary artery disease Onset (ago): day(s) Timing of current episode: episodic and still present Prior episodes: Yes Onset: during rest and during exertion Pain location: substernal Pain radiation: back Quality: tightness Relieving factors: rest Exacerbating factors: exertion and movement Context: recent surgery and history of DVT/PE Associated symptoms: Reports diaphoresis, dyspnea and nausea; Deny fever(s), palpitations, syncope or vomiting Risk Factors: Coronary artery disease risk factors: hypertension Review of Systems General: Reports: other (negative unless marked) Const: Reports: diaphoresis; Denies: fever Eyes: Denies: change in vision or blurry vision ENMT: Denies: throat pain, painful swallowing, hoarseness, ear pain, ear discharge, Change in hearing or nasal discharge Card: Reports: chest pain and shortness of breath on exertion; Denies: palpitations, irregular heart rhythm, syncope, pre-syncope or shortness of breath when lying down Resp: Reports: shortness of breath GI: Reports: nausea; Denies: vomiting : Denies: flank pain, painful urination, urinary frequency, urinary urgency, decreased urine ouput, urinary incontinence or blood in urine Musc: Denies: neck pain, back pain, extremity pain, extremity swelling, joint pain, joint swelling, joint warmth or joint stiffness Skin/Breast: Denies: rash, skin tenderness or yellow skin Neuro: Denies: headache, numbness in extremities, weakness in extremities, changes in sensation, lack of coordination, difficulty walking, dizziness, vertigo or confusion Endo: Denies: excessive thirst, tired all the time, cold intolerance, excessive sweating, flushing or hot flashes Judah/Lymph: Denies: easy bruising, easy bleeding, petechiae or enlarged lymph nodes All/Imm: Denies: hives, throat swelling, tongue swelling, facial swelling or acute wheezing PFSH ED PFSH: Medical History Arthritis of knee, right Arthritis of left knee COPD (chronic obstructive pulmonary disease) -Patient has known COPD secondary to extensive secondhand smoke exposure, was not oxygen dependent at baseline until most recent admission for R knee arthroplasty, had home oxygen evaluation done prior to d/c and qualified for 2 L NC which she is no longer requiring at home -no evidence of acute exacerbation -Monitor respiratory status; stable -supplemental oxygen as needed; none needed GERD (gastroesophageal reflux disease) -continue PPI -Had EGD done in 2018 showing moderate hiatal hernia and mild esophageal ring Hypertension -continue oral antihypertensives, blood pressure is currently controlled Pulmonary embolism in 2005; provoked following R knee surgery Treated with Coumadin x 3 months Surgical History H/O tubal ligation History of tonsillectomy S/P total knee arthroplasty -had total R knee arthroplasty secondary to severe degenerative OA; done by Dr. Garcia on 08/12/2019 -pain control as needed -working well with therapy; fall precautions; ambulatory with walker -knee incision is well approximated, anahi in place, no edema/erythema/hematoma Family History Sister Lung disease has 2 sisters with COPD secondary to chronic smoking Other Cancer Social History Smoking and tobacco status: never smoked Second hand smoke exposure: Yes (extensive) Alcohol intake: never Physical Exam Const: COMMON NORMALS: no apparent distress, oriented x3, no limitations, healthy appearing and well nourished EXAM LIMITATIONS: no altered mental status GENERAL APPEARANCE: cooperative, well kempt and well developed ORIENTATION/CONSCIOUSNESS: Yes awake HENMT: COMMON NORMALS: normocephalic, head/scalp atraumatic, hearing grossly normal bilaterally, external ears normal, EAC's normal, external nose normal and moist oral mucous membranes HEAD & SCALP: normal to inspection, normocephalic and atraumatic FACE & SINUS: normal facial exam and face symmetric NOSE: external nose normal and nares normal EXTERNAL EAR: Yes external ears normal EXTERNAL AUDITORY CANAL: EAC's normal MOUTH: oral and palatal mucosa normal and tongue normal Eye: COMMON NORMALS: PERRL, EOMs intact bilaterally, conjunctivae normal and no scleral icterus GENERAL EYE: normal appearance of both eyes and normal light reflex CONJUNCTIVA: Yes conjunctivae normal SCLERA: sclerae normal CORNEA: Yes corneas normal PUPIL: Yes PERRL DIRECT OPHTHALMOSCOPY: Yes normal light reflex Neck/C-Spine: COMMON NORMALS: full ROM, no lymphadenopathy, supple, no meningeal signs and no JVD GENERAL: Yes normal visual inspection and Yes trachea midline CERVICAL SPINE: Yes cervical ROM normal Chest: COMMONS NORMALS: inspection of chest normal and palpation of chest normal Resp: COMMON NORMALS: normal respiratory effort, no retractions, no use of accessory muscles and clear to auscultation bilaterally EFFORT & INSPECTION: Yes able to speak in complete sentences AUSCULTATION: clear to auscultation bilaterally Cardio: COMMON NORMALS: no JVD, regular rate, regular rhythm, S1 normal heart sound, S2 normal heart sound, no gallops, no clicks, no murmurs and no rub JUGULAR VENOUS DISTENTION: no JVD RATE: regular rate RHYTHM: regular rhythm HEART SOUNDS: S1 normal and S2 normal GI: COMMON NORMALS: soft to palpation, non-tender, no hepatosplenomegaly and no masses INSPECTION: Yes normal to inspection PALPATION: Yes soft and Yes no hepatosplenomegaly : COMMON NORMALS: Yes no CVA tenderness BLADDER/KIDNEY EXAM: Yes no CVA tenderness Back/Pelvis: COMMON NORMALS: no CVA tenderness, thoracic and lumbar spine normal to inspection, no thoracic nor lumbar tenderness and thoraco-lumbar ROM normal Extremity: COMMON NORMALS: normal to inspection, full ROM, normal capillary refill, no joint enlargement, no clubbing, cyanosis or edema and no calf tenderness Neuro: COMMON NORMALS: oriented x3, CN's II-XII intact bilaterally, moves all extremities, no focal motor deficits and no sensory deficits noted MENINGEAL SIGNS: Yes no meningeal signs Psych: COMMON NORMALS: mental status grossly normal, thought process normal, cooperative, affect normal, speech normal and activity/motor behavior normal APPEARANCE: Yes well kempt SPEECH: Yes normal speech THOUGHT PROCESS: normal thought process Skin: COMMON NORMALS: no rashes or lesions noted, skin turgor normal, no jaundice, no petechiae and no mottling GENERAL SKIN EXAM: no rashes or lesions noted and turgor normal Course Vital Signs: Vital signs: Vital Signs Temperature 98.4 F 09/07/19 16:41 Pulse Rate 78 09/07/19 21:29 Respiratory Rate 25 H 09/07/19 21:29 Blood Pressure 138/91 09/07/19 21:29 Pulse Oximetry 95 09/07/19 21:29 MDM - Chest Pain MDM Narrative: Medical decision making narrative: The patient was pain-free with no therapy she had refused nitroglycerin. She then developed palpitations which was different from the discomfort she had before. Her heart rate was noted to be in the 150s to 160s. EKG showed a SVT at 160. Was possible this could be occult A. fib/flutter. As is getting ready to give adenosine and follow this with Cardizem if it was indeed flutter her heart rhythm converted spontaneously. She remained asymptomatic for all of it. I reviewed the case in full with Dr. Hatfield who is on-call for the hospitalist service and he is agreeable to admission. Lab Data: Attestation: I reviewed the patient's lab results. Labs: Lab Results 09/07/19 09/07/19 09/07/19 Range/Units 16:55 16:55 16:55 WBC 7.4 (4.0-10.0) 10^3/ uL RBC 4.60 (4.1-5.3) 10^6/u L Hgb 13.6 (11.5-15.3) g/dL Hct 43.3 (37.0-47.0) % MCV 94.1 (81-99) fL MCH 29.6 (28.0-34.0) pg MCHC 31.4 (30.0-36.0) g/dL RDW 13.2 (12.1-15.1) % Plt Count 334 (130-400) 10^3/c mm MPV 10.2 (7.4-10.4) fL Neut % (Auto) 51.7 % Lymph % (Auto) 32.6 % Lee % (Auto) 8.7 % Eos % (Auto) 5.2 % Baso % (Auto) 1.5 % Neut # (Auto) 3.8 (1.8-7.7) 10^3/u L Lymph # (Auto) 2.4 (0.8-4.8) 10^3/u L Lee # (Auto) 0.7 (0.2-0.9) 10^3/u L Eos # (Auto) 0.4 (0.0-0.8) 10^3/u L Baso # (Auto) 0.1 (0.0-0.1) 10^3/u L Nucleated RBC % (a uto) 0 % Nucleated RBCs # 0.0 /100WBC PT 15.60 H (10.5-13.3) SECO NDS INR 1.20 (0.8-1.2) APTT 31.8 (23.9-36.7) SECO NDS Sodium 139 (136-145) mmol/L Potassium 3.9 (3.5-5.1) mmol/L Chloride 103 (98-107) mmol/L Carbon Dioxide 24 (22-29) mmol/L Anion Gap 15.9 (5-19) BUN 13 (8-23) mg/dL Creatinine 0.8 (0.5-0.9) mg/dL GFR Calculation 70.9 L (90-130) mL/min Glucose 123 H (65-115) mg/dL Calculated Osmolal ity 286 (285-295) mOsm/k g Calcium 10.2 (8.5-10.5) mg/dL Magnesium 2.0 (1.7-2.3) mg/dL Total Bilirubin 0.4 (0.15-1.2) mg/dL AST 15 (0-32) U/L ALT 10 (0-33) U/L Alkaline Phosphata se 190 H (35-105) IU/L Troponin T Baselin e (0-10) ng/mL Troponin T 120 Min [place] (0-10) ng/mL Delta Troponin T (0-10) ABS# Total Protein 7.6 (6.6-8.7) g/dL Albumin 4.0 (3.5-5.2) g/dL Globulin 3.6 (1.3-4.6) g/dL Triglycerides (0-150) mg/dL Cholesterol (0-200) mg/dL LDL Cholesterol, C alc (50-129) mg/dL HDL Cholesterol (60-100) mg/dL LDL/HDL Ratio (0.00-3.22) RATI O Cholesterol/HDL Ra binu (0.0-4.40) mg/dL Lipase 15 (13-60) U/L TSH (0.27-4.20) uIU/ mL 09/07/19 09/07/19 09/07/19 Range/Units 16:55 16:55 19:12 WBC (4.0-10.0) 10^3/ uL RBC (4.1-5.3) 10^6/u L Hgb (11.5-15.3) g/dL Hct (37.0-47.0) % MCV (81-99) fL MCH (28.0-34.0) pg MCHC (30.0-36.0) g/dL RDW (12.1-15.1) % Plt Count (130-400) 10^3/c mm MPV (7.4-10.4) fL Neut % (Auto) % Lymph % (Auto) % Lee % (Auto) % Eos % (Auto) % Baso % (Auto) % Neut # (Auto) (1.8-7.7) 10^3/u L Lymph # (Auto) (0.8-4.8) 10^3/u L Lee # (Auto) (0.2-0.9) 10^3/u L Eos # (Auto) (0.0-0.8) 10^3/u L Baso # (Auto) (0.0-0.1) 10^3/u L Nucleated RBC % (a uto) % Nucleated RBCs # /100WBC PT (10.5-13.3) SECO NDS INR (0.8-1.2) APTT (23.9-36.7) SECO NDS Sodium (136-145) mmol/L Potassium (3.5-5.1) mmol/L Chloride (98-107) mmol/L Carbon Dioxide (22-29) mmol/L Anion Gap (5-19) BUN (8-23) mg/dL Creatinine (0.5-0.9) mg/dL GFR Calculation (90-130) mL/min Glucose (65-115) mg/dL Calculated Osmolal ity (285-295) mOsm/k g Calcium (8.5-10.5) mg/dL Magnesium 2.3 (1.7-2.3) mg/dL Total Bilirubin (0.15-1.2) mg/dL AST (0-32) U/L ALT (0-33) U/L Alkaline Phosphata se (35-105) IU/L Troponin T Baselin e 7 (0-10) ng/mL Troponin T 120 Min [place] 9.47 (0-10) ng/mL Delta Troponin T 2.47 (0-10) ABS# Total Protein (6.6-8.7) g/dL Albumin (3.5-5.2) g/dL Globulin (1.3-4.6) g/dL Triglycerides 168 H (0-150) mg/dL Cholesterol 190 (0-200) mg/dL LDL Cholesterol, C alc 111 (50-129) mg/dL HDL Cholesterol 45 L (60-100) mg/dL LDL/HDL Ratio 2.47 (0.00-3.22) RATI O Cholesterol/HDL Ra binu 4.22 (0.0-4.40) mg/dL Lipase (13-60) U/L TSH 1.20 (0.27-4.20) uIU/ mL Imaging Data^: CXR: My impression: No acute cardiopulmonary findings. No pulmonary edema or heart failure. CTA Chest: Radiologist's impression: [address] [address] [address] Scan Report Signed Patient: Ernestina Davidson #: [id number] : 9Acct#:[id number] Age/Sex: 68 / FADM Date: 09/07/19 Loc: ERRoom/Bed: Attending Dr: Ordering Provider/Ordering MD: Darlene Decker DO Date of Service: 09/07/19 Procedure(s): CT angio chest PE protcl [id number] Accession Number(s): [id number] Report Number: [id number] PROCEDURE INFORMATION: Exam: CT Angiography Chest With Contrast Exam date and time: 09/07/2019 5:52 PM Age: 68 years old Clinical indication: Chest pain; Type not specified; Patient HX: C/O chest and back pain w SOB - recent dx of pe; Additional info: Chest pain, known pe TECHNIQUE: Imaging protocol: Computed tomographic angiography of the chest with intravenous contrast. 3D rendering: MIP and/or 3D reconstructed images were created by the technologist. Total DLP: 516.71 mGy-cm Radiation optimization: All CT scans at this facility use at least one of these dose optimization techniques: automated exposure control; mA and/or kV adjustment per patient size (includes targeted exams where dose is matched to clinical indication); or iterative reconstruction. Contrast material: OMNI 350; Contrast volume: 95 ml; Contrast route: 18G; COMPARISON: CT angio chest PE protcl [id number] 08/23/2019 3:33 PM FINDINGS: Pulmonary arteries: No visible evidence for pulmonary embolism. No visible pulmonary arterial thrombus. Resolution of the previously demonstrated right lower lobe segmental pulmonary emboli of 08/23/2019. Aorta: Thoracic aorta is nonaneurysmal. Mild arterial sclerotic disease moderately advanced 3 vessel coronary artery disease. Lungs: No visible active interstitial or alveolar airspace disease. 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 This is a benign finding and requires no follow-up. Pleural space: No visible active pleural based disease or pleural effusion. Heart: See Aorta Finding. Gallbladder and bile ducts: Status post cholecystectomy. Small hiatal hernia. Lymph nodes: Unremarkable. No enlarged lymph nodes. Bones/joints: Age-appropriate degenerative disease of the spine with spondylosis deformans and diffuse idiopathic skeletal hyperostosis. Soft tissues: Unremarkable. Other findings: Heavy body habitus. CT/CT angio chest PE protcl [id number] IMPRESSION: 1. No visible evidence for pulmonary embolism. 2. Resolution of the right lower lobe pulmonary emboli of 08/23/2019. 3. Moderately advanced 3 vessel coronary artery disease. Radiation Dose CTDIVOL = (mGy): DLP = 516.71 (mGy-cm) Dictated By:Ramin Marquez Signed By:Jose Marquez Date/Time:09/07/191826 DD/ 25 EKG Data^: EKG 1: Attestation: I personally reviewed and interpreted this EKG as follows: EKG interpretation date: 09/07/19 EKG interpretation time: 16:50 Interpretation: Sinus tachycardia 110 beats a minute, normal intervals, no blocks, mild ST depression in V3 and V4. EKG 2: Attestation: I personally reviewed and interpreted this EKG as follows: EKG interpretation date: 09/07/19 EKG interpretation time: 18:47 Interpretation: Normal sinus rhythm at 82 beats a minute, no acute ST or T wave changes. EKG 3: Attestation: I personally reviewed and interpreted this EKG as follows: EKG interpretation date: 09/07/19 Interpretation: Supraventricular tachycardia with a ventricular rate of 160. Discharge Plan Discharge Patient Disposition: Admitted As Inpatient Admit Provider: Nguyen Souza Discharge Date/Time: 09/07/19 21:08 Coding Level of Care Code ED [employer] Supervisor for Chg Fwd Exam Comprehensive The documentation recorded by the Libia joaquin Carmen, accurately reflects the service I personally performed and the decisions made by Brianne cornejo Eli N Sep 07, 2019 16:39
--- NOTE | 2019-09-07 16:46 | XRR_ITS ---
PROCEDURE INFORMATION: Exam: XR Chest, 1 View Exam date and time: 09/07/2019 5:40 PM Age: 68 years old Clinical indication: Patient HX: Chest pain, PT was seen 2 wks ago, same symptoms TECHNIQUE: Imaging protocol: XR of the chest Views: 1 view. COMPARISON: CR XR chest 1V portable [id number] 08/13/2019 2:17 PM FINDINGS: Lungs: No visible active interstitial or alveolar airspace disease. Calcified granuloma of antecedent histoplasmosis left mid lung stable. Pleural space: Unremarkable. No pleural effusion. No pneumothorax. Heart/Mediastinum: Cardiac structures in configuration stable with mild arterial sclerosis and cardiac size upper limits of normal. Bones/joints: Age-appropriate degenerative findings. XR/XR chest 1V portable [id number] IMPRESSION: Nonacute.
--- NOTE | 2019-09-07 16:47 | CTR_ITS ---
PROCEDURE INFORMATION: Exam: CT Angiography Chest With Contrast Exam date and time: 09/07/2019 5:52 PM Age: 68 years old Clinical indication: Chest pain; Type not specified; Patient HX: C/O chest and back pain w SOB - recent dx of pe; Additional info: Chest pain, known pe TECHNIQUE: Imaging protocol: Computed tomographic angiography of the chest with intravenous contrast. 3D rendering: MIP and/or 3D reconstructed images were created by the technologist. Total DLP: 516.71 mGy-cm Radiation optimization: All CT scans at this facility use at least one of these dose optimization techniques: automated exposure control; mA and/or kV adjustment per patient size (includes targeted exams where dose is matched to clinical indication); or iterative reconstruction. Contrast material: OMNI 350; Contrast volume: 95 ml; Contrast route: 18G; COMPARISON: CT angio chest PE protcl [id number] 08/23/2019 3:33 PM FINDINGS: Pulmonary arteries: No visible evidence for pulmonary embolism. No visible pulmonary arterial thrombus. Resolution of the previously demonstrated right lower lobe segmental pulmonary emboli of 08/23/2019. Aorta: Thoracic aorta is nonaneurysmal. Mild arterial sclerotic disease moderately advanced 3 vessel coronary artery disease. Lungs: No visible active interstitial or alveolar airspace disease. 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 This is a benign finding and requires no follow-up. Pleural space: No visible active pleural based disease or pleural effusion. Heart: See Aorta Finding. Gallbladder and bile ducts: Status post cholecystectomy. Small hiatal hernia. Lymph nodes: Unremarkable. No enlarged lymph nodes. Bones/joints: Age-appropriate degenerative disease of the spine with spondylosis deformans and diffuse idiopathic skeletal hyperostosis. Soft tissues: Unremarkable. Other findings: Heavy body habitus. CT/CT angio chest PE protcl [id number] IMPRESSION: 1. No visible evidence for pulmonary embolism. 2. Resolution of the right lower lobe pulmonary emboli of 08/23/2019. 3. Moderately advanced 3 vessel coronary artery disease. Radiation Dose CTDIVOL = (mGy): DLP = 516.71 (mGy-cm)
--- NOTE | 2019-09-07 16:47 | ECG_ITS ---
Measurements Intervals [place] Rate: 110 P: -3 TN: 149 QRS: -1 QRSD: 79 T: -6 QT: 327 QTc: 444 SINUS TACHYCARDIA POSSIBLE INFERIOR MYOCARDIAL INFARCTION , OF INDETERMINATE AGE [30 ms Q WAVE IN II II/aVF] Compared to ECG 08/23/2019 17:06:27 Myocardial infarct finding now present Sinus rhythm no longer present Electronically Signed On 09-07-2019 19:51:13 CDT by Nguyen Wong M.D. [id number]
[2019-09-07 17:03] LABS: Basophils # 0.1 10^3/uL (0.0-0.1); Basophils % 1.5 %; Eosinophils # 0.4 10^3/uL (0.0-0.8); Eosinophils % 5.2 %; Hematocrit 43.3 % (37.0-47.0); Hemoglobin 13.6 g/dL (11.5-15.3); Lymphocytes # 2.4 10^3/uL (0.8-4.8); Lymphocytes % 32.6 %; Mean Corpuscular HGB Conc 31.4 g/dL (30.0-36.0); Mean Corpuscular Hemoglobin 29.6 pg (28.0-34.0); Mean Corpuscular Volume 94.1 fL (81-99); Mean Platelet Volume 10.2 fL (7.4-10.4); Monocytes # 0.7 10^3/uL (0.2-0.9); Monocytes % 8.7 %; Neutrophils # 3.8 10^3/uL (1.8-7.7); Neutrophils % 51.7 %; Nucleated Red Blood Cells % 0 %; Platelet Count 334 10^3/cmm (130-400); Red Cell Distribution Width 13.2 % (12.1-15.1); White Blood Count 7.4 10^3/uL (4.0-10.0)
[2019-09-07 17:18] LABS: Partial Thromboplastin Time 31.8 SECONDS (23.9-36.7)
[2019-09-07 17:30] LABS: Alanine Aminotransferase 10 U/L (0-33); Alkaline Phosphatase 190 IU/L (35-105); Anion Gap 15.9 (5-19); Aspartate Amino Transferase 15 U/L (0-32); Blood Urea Nitrogen 13 mg/dL (8-23); Calcium 10.2 mg/dL (8.5-10.5); Carbon Dioxide 24 mmol/L (22-29); Chloride 103 mmol/L (98-107); Globulin 3.6 g/dL (1.3-4.6); Glomerular Filtration Rate 70.9 mL/min (90-130); Glucose 123 mg/dL (65-115); Lipase 15 U/L (13-60); Osmolality Calculated 286 mOsm/kg (285-295); Potassium 3.9 mmol/L (3.5-5.1); Sodium 139 mmol/L (136-145); Total Bilirubin 0.4 mg/dL (0.15-1.2); Total Protein 7.6 g/dL (6.6-8.7)
[2019-09-07 17:32] LABS: Troponin(5th) Baseline 7 ng/mL (0-10)
[2019-09-07] MEDS: aspirin 325 mg Tablet PO (17:53)
--- NOTE | 2019-09-07 17:54 | PC.NURSE ---
pt refused nitro, advised Dr Ghotra
[2019-09-07] MEDS: iohexol 350 mg/mL 100 mL Btl IV (18:02)
[2019-09-07 18:25] VITALS: BP 109/80; PULSE 86; RESP 16; O2SAT 96
--- NOTE | 2019-09-07 18:47 | ECG_ITS ---
Measurements Intervals [place] Rate: 82 P: -15 NC: 166 QRS: -8 QRSD: 80 T: -2 QT: 382 QTc: 446 SINUS RHYTHM PROBABLE INFERIOR MYOCARDIAL INFARCTION , PROBABLY OLD [35 ms Q WAVE IN II/aVF] Compared to ECG 09/07/2019 16:50:39 Sinus tachycardia no longer present Myocardial infarct finding still present Electronically Signed On 09-08-2019 20:51:46 CDT by Nguyen Wong M.D. [email or web address]
--- NOTE | 2019-09-07 19:00 | ECG_ITS ---
Measurements Intervals [place] Rate: 160 P: [place]: 0 QRS: 47 QRSD: 90 T: 3 QT: 286 QTc: 467 SUPRAV[address]TRICULAR TACHYC[address]IA MODERATE ST DEPRESSION [0.05+ mV ST DEPRESSION] Compared to ECG 09/07/2019 16:50:39 ST (T wave) deviation now present Sinus tachycardia no longer present Myocardial infarct finding no longer present Electronically Signed On 09-08-2019 20:47:14 CDT by Nguyen Wong M.D. [email or web address]
[2019-09-07] MEDS: sodium chloride 0.9% 1,000 ML 999 ML IV ×2 (19:15→23:19)
[2019-09-07 19:33] LABS: Troponin 5 2HR 9.47 ng/mL (0-10); Troponin 5 2HR Delta 2.47 ABS# (0-10)
--- NOTE | 2019-09-07 19:40 | P.HP_ITS ---
Providers/Chief Complaint Primary Care Provider: Marcus Rodriguez Chief Complaint: CP History of Present Illness Ernestina Davidson is a 68 year old female who recently had right knee surgery developed PE, currently on Eliquis, hypertension, hypothyroidism, came in with chief complaint of chest discomfort. Patient is stating that her chest discomfort started 2 to 3 days ago which she describes as substernal, squeezing and tightness feeling which would last for few minutes, it would radiate towards her neck and back, she has not noticed any relieving or aggravating factors, however this chest pain originates at rest, she does not drink coffee, she does not smoke, no previous history of OR or stent placement, cardiac catheterization in 2017 showed irregularities in LAD, left circumflex and RCA which was being managed with aspirin and atorvastatin. Patient is denying shortness of breath. She is denying orthopnea, PND, leg swelling, diarrhea, recent traveling domestically international. Diagnostics in ER showed normal hemodynamics, per her rhythm has been fluctuating between SVT and normal sinus rhythm which resolved on its own without any medications, no short CT interval WPW seen, patient did not experience any chest pain or palpitations during these rhythm changes. I have ordered TSH, magnesium level, ordered stress test for the morning Review of Systems Const: Denies: fever, chills, body aches or fatigue Eyes: Denies: change in vision ENMT: Denies: throat pain Card: Reports: chest pain and palpitations; Denies: irregular heart rhythm, edema, swelling of feet/ankles, lightheadedness, syncope or shortness of breath when lying down Resp: Denies: shortness of breath or non-productive cough GI: Denies: abdominal pain, nausea or vomiting : Denies: flank pain or difficulty urinating Musc: Denies: neck pain or back pain Skin/Breast: Denies: rash or itching Neuro: Denies: headache Psych: Denies: anxiety Endo: Denies: excessive urination Judah/Lymph: Denies: easy bruising All/Imm: Denies: hives Medications/Allergies Allergies Allergy/AdvReac Type Severity Reaction Status Date / Time No Known Allergies Allergy Verified 08/27/19 14:20 PFSH Acute PFSH: Medical History Arthritis of knee, right Arthritis of left knee COPD (chronic obstructive pulmonary disease) -Patient has known COPD secondary to extensive secondhand smoke exposure, was not oxygen dependent at baseline until most recent admission for R knee arthroplasty, had home oxygen evaluation done prior to d/c and qualified for 2 L NC which she is no longer requiring at home -no evidence of acute exacerbation -Monitor respiratory status; stable -supplemental oxygen as needed; none needed GERD (gastroesophageal reflux disease) -continue PPI -Had EGD done in 2018 showing moderate hiatal hernia and mild esophageal ring Hypertension -continue oral antihypertensives, blood pressure is currently controlled Pulmonary embolism in 2005; provoked following R knee surgery Treated with Coumadin x 3 months Surgical History H/O tubal ligation History of tonsillectomy S/P total knee arthroplasty -had total R knee arthroplasty secondary to severe degenerative OA; done by Dr. Garcia on 08/12/2019 -pain control as needed -working well with therapy; fall precautions; ambulatory with walker -knee incision is well approximated, anahi in place, no edema/erythema/hematoma Family History Sister Lung disease has 2 sisters with COPD secondary to chronic smoking Other Cancer Social History Smoking and tobacco status: never smoked Second hand smoke exposure: Yes (extensive) Alcohol intake: never Vitals/I&O/Wt Last Vital Signs Temp 98.4 F 09/07/19 16:41 Pulse 86 09/07/19 18:25 Resp 16 09/07/19 18:25 BP 109/80 09/07/19 18:25 Pulse Ox 96 09/07/19 18:25 Weight last 48 hrs Weight 90.718 kg Physical Exam Narrative: EXAM NARRATIVE: This is a very pleasant female lying comfortably in her bed Hemodynamically currently stable, I have reviewed her EKG which showed SVT with spontaneous conversion to normal sinus rhythm Currently she is chest pain-free S1, S2 no murmur appreciated Abdomen soft, distended, with obesity, bowel sounds present No lower extremity edema Lungs clear to auscultation bilaterally Neurological nonfocal exam Appropriate mood and affect Skin does not show any sign of ischemia gangrene ulcer Data : 09/07/19 16:55 09/07/19 16:55 A&P Assessment and plan (1) Unstable angina: Status: Acute Code(s): I20.0 - Unstable angina (2) SVT (supraventricular tachycardia): Status: Acute Code(s): I47.1 - Supraventricular tachycardia Additional A&P Information Unstable angina Chest pain at rest, substernal, radiating towards her neck, Multiple risk factors for coronary disease, dyslipidemia, hypothyroidism, obesity, previous history of luminal irregularities in 2017 and left circumflex, LAD and RCA with occlusion of PDA I would order TSH, lipid profile, A1c N.p.o. after midnight, Lexiscan stress test in the morning, echo to see wall motion abnormalities I would hold her celecoxib for now Continue Eliquis CTA did not show low clot burden which was seen on previous recent CTA SVT with spontaneous conversion to normal sinus rhythm No electrolyte imbalance seen, she is not hypoxic, No signs of WPW, no QT prolongation seen, will check magnesium level, I would use metoprolol IV as needed if heart rate is fluctuating about 100 Pulmonary embolism which was provoked after knee surgery No recent clot burden seen on CTA chest, continue Eliquis 5 mg twice a day Full code Cardiac diet and n.p.o. status after midnight Attestations Medical Necessity Statement*: Anticipating discharge less than 48 hours after we rule out cardiac etiology for this chest pain Time Spent in Patient Care: 40 Coding Level of Care Code Acute Machine Operator for Yeny Rockwell Diagnoses Unstable angina I20.0 SVT (supraventricular tachycardia) I47.1
[2019-09-07] MEDS: metoprolol tartrate 1 mg/1 mL SDV 5 mL 5 MG IV (20:21)
[2019-09-07 20:59] VITALS: BP 113/80; PULSE 74; RESP 18; O2SAT 95
[2019-09-07 21:29] VITALS: BP 138/91; PULSE 78; RESP 25; O2SAT 95
[2019-09-07 21:41] LABS: Chol HDL Ratio 4.22 mg/dL (0.0-4.40); Cholesterol 190 mg/dL (0-200); HDL Cholesterol 45 mg/dL (60-100); LDL Cholesterol Calculated 111 mg/dL (50-129); LDL HDL Ratio 2.47 RATIO (0.00-3.22); Magnesium 2.3 mg/dL (1.7-2.3); Triglycerides 168 mg/dL (0-150)
[2019-09-07 22:09] LABS: Estmated Average Glucose 103; Hemoglobin A1C 5.2 % (4.0-6.0)
[2019-09-07] MEDS: atorvastatin 40 mg Tablet PO (22:17)
--- NOTE | 2019-09-07 22:47 | ECG_ITS ---
Measurements Intervals [place] Rate: 63 P: -10 WV: 164 QRS: -2 QRSD: 86 T: 28 QT: 404 QTc: 415 SINUS RHYTHM WITH SINUS ARRHYTHMIA PROBABLE INFERIOR MYOCARDIAL INFARCTION [35 ms Q WAVE IN II/aVF], PROBABLY OLD WITH POSTERIOR EXTENSION [PROMINENT R WAVE IN V1 Compared to ECG 09/07/2019 16:50:39 Sinus tachycardia no longer present Myocardial infarct finding still present Electronically Signed On 09-08-2019 20:51:49 CDT by Nguyen Wong M.D. [email or web address]
--- NOTE | 2019-09-07 22:48 | PC.NURSE ---
2044 Received patient from the emergency department by bed. Patient is awake and alert and is able to ask questions at this time. receiver assessment completed per flow sheet. Patient has right scar from recent right knee replacement, area is well approximated without any redness, patient denies being uncomfortable. Teaching provided to patient regarding call light system. Patient verbalizes understanding. Care Continued.
[2019-09-07 23:10] VITALS: BP 96/64; PULSE 68; RESP 16; TEMP 36.9; O2SAT 94
[2019-09-07 23:26] LABS: Troponin 5 6HR 7.27 ng/mL (0-10); Troponin 5 6HR Delta 0.27 ng/L (0-12)
[2019-09-08] VITALS (7 sets, daily range): BP systolic 104–140; BP diastolic 63–87; PULSE 70–85; RESP 16–21; TEMP 36.6–37.4; O2SAT 71–96
[2019-09-08 05:36] LABS: Basophils # 0.1 10^3/uL (0.0-0.1); Basophils % 0.9 %; Eosinophils # 0.5 10^3/uL (0.0-0.8); Eosinophils % 6.8 %; Hematocrit 37.2 % (37.0-47.0); Hemoglobin 11.6 g/dL (11.5-15.3); Lymphocytes # 2.4 10^3/uL (0.8-4.8); Lymphocytes % 35.7 %; Mean Corpuscular HGB Conc 31.2 g/dL (30.0-36.0); Mean Corpuscular Hemoglobin 29.6 pg (28.0-34.0); Mean Corpuscular Volume 94.9 fL (81-99); Mean Platelet Volume 10.3 fL (7.4-10.4); Monocytes # 0.7 10^3/uL (0.2-0.9); Monocytes % 11.1 %; Neutrophils % 44.9 %; Nucleated Red Blood Cells % 0 %; Platelet Count 292 10^3/cmm (130-400); Red Blood Count 3.92 10^6/uL (4.1-5.3); Red Cell Distribution Width 13.3 % (12.1-15.1); White Blood Count 6.6 10^3/uL (4.0-10.0)
[2019-09-08 05:58] LABS: Anion Gap 11.9 (5-19); Blood Urea Nitrogen 13 mg/dL (8-23); Calcium 9.4 mg/dL (8.5-10.5); Carbon Dioxide 27 mmol/L (22-29); Chloride 106 mmol/L (98-107); Glomerular Filtration Rate 61.9 mL/min (90-130); Glucose 118 mg/dL (65-115); Osmolality Calculated 289 mOsm/kg (285-295); Potassium 3.9 mmol/L (3.5-5.1); Sodium 141 mmol/L (136-145)
--- NOTE | 2019-09-08 06:00 | ECG_ITS ---
NAME OF STUDY: LEXISCAN SESTAMIBI STRESS TEST INDICATION: Chest Pain RESULTS TO FATOUMATA ANAYA PROCEDURE: At the baseline, the EKG revealed normal sinus rhythm with some nonspecific T wave changes. Poor R wave progression. The baseline blood pressure was 113/74 mm Hg with a heart rate of74 beats/min. Lexiscan was infused over a period of 20 seconds. A total of 0.4 milligrams of Lexiscan was infused. The stress phase was continued for a total of 5 minutes. Heart rate at the end of the stress phase was 91 with a blood pressure 136/74. The EKG at the peak infusion revealed frequent supraventricular ectopics with no significant ST-T changes. Sestamibi was injected 20 seconds after the Lexiscan infusion. Blood pressure at the end of the recovery phase was 132/66 with a heart rate of 85 per minute. CONCLUSION: 1. No significant EKG changes with the LexiScan infusion 2. No LexiScan induced chest pain or cardiac arrhythmia 3. Normal blood pressure and heart rate response 4. Sestamibi/sestamibi perfusion scan pending; see separate report. Electronically Signed On 09-08-2019 13:29:47 CDT by Mike Crawford M.D. [id number]
--- NOTE | 2019-09-08 08:27 | SUR.PREOP ---
Patient reports no pain or discomfort prior to the start of the procedure.
[2019-09-08] MEDS: regadenoson 0.4 Mg/5 ml Syringe IVP (08:28)
[2019-09-08] MEDS: pantoprazole DR 40 mg Tablet PO (09:53)
[2019-09-08] MEDS: apixaban 5 mg Tablet PO ×2 (09:54→19:35)
[2019-09-08] MEDS: levothyroxine 50 mcg Tablet PO (09:54)
[2019-09-08] MEDS: citalopram 20 mg Tablet PO (09:54)
[2019-09-08] MEDS: amlodipine 10 mg Tablet PO (09:54)
[2019-09-08] MEDS: acetaminophen 325 mg Tablet 650 MG PO (10:00)
[2019-09-08] MEDS: metoprolol tartrate 25 mg Tablet 12.5 MG PO (10:27)
--- NOTE | 2019-09-08 10:45 | PC.CHAP ---
Pastoral Care Encounter/Spiritual Assessment Type of Contact [] Declined timber estimator visit [] Patient/Family/Request visit [] Outpatient visit [] Follow-up visit [] Physician referral [] Code/Alert [x] Routine visit [] Staff referral [] Actively dying [] Patient sleeping [] Family support [] [] Out of room [] Palliative care [] [] Receiving care in room [] Pre-surgical visit [] Trauma [] Long length of stay [] ICU visit [] Other: Relational/Emotional Strength [x] Patient feels connected with others/family/visitors/staff [] Distress [] Loneliness/isolation [] Abandonment Spirituality of Patient [x] Person of Judith [x] Attends Temple of their Judith [x] Believes in Prayer [x] Reads Bible or Mandaen materials [] There are Spiritual issues to be addressed Steam Flattener Interventions [x] Prayer [x] Active listening [x] Non-anxious presence [x] Spiritual/emotional support [] Crisis/trauma care [] Spiritual counseling [] Bereavement support [] Provided bereavement packet [] Provided Bible/devotional materials [] Provided toy/stuffed animal, coloring book to patient or family member [] Provided Communion [] Anointing/[place] [] Salvation [x] Completed spiritual assessment [] Other: Impact on Illness or Injury [] Angry [] Fearful [] Anxious [] Often cries [] Exhaustion [] Unable to work [] Unable to attend jain [] Unable to walk/stand [] Unable to read [] Unable to drive [] Unable to eat/drink [] Unable to sleep [] Unable to be with family [] Patient intubated [x] Other: Pt is mother of 3, grandmother of 7 and great-grandmother of 10 who recently had knee replacement but states that she gets around with few limitations. Summary Pt is great-grandmother who loves having whole family around her almost daily. Pt has a daughter who is an RN who brought pt to hospital due to fluctuating heart rate. Pt is very thankful she did as she might have had a stroke or heart attack per pt's statement. Pt loves talking about her family, especially her great-grandkids. Pt stated she was feeling quite well and hopes to go home soon. Most of the family live in the [facility] and look after each other. Steam Flattenerbeatriz telles Time spent with patient 22 minutes
[2019-09-08] MEDS: HYDROcodone-acetaminophen 5-325 mg Tablet 1 TAB PO (14:03)
--- NOTE | 2019-09-08 14:28 | PM.PN ---
Subjective Subjective: Interval history: Ernestina reports she had some chest discomfort last night. She reports she had some just comfort after her stress test when she got up to move around. She reported slight dizziness as well. History and physical reviewed. Medications: Reviewed: Yes Vitals/I&O/Wt Last Vital Signs Temp 98.4 F 09/07/19 23:10 Pulse 72 09/08/19 10:38 Resp 16 09/08/19 10:38 BP 129/81 09/08/19 11:26 Pulse Ox 71 L 09/08/19 11:26 09/07/19 09/08/19 09/08/19 22:59 06:59 14:59 Intake Total 1000 / 1000 480 / 1480 240 / 240 Balance 1000 / 1000 480 / 1480 240 / 240 Weight last 48 hrs Weight 90.718 kg Physical Exam Narrative: EXAM NARRATIVE: General exam no apparent distress Cardiovascular regular rate and rhythm without murmur Lungs clear Abdomen is soft, positive bowel sounds Extremities no cyanosis clubbing or edema Data : 09/08/19 05:12 09/08/19 05:12 A&P Assessment and plan (1) Unstable angina: Some exertional component with the discomfort. From her history I do not believe all of her episodes have been associated with SVT. Nuclear imaging demonstrating no reversible ischemia. However, CTA demonstrating three-vessel disease. Previous angiogram demonstrated some luminal irregularities, and possible chronically occluded PDA in 2017. Continue statin Continue apixaban Aspirin added Beta-stefanie added Status: Acute Code(s): I20.0 - Unstable angina (2) SVT (supraventricular tachycardia): I have added metoprolol 12.5 mg twice daily. As of yet we have not seen any recurrent SVT here in the hospital. Status: Acute Code(s): I47.1 - Supraventricular tachycardia Additional A&P Information Past history of pulmonary embolism. She is currently on Eliquis History of COPD Hypertension, controlled Full code She is on Eliquis which will suffice for DVT prophylaxis Attestations Medical Necessity Statement*: Needs continued hospital stay until cardiac evaluation secondary to recurrent chest discomfort, following stress testing. Coding Level of Care Code Acute Cellophane Bag Machine Operator for Yeny Rockwell Diagnoses Unstable angina I20.0 SVT (supraventricular tachycardia) I47.1
[2019-09-08] MEDS: aspirin 81 mg EC Tablet PO (14:48)
--- NOTE | 2019-09-08 18:09 | P.CONIM_ITS ---
Providers/Reason For Consult Consulting Physican/Specialty*: YAIR Crawford MD/cardiology Reason for Consult*: Patient with history of coronary artery disease, presenting with chest pain and unremarkable myocardial perfusion imaging Attending Physician: Derrek Renteria MD Primary Care Provider: Marcus Rodriguez History of Present Illness History of Present Illness Ernestina Davidson is a 68 year old female with a history of coronary artery disease and high blood pressure, is admitted to the hospital through the emergency room where she presented with complaints of episodes of chest tightness/squeezing sensation. Patient had total right knee arthroplasty in August of this year at this hospital. Postoperatively she developed her multiple pulmonary emboli for which she was placed on anticoagulation. She has been recuperating at home fairly well. She did not have any other complications. For the last 2 weeks, she has been having episodes of tight feeling in the chest which is described as a squeezing sensation. She may have an associated shortness of breath. Usually last for a few minutes and then goes away by itself. Her daughter who is a nurse noticed that her heart rate goes into the 1 40-1 60 range during the spells. She has been having these episodes almost every day. Yesterday, the episode lasted for more than an hour or so.. For that reason, she decided to come to the hospital. She may have had some shortness of breath. No nausea vomiting. No sweating, dizziness or syncopal episodes. She never had similar episodes in the past. Patient has a history of hypertension for the last many years. She also is known to have dyslipidemia. In May 2017, she had a cardiac catheterization by Dr. Hand. 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 Mild diffuse disease was noted in the other vessels. Based on the angiogram findings, it was opted to treat her medically. She has not had any significant chest pain since then. Patient had a myocardial perfusion imaging today. She was found to no evidence of ischemia with the perfusion scan. She had some chest discomfort during the Lexiscan infusion. Currently at the time of my examination, patient is pain- free. Review of Systems Narrative: CONSTITUTIONAL: No fever or chills. EYES: No blurring of vision or other visual disturbances lately. ENT: No hoarseness of voice, auditory disturbances or sore throat. CARDIOVASCULAR: As mentioned above. RESPIRATORY: No significant cough. GASTROINTESTINAL: No hematemesis or melena. GENITOURINARY: No dysuria or hematuria. INTEGUMENTARY: No skin rashes or history of skin cancer. NEURO: No transient ischemic attacks or amaurosis. PSYCHIATRIC: No history of psychosis or major depression. HEMATOLOGIC: No bleeding disorders or significant anemia. ENDOCRINE: No history of polyuria or polydipsia. MUSCULOSKELETAL: Total right knee arthroplasty as mentioned above. ALLERGY/IMMUNOLOGY: As mentioned above. Meds/Allergies Home Medications and Allergies Home Medications Medication Instructions Recorded Confirmed Type citalopram 20 mg tablet 20 mg PO DAILY 07/31/19 09/07/19 History levothyroxine 50 mcg capsule 50 mcg PO DAILY 07/31/19 09/07/19 History pantoprazole 40 mg tablet,delayed 40 mg PO DAILY 07/31/19 09/07/19 History release tizanidine 2 mg capsule 2 mg PO BID PRN 07/31/19 09/07/19 History famotidine [Pepcid] 20 mg PO DAILY 08/12/19 09/07/19 History Allergies Allergy/AdvReac Type Severity Reaction Status Date / Time No Known Allergies Allergy Verified 08/27/19 14:20 Current Medications Current Medications Generic Name Dose Route Start Last Admin Trade Name Freq PRN Reason Stop Dose Admin Acetaminophen 650 mg 09/07/19 20:42 09/08/19 10:00 Tylenol PO 650 mg Q6H PRN Administration Mild/Mod Pain Or Temp >/= 101 Hydrocodone Bitart/Acetaminophen 1 tab 09/08/19 12:49 09/08/19 14:03 [place] 5-325 Mg PO 1 tab Q4H PRN Administration MODERATE PAIN Apixaban 5 mg 09/08/19 09:00 09/08/19 09:54 Eliquis PO 5 mg BID TALON Administration Aspirin 81 mg 09/08/19 14:35 09/08/19 14:48 Aspirin Ec PO 81 mg DAILY TALON Administration Atorvastatin Calcium 40 mg 09/07/19 21:05 09/07/19 22:17 Lipitor PO 40 mg BEDTIME TALON Administration Citalopram Hydrobromide 20 mg 09/08/19 09:00 09/08/19 09:54 Celexa PO 20 mg DAILY TALON Administration Levothyroxine Sodium 50 mcg 09/08/19 09:00 09/08/19 09:54 Synthroid PO 50 mcg DAILY TALON Administration Pantoprazole Sodium 40 mg 09/08/19 09:00 09/08/19 09:53 Protonix PO 40 mg DAILY TALON Administration PFSH Acute PFSH: Medical History (Updated 09/09/19 @ 11:59 by Derrek Renteria MD) Arthritis of knee, right Arthritis of left knee Atherosclerotic heart disease of [place] coronary artery with other forms of angina pectoris Nuclear stress test negative for ischemia., No wall motion abnormalities Atrial flutter with rapid ventricular response On anticoagulation. Paroxysmal atrial flutter versus SVT. Currently being suppressed with metoprolol. Benign essential hypertension with target blood pressure below 140/90 Controlled COPD (chronic obstructive pulmonary disease) -Patient has known COPD secondary to extensive secondhand smoke exposure, was not oxygen dependent at baseline until most recent admission for R knee arthroplasty, had home oxygen evaluation done prior to d/c and qualified for 2 L NC which she is no longer requiring at home -no evidence of acute exacerbation -Monitor respiratory status; stable -supplemental oxygen as needed; none needed GERD (gastroesophageal reflux disease) -continue PPI -Had EGD done in 2017 showing moderate hiatal hernia and mild esophageal ring Hypertension -continue oral antihypertensives, blood pressure is currently controlled Pulmonary embolism in 2005; provoked following R knee surgery Treated with Coumadin x 3 months Surgical History H/O tubal ligation History of tonsillectomy S/P total knee arthroplasty -had total R knee arthroplasty secondary to severe degenerative OA; done by Dr. Garcia on 08/12/2019 -pain control as needed -working well with therapy; fall precautions; ambulatory with walker -knee incision is well approximated, anahi in place, no edema/erythema/hematoma Family History Sister Lung disease has 2 sisters with COPD secondary to chronic smoking Other Cancer Social History Smoking and tobacco status: never smoked Second hand smoke exposure: Yes (extensive) Alcohol intake: never Vitals/I&O/Wt Last Vital Signs Temp 98.4 F 09/07/19 23:10 Pulse 72 09/08/19 10:38 Resp 16 09/08/19 10:38 BP 129/81 09/08/19 11:26 Pulse Ox 71 L 09/08/19 11:26 09/08/19 09/08/19 09/08/19 06:59 14:59 22:59 Intake Total 480 / 1480 240 / 240 Balance 480 / 1480 240 / 240 Weight last 48 hrs Weight 200 lb Physical Exam Narrative: EXAM NARRATIVE: GENERAL: The patient is alert and oriented times three. Not in any acute distress. HEENT: Minimal pallor. No icterus or lymphadenopathy. The pupils are reactant to light. Oral cavity: There are no mucous membrane lesions. Funduscopic examination: The fundus is not visualized NECK: Trachea appears to be central. No masses noted. No JVD or thyromegaly appreciated. No carotid bruit. RESPIRATORY: Chest is symmetrical. No intercostals muscle retraction or any accessory muscle activation. There is no chest wall tenderness. Breath sounds are heard bilaterally. No rales or rhonchi heard. No evidence of any consolidation. BREASTS: Deferred. HEART: The PMI could not be palpated. No other palpable precordial events. S1 and S2 are normal. No S3 or S4 heard. No pericardial rub or any click heard. ABDOMEN: No vessel pulsations or distention. No tenderness. No organomegaly appreciated. No abdominal bruit. Bowel sounds are normally heard. : Deferred. RECTAL: Deferred. LYMPHATIC: No lymphadenopathy noted in the neck or groin. EXTREMITIES: No edema or cyanosis. No clubbing. The pulses are symmetrical bilaterally. The radial, femoral, dorsalis pedis and the posterior tibial pulses are palpated and found to be in good volume and amplitude. The right knee has minimal swelling. The surgical incision is healed fairly well. MUSCULOSKELETAL: No acute joint deformities or any swelling SKIN: There are no significant scars or skin rash noted. NEUROPSYCHIATRIC: The patient is alert and oriented x3. Appears to be in a good mood. The higher functions are grossly within normal limits. No tremors or rigidity noted. Data Imaging^: MPI: My impression: The myocardial perfusion imaging from today revealed 1. Myocardial perfusion imaging revealing a small area of persistent decreased tracer uptake in the apical lateral wall region, suggestive of myocardial scarring versus attenuation artifact. 2. Normal LV ejection fraction of 81%. 3. LV wall motion analysis revealing mild hypokinesia of the LV apex. 4. Normal LV volume. Cardiac catheterization: My impression: Cardiac cath done on 05/31/2017 #1 Left main is normal #2 LAD has luminal irregularities #3 LCx is luminal irregularity which is nondominant vessel #4 RCA has luminal irregularity with possible chronically occluded PDA EKG^: EKG 1: My Interpretation: The EKG revealed normal sinus rhythm with sinus arrhythmia. No acute ST-T changes. EKG 2: My Interpretation: Supraventricular tachycardia, possibly atrial flutter with a rate of [address]-T changes. A&P Assessment and plan (1) Atherosclerotic heart disease of [place] coronary artery with other forms of angina pectoris: Patient chest pain, most likely related to the atrial arrhythmia. Apparently she has no chest symptoms without the tachycardia, as per the patient and her daughter. She has no evidence of any myocardial injury. Her myocardial perfusion imaging is unremarkable. Most likely the arrhythmia is unrelated to ischemia. It may be appropriate at this point to continue on the beta-stefanie. The dose of the medication may be gradually advanced. She will be closely monitored on telemetry. An echocardiogram would be helpful to evaluate the LV function and the chamber sizes. Status: Acute Code(s): I25.118 - Atherosclerotic heart disease of [place] coronary artery with other forms of angina pectoris (2) Atrial flutter with rapid ventricular response: Patient seems to be responding to the metoprolol. I may increase the dose of the metoprolol 25 mg p.o. twice daily and gradually advance the dose as tolerated. Status: Acute Code(s): I48.92 - Unspecified atrial flutter (3) Benign essential hypertension with target blood pressure below 140/90: Currently she is normotensive. Advised to continue on the current medications. Status: Acute Code(s): I10 - Essential (primary) hypertension (4) Pulmonary embolism: Patient is on oral anticoagulation. This may be continued. Status: Acute Qualifiers: Pulmonary embolism type: multiple subsegmental (without acute cor pulmonale) Qualified Code(s): I26.94 - Multiple subsegmental pulmonary emboli without acute cor pulmonale Code(s): I26.99 - Other pulmonary embolism without acute cor pulmonale Additional A&P Information Anemia, possibly from blood loss History of dyslipidemia Based on the patient's clinical progress and the results of the above, further recommendations will be made. Thank you for the opportunity to eval this patient and make these recommendations. Coding Level of Care Code Acute Buckle Strap Drum Operator for Chg Fwd Diagnoses Atherosclerotic heart disease of [place] coronary artery with other forms of angina pectoris I25.118 Atrial flutter with rapid ventricular response I48.92 Benign essential hypertension with target blood pressure below 140/90 I10 Pulmonary embolism I26.94 Pulmonary embolism type: multiple subsegmental (without acute cor pulmonale)
--- NOTE | 2019-09-08 20:42 | NMCV_ITS ---
NM sarah perf SPECT r/s* [id number] CountsErnestina Age: 68 Gender: F : 1950 Exam Date: 09/08/2019 20:42 Ordering Phys: Nguyen Souza MD Technologist: DARA Cool Exam Location: [facility] Indications: CHEST PAIN STRESS TEST Please see separate stress test report in [facility] for full findings IMAGE PROTOCOL Rest/Stress 1 Lexiscan Day Radiopharmaceutical Dose (mCi) Administration Site Administered by Rest: Tc-99m 10.9 IV DARA Ferguson Sestamibi Stress:Tc-99m 32.2 IV DARA Cool Sestamisiav Rest: 08-Sep-2019 60 Discovery 630 Stress: 08-Sep-2019 30 Discovery 630 0.4mg Lexiscan. Images obtained in supine and prone position. SPECT RESULTS Technical Quality: Excellent Raw Data Analysis: Normal Image Corrections: No attenuation or motion correction applied Summed Stress Score: 1 Summed Rest Score: 1 Summed Difference Score: 0 PERFUSION FINDINGS Slightly decreased tracer uptake was noted in the apical lateral region, with no significant reversibility. FUNCTIONAL RESULTS (calculated via Gated SPECT) Stress Image LV EF (%): 81 Stress EDV (mL):0 TID: 0.9 Stress ESV (mL):18 FUNCTIONAL FINDINGS: No wall motion analysis revealed mild hypokinesia of the LV apex. IMPRESSIONS 1. Myocardial perfusion imaging revealing a small area of persistent decreased tracer uptake in the apical lateral wall region, suggestive of myocardial scarring versus attenuation artifact. 2. Normal LV ejection fraction of 81%. 3. LV wall motion analysis revealing mild hypokinesia of the LV apex. 4. Normal LV volume. No significant coronary ischemia, based on the above findings Dr Mike Crawford MD FACC (Electronically Signed) Final Date: 08 September 2019 13:23 S
--- NOTE | 2019-09-08 21:02 | USCV_ITS ---
Ernestina Davidson Age: 68 Gender: F : 1950 Exam Date: 09/08/2019 18:50 Ordering Phys: Nguyen Souza MD Technologist: Meg Mcgee Exam Location: [facility] [place] Indication: ANGINA BP: 120 / 68 HR: 71 Rhythm: Sinus Technical Quality: Adequate MEASUREMENTS (Male / Female) Normal Values 2D ECHO LV Diastolic Diameter PLAX 4.6 cm 4.2 - 5.9 / 3.9 - 5.3 cm LV Systolic Diameter PLAX 3.0 cm LV Chamber Size 2.5 cm IVS Diastolic Thickness 1.2 cm 0.6 - 1.0 / 0.6 - 0.9 cm IVS Systolic Thickness 1.2 cm LVPW Diastolic Thickness 1.7 cm 0.6 - 1.0 / 0.6 - 0.9 cm LVPW Systolic Thickness 2.4 cm RV Chamber Size 2.3 cm LVOT Diameter 2.0 cm LV Ejection Fraction 2D Teich 64.5 % LV Ejection Fraction MOD 2C 68.7 % LV Ejection Fraction 2C AL 68.8 % LA Diameter 4.7 cm LA Width 3.7 cm LA Height 4.4 cm RA Width 3.5 cm RA Height 3.3 cm Aorta at Sinotubular Diameter 2.7 cm M-MODE LV Diastolic Diameter MM 5.7 cm 4.2 - 5.9 / 3.9 - 5.3 cm LV Systolic Diameter MM 3.6 cm LV Ejection Fraction MM Teich 65.3 % IVS Diastolic Thickness MM 0.7 cm 0.6 - 1.0 / 0.6 - 0.9 cm IVS Systolic Thickness MM 1.3 cm LVPW Diastolic Thickness MM 1.0 cm 0.6 - 1.0 / 0.6 - 0.9 cm LVPW Systolic Thickness MM 1.3 cm Aortic Annulus Diameter 3.3 cm LA Ao Ratio MM 1.4 MV E Point Septal Separation 0.8 cm DOPPLER AV Peak Velocity 155.0 cm/s LVOT Peak Velocity 90.0 cm/s AV Area Cont Eq vti 1.7 cm squared AV Area Cont Eq pk 1.8 cm squared MV Area PHT 4.3 cm squared Mitral E to A Ratio 0.9 MV E' Velocity 10.0 cm/s Mitral E to MV E' Ratio 9.8 Mitral E to LV E' Lateral Ratio 9.2 Mitral E to LV E' Septal Ratio 10.6 TR Peak Velocity 167.0 cm/s TR Peak Gradient 11.2 mmHg TV Peak E Velocity 56.0 cm/s Right Atrial Pressure 3.0 mmHg Pulmonary Artery Systolic Pressu 14.2 mmHg PV Peak Velocity 75.0 cm/s RV Acceleration Time 0.2 s RV Ejection Time 0.4 s RV AcT/ET 0.4 FINDINGS Left Ventricle Normal left ventricular size and systolic function, EF 58 %. No regional wall motion abnormalities. Grade I/IV diastolic dysfunction (abnormal relaxation filling pattern), normal to mildly elevated filling pressures. Right Ventricle Normal right ventricular size and systolic function. Right Atrium Normal right atrial size. Left Atrium Possibly of normal size Mitral Valve No gross abnormalities noted Aortic Valve Thickened aortic valve. Tricuspid Valve No gross abnormalities noted Pulmonic Valve Pulmonic valve not well visualized. Pericardium No pericardial effusion. Aorta Normal aortic annulus size. CONCLUSIONS Normal left ventricular size and systolic function, EF 58 %. No regional wall motion abnormalities. Grade I/IV diastolic dysfunction (abnormal relaxation filling pattern), normal to mildly elevated filling pressures. Thickened aortic valve. There is no pericardial effusion. There are no intracardiac masses. Technically difficult study because of the poor ultrasonic window. Dr Mike Crawford MD FACC (Electronically Signed) Final Date: 08 September 2019 23:18 S
[2019-09-08] MEDS: atorvastatin 40 mg Tablet PO (21:52)
--- NOTE | 2019-09-09 02:21 | PC.NURSE ---
Lying supine on bed with eyes closed. Respirations even and unlabored with no distress noted. Will monitor.
[2019-09-09 03:36] VITALS: BP 131/62; PULSE 74; RESP 14; TEMP 36.9; O2SAT 95
[2019-09-09 07:40] VITALS: BP 130/83; PULSE 77; RESP 18; TEMP 36.8; O2SAT 95
--- NOTE | 2019-09-09 07:55 | PC.NURSE ---
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
--- NOTE | 2019-09-09 07:56 | PC.NURSE ---
now monitor tech displaying NSR patient is not symptomatic Metoprolol IVP not given Sonal with instructions to give PO metoprolol am dose now
[2019-09-09] MEDS: metoprolol tartrate 25 mg Tablet PO (07:58)
[2019-09-09] MEDS: apixaban 5 mg Tablet PO (09:03)
[2019-09-09] MEDS: levothyroxine 50 mcg Tablet PO (09:03)
[2019-09-09] MEDS: citalopram 20 mg Tablet PO (09:03)
[2019-09-09] MEDS: pantoprazole DR 40 mg Tablet PO (09:03)
[2019-09-09] MEDS: aspirin 81 mg EC Tablet PO (09:03)
[2019-09-09] MEDS: amlodipine 5 mg Tablet PO (09:03)
[2019-09-09] MEDS: lanolin oint 7 gm 1 APPLIC TOPICAL (09:43)
--- NOTE | 2019-09-09 11:58 | P.DS_ITS ---
Discharge Providers Date of Admission: 09/08/19 18:51 Date of Discharge: September 09, 2019 Attending Provider at Admission: Nguyen Souza MD Attending Provider at Discharge: Derrek Renteria MD Primary Care Provider: Marcus Rodriguez Diagnoses at Discharge Discharge Diagnosis (1) Atherosclerotic heart disease of [place] coronary artery with other forms of angina pectoris: Status: Acute Problem details: Nuclear stress test negative for ischemia., No wall motion abnormalities (2) Atrial flutter with rapid ventricular response: Status: Acute Problem details: On anticoagulation. Paroxysmal atrial flutter versus SVT. Currently being suppressed with metoprolol. (3) Benign essential hypertension with target blood pressure below 140/90: Status: Acute Problem details: Controlled (4) Pulmonary embolism: Status: Acute Problem details: Continue Eliquis Qualifiers: Pulmonary embolism type: multiple subsegmental (without acute cor pulmonale) Qualified Code(s): I26.94 - Multiple subsegmental pulmonary emboli without acute cor pulmonale Reason for Visit Reason for Visit: Reason For Visit: CP Hospital Course Hospital Course: Ernestina is a 69-year-old white female who presented with epis odic chest discomfort, and palpitations. She was found to have SVT, versus atrial flutter at times. Troponin was negative. Nuclear stress test was performed which demonstrated no reversible ischemia. Echocardiogram demonstrated preserved EF, no wall motion abnormalities. Metoprolol was added, and increased during her hospital stay with suppression of many of her episodic atrial flutter versus SVT. Cardiology was consulted and agreed with current plan. By September 08 she was stable for discharge home. Physical Exam Narrative: EXAM NARRATIVE: General exam no apparent distress Cardiovascular regular rate and rhythm without murmur Lungs clear Abdomen is soft with positive bowel sounds Extremities no cyanosis clubbing or edema Discharge Data Data Completed and Pending: Completed Studies During Hospitalization Category Date Time Status CT angio chest PE protcl [id number] Stat Cat Scan 09/07/19 16:47 Completed Sestamibi Stress Test Request Routi ne Exams 09/08/19 06:00 Completed XR chest 1V david ble [id number] Stat Exams 09/07/19 16:46 Completed NM sarah perf SPECT r/s* [id number] Routin e Nuc Med 09/08/19 20:42 Completed CV echo complete* [id number] Routine Ultrasound 09/08/19 21:02 Completed Vitals: Last Vital Signs Temp 98.3 F 09/09/19 07:40 Pulse 77 09/09/19 07:40 Resp 18 09/09/19 07:40 BP 130/83 09/09/19 07:40 Pulse Ox 95 09/09/19 07:40 Discharge Plan Discharge Patient Disposition: Home, Self-Care Condition: Stable Prescriptions: New atorvastatin 40 mg Tablet 40 mg PO BEDTIME Qty: 30 RF: 0 amlodipine 5 mg Tablet 5 mg PO DAILY Qty: 30 RF: 0 metoprolol tartrate 37.5 mg tablet 37.5 mg PO BID Qty: 60 RF: 0 aspirin 81 mg Tablet,Delayed Release (Dr/Ec) 81 mg PO DAILY Qty: 30 RF: 0 Continued citalopram [Celexa] 20 mg tablet 20 mg PO DAILY RF: 0 pantoprazole [Protonix] 40 mg tablet,delayed release (DR/EC) 40 mg PO DAILY RF: 0 tizanidine 2 mg capsule 2 mg PO BID PRN (Reason: muscle relaxer) RF: 0 levothyroxine 50 mcg capsule 50 mcg PO DAILY RF: 0 Eliquis DVT-PE Treat 30D Start 5 mg (74 tabs) tablets,dose pack See Rx Instructions .ROUTE .COMPLEX Qty: 74 RF: 0 famotidine [Pepcid] 20 mg Tablet 20 mg PO DAILY RF: 0 Discontinued amlodipine [Norvasc] 10 mg tablet 10 mg PO DAILY RF: 0 celecoxib 200 mg capsule 200 mg PO BID RF: 0 Discharge Orders: Discharge Order (Routine); Ordered 09/09/19 Ordered By: Derrek Renteria Referrals: Marcus oRdriguez [Primary Care Provider] - 4-7 days Mike Crawford MD [Physician] - 2 weeks Discharge Diet: Cardiac Discharge Activity: Increase activity as tolerated Activity Restrictions/Additional Instructions: Take all medicine as prescribed Follow-up with cardiology 2 weeks CBC and BMP in 1 week Notify cardiology for any recurrent palpitations. Discharge Attestations Time Spent in Discharge Care*: greater than 30 min Status at Discharge: Cognitive status at discharge: cognitively intact , Behavioral status at discharge: cooperative , Quality Metrics Clinical Quality Measures During this hospital stay, did patient experience: None Coding Level of Care Code Acute Underwater Photographer for Yeny Fwcharlie Diagnoses Atherosclerotic heart disease of [place] coronary artery with other forms of angina pectoris I25.118 Atrial flutter with rapid ventricular response I48.92 Benign essential hypertension with target blood pressure below 140/90 I10 Pulmonary embolism I26.94 Pulmonary embolism type: multiple subsegmental (without acute cor pulmonale)
[2019-09-09 12:00] VITALS: BP 126/85; PULSE 71; RESP 18; TEMP 36.7; O2SAT 93
[2019-09-09 12:33] VITALS: BP 126/85; PULSE 71; RESP 18; TEMP 36.7; O2SAT 93
--- NOTE | 2019-09-09 12:48 | PC.NURSE ---
patient has jeffery no other events of rapid HR or chest pain at this time Patient has been up walking in [place] reports no issues
--- NOTE | 2019-09-09 13:51 | P.PN_ITS ---
Subjective Subjective: Interval history: Patient is feeling better. No significant chest pain. She had some brief episodes of atrial flutter/fibrillation on the monitor. Medications: Reviewed: Yes Vitals/I&O/Wt Last Vital Signs Temp 98.0 F 09/09/19 12:33 Pulse 71 09/09/19 12:33 Resp 18 09/09/19 12:33 BP 126/85 09/09/19 12:33 Pulse Ox 93 09/09/19 12:33 09/08/19 09/09/19 09/09/19 22:59 06:59 14:59 Intake Total 200 / 440 600 / 600 Balance 200 / 440 600 / 600 Weight last 48 hrs Weight 200 lb Physical Exam Narrative: EXAM NARRATIVE: GENERAL: The patient is alert and oriented times three. Not in any acute distress. HEENT: Minimal pallor. No icterus or lymphadenopathy. The pupils are reactant to light. Oral cavity: There are no mucous membrane lesions. NECK: Trachea appears to be central. No masses noted. No JVD or thyromegaly nyal reciated. No carotid bruit. RESPIRATORY: Chest is symmetrical. No intercostals muscle retraction or any accessory muscle activation. There is no chest wall tenderness. Breath sounds are heard bilaterally. No rales or rhonchi heard. No evidence of any consolidation. BREASTS: Deferred. HEART: The PMI could not be palpated. No other palpable precordial events. S1 and S2 are normal. No S3 or S4 heard. No pericardial rub or any click heard. ABDOMEN: No vessel pulsations or distention. No tenderness. No organomegaly appreciated. No abdominal bruit. Bowel sounds are normally heard. : Deferred. RECTAL: Deferred. LYMPHATIC: No lymphadenopathy noted in the neck or groin. EXTREMITIES: No edema or cyanosis. No clubbing. The pulses are symmetrical bilaterally. The radial, femoral, dorsalis pedis and the posterior tibial pulses are palpated and found to be in good volume and amplitude. The right knee has minimal swelling. The surgical incision is healed fairly well. MUSCULOSKELETAL: No acute joint deformities or any swelling SKIN: There are no significant scars or skin rash noted. NEUROPSYCHIATRIC: The patient is alert and oriented x3. Appears to be in a good mood. The higher functions are grossly within normal limits. No tremors or rigidity noted. Data : 09/08/19 05:12 09/08/19 05:12 A&P Assessment and plan (1) Atherosclerotic heart disease of [place] coronary artery with other forms of angina pectoris: Patient chest pain, most likely related to the atrial arrhythmia. Apparently she has no chest symptoms without the tachycardia, as per the patient and her daughter. She has no evidence of any myocardial injury. Her myocardial perfusion imaging is unremarkable. Most likely the arrhythmia is unrelated to ischemia. It may be appropriate at this point to continue on the beta-stefanie. The dose of the medication may be gradually advanced. Status: Acute Code(s): I25.118 - Atherosclerotic heart disease of [place] coronary artery with other forms of angina pectoris (2) Atrial flutter with rapid ventricular response: Patient seems to be responding to the metoprolol. I may increase the dose of the metoprolol 25 mg p.o. twice daily and gradually advance the dose as tolerated. Status: Acute Code(s): I48.92 - Unspecified atrial flutter (3) Benign essential hypertension with target blood pressure below 140/90: Currently the blood pressure slightly elevated. Continue to optimize the antihypertensive medications. Status: Acute Code(s): I10 - Essential (primary) hypertension (4) Pulmonary embolism: Patient is on oral anticoagulation. This may be continued. Status: Acute Qualifiers: Pulmonary embolism type: multiple subsegmental (without acute cor pulmon mikhail) Qualified Code(s): I26.94 - Multiple subsegmental pulmonary emboli without acute cor pulmonale Code(s): I26.99 - Other pulmonary embolism without acute cor pulmonale Additional A&P Information Anemia, possibly from blood loss History of dyslipidemia Based on the patient's clinical progress and the results of the above, further recommendations will be made. Thank you for the opportunity to eval this patient and make these recommendations. Attestations Medical Necessity Statement*: Possible discharge home today Coding Level of Care Code Acute Server Systems Administrator for Yeny Rockwell Diagnoses Atherosclerotic heart disease of [place] coronary artery with other forms of angina pectoris I25.118 Atrial flutter with rapid ventricular response I48.92 Benign essential hypertension with target blood pressure below 140/90 I10 Pulmonary embolism I26.94 Pulmonary embolism type: multiple subsegmental (without acute cor pulmonale)
== END 2019-09-09 13:05 | disposition home or self-care (01) | DRG 302 ==
LOC: ER 16:51 → CSU 20:12
PROVIDERS: Admitting Provider Internal Medicine; Emergency Provider Emergency Medicine; Family Provider Physician Assistant Medical; PCP Physician Assistant Medical; Visit Provider Internal Medicine
DX: I25.118 Atherosclerotic heart disease of native coronary artery with other forms of angina pectoris (principal); I26.94 Multiple subsegmental thrombotic pulmonary emboli without acute cor pulmonale; I48.92 Unspecified atrial flutter; I47.1 Supraventricular tachycardia; I10 Essential (primary) hypertension; E03.9 Hypothyroidism, unspecified; K21.9 Gastro-esophageal reflux disease without esophagitis; D64.9 Anemia, unspecified; E78.5 Hyperlipidemia, unspecified; Z79.83 Long term (current) use of bisphosphonates; Z79.890 Hormone replacement therapy
CPT/HCPCS: 12345; 36415; 71045; 71275; 78452; 80048; 80053; 80061; 83036; 83690; 83735; 84443; 84484; 85025; 85610; 85730; 93005; 93017; 93306; 99283; A9500; G0378; J2785; J3490; J7030; Q9967

== ENCOUNTER → 2019-10-27 12:09 | Outpatient (BNVA) | payer MEDICARE, SELFPAY | PROVIDERS: Family Provider Physician Assistant Medical; PCP Physician Assistant Medical; Visit Provider Specialist | DX: Z48.89 Encounter for other specified surgical aftercare (principal); Z96.651 Presence of right artificial knee joint | CPT/HCPCS: 73560; 73565 ==

== ENCOUNTER 2020-03-09 11:48 | Outpatient (CLI) | payer MEDICARE, SELFPAY ==
--- NOTE | 2020-03-09 | US_ITS ---
WS: [id number] ULTRASOUND-GUIDED LEFT BREAST BIOPSY CLINICAL INFORMATION: ABNORMAL MAMMOGRAM COMPARISON: None. FINDINGS: The procedure including risks, benefits, and complications were discussed with the patient who agreed to proceed. Using sterile technique patient was prepped and draped in the usual sterile fashion. Aft er 1% lidocaine utilizing real-time ultrasound guidance 5 14-gauge cores were obtained of the left br east lesion at the 2 o'clock position. Subsequently a titanium clip was placed in the biopsy cavity. No immediate complications. PATHOLOGY COMMENT The biopsy cores from the left breast show an atypical papillary proliferation with surrounding apocr ine metaplasia. It is difficult to rule out a sclerosing adenosis versus a low grade atypical papillary l esion based on histology. The cytology is mostly low-grade, additional ancillary studies have been performed at [facility] and [place] professional pathology services and the final diagnoses will be issued post ancillary studies. Just based on histology and preliminary diagnoses, excision of the lesion is suggested. US/[place] [id number] IMPRESSION: 1. Uncomplicated ultrasound-guided left breast biopsy. 2. The pathology demonstrates ATYPICAL PAPILLARY PROLIFERATION and SURGICAL RE SECTION IS RECOMMENDED. 3. Additional ancillary studies have been requested by pathology. Addendum irvin l be made when those are available. BI-RADS: Post Biopsy FOLLOW UP: Surgical Biopsy Recommended RECOMMEND BREAST SURGERY CONSULTATION FOR EXCISION
== END 2020-03-09 11:49 | disposition home or self-care (01) ==
PROVIDERS: PCP Physician Assistant Medical; Visit Provider Physician Assistant Medical
DX: R92.8 Other abnormal and inconclusive findings on diagnostic imaging of breast (principal); N62 Hypertrophy of breast
CPT/HCPCS: 19083; 88305

== ENCOUNTER → 2020-04-01 10:59 | Outpatient (BNVA) | payer MEDICARE, SELFPAY | PROVIDERS: PCP Physician Assistant Medical; Visit Provider Surgery | DX: R89.7 Abnormal histological findings in specimens from other organs, systems and tissues (principal) | CPT/HCPCS: 87635 ==

== ENCOUNTER → 2020-05-07 12:13 | Outpatient (BNVA) | payer MEDICARE, SELFPAY | PROVIDERS: PCP Physician Assistant Medical; Visit Provider Surgery | DX: Z11.59 Encounter for screening for other viral diseases (principal) | CPT/HCPCS: 87635 ==

== ENCOUNTER 2020-05-11 08:05 | Day surgery (SDC) | payer MEDICARE, SELFPAY ==
[2020-05-10 15:05] VITALS: BMI 37.6
[2020-05-11] VITALS (7 sets, daily range): BP systolic 114–191; BP diastolic 67–99; PULSE 61–95; RESP 12–20; TEMP 36.4–36.8; O2SAT 93–99
--- NOTE | 2020-05-11 08:40 | US_ITS ---
WS: [id number] LEFT BREAST NEEDLE LOCALIZATION. INDICATION: Left breast nodule TECHNIQUE: The procedure including risks, benefits, and complications were discussed with the patient who agreed to proceed. Using sterile technique patient was prepped and draped in usual sterile fashi on. After 1% lidocaine, using ultrasound guidance, a 7 cm Kopan's needle was advanced into the left b reast lesion at the 2:00 position 4 cm from the nipple. No immediate complications. Surgical specimen demonstrates gross total resection of the 2:00 lesion with intact localization wire US/[place] [id number] IMPRESSION: 1. Uncomplicated wire localization left breast lesion. 2. Surgical specimen demonstrates gross total resection of the 2:00 lesion wit h intact localization wire.
[2020-05-11] MEDS: sodium chloride 0.9% 1,000 ML 30 ML IV (09:27)
[2020-05-11 09:32] LABS: Hematocrit 41.9 % (37.0-47.0); Hemoglobin 13.1 g/dL (11.5-15.3); Mean Corpuscular HGB Conc 31.3 g/dL (30.0-36.0); Mean Corpuscular Hemoglobin 30.3 pg (28.0-34.0); Mean Corpuscular Volume 96.8 fL (81-99); Mean Platelet Volume 10.4 fL (7.4-10.4); Platelet Count 303 10^3/cmm (130-400); Red Blood Count 4.33 10^6/uL (4.1-5.3); Red Cell Distribution Width 12.8 % (12.1-15.1); White Blood Count 7.3 10^3/uL (4.0-10.0)
--- NOTE | 2020-05-11 09:36 | P.ANESASSM_ITS ---
Pre-Anesthetic Assessment Pre-Anesthetic Assessment: Height/Weight: Height 1.57 m Weight 93.44 kg Temp Pulse Resp BP Pulse Ox 97.5 F L 61 18 191/92 96 05/11/20 08:24 05/11/20 08:24 05/11/20 08:24 05/11/20 08:24 05/11/20 08:24 Preop Diagnosis: Abnormal mammogram Proposed Procedure: Operation Date: 05/11/20 09:50 Proposed Procedures p Breast Biopsy Needle Localization [id number] R89.7(Left) - William Richter MD Familial anesthetic complications: None Was Beta Diana taken within 24 hours: Yes Last intake: Intake Last Liquid Date 05/11/20 Last Liquid Time 21:00 Last Solid Date 05/11/20 Last Solid Time 19:30 Social: Social History: No alcohol and No tobacco Exam: Pre-Anes Outpt Exam: alert, oriented x 3, clear to auscultation bilaterally and regular rate & rhythm Airway: Cervical ROM: WNL MP: 2 Dentition: Other (no teeth) Pulmonary: Pulmonary: COPD (Second-hand smoker) and Sleep apnea (cpap) CV/HEM: Comments: hx a fluttter w/ RVR Negative stress test GI: GI: GERD Metabolic: Metabolic: Morbid obesity and Thyroid Anesthetic Plan: ASA status: 3 Anesthesia: General Risk of > 500 ml blood loss (7ml/kg in children): No Meds/Allergies Current Medications: Current Medications Generic Name Dose Route Start Last Admin Trade Name Freq PRN Reason Stop Dose Admin Sodium Chloride 1,000 mls @ 30 ml s/hr 05/11/20 08:00 05/11/20 09:27 Sodium Chloride 0.9% IV 05/12/20 07:59 30 mls/hr .Q24H TALON Administration PFSH Anesthesia PFSH: Medical History (Updated 03/26/20 @ 12:57 by William Richter MD) Arthritis of knee, right Arthritis of left knee Atherosclerotic heart disease of [place] coronary artery with other forms of ang amber pectoris Nuclear stress test negative for ischemia., No wall motion abnormalities done on 09/09/2019. Audiogram also was unremarkable Atrial flutter with rapid ventricular response Benign essential hypertension with target blood pressure below 140/90 Controlled COPD (chronic obstructive pulmonary disease) -Patient has known COPD secondary to extensive secondhand smoke exposure, was not oxygen dependent at baseline until most recent admission for R knee arthroplasty, had home oxygen evaluation done prior to d/c and qualified for 2 L NC which she is no longer requiring at home -no evidence of acute exacerbation -Monitor respiratory status; stable -supplemental oxygen as needed; none needed GERD (gastroesophageal reflux disease) -continue PPI -Had EGD done in 2018 showing moderate hiatal hernia and mild esophageal ring Hypertension -continue oral antihypertensives, blood pressure is currently controlled Pulmonary embolism in 2006; provoked following R knee surgery Treated with Coumadin x 3 months Surgical History H/O tubal ligation History of tonsillectomy S/P total knee arthroplasty -had total R knee arthroplasty secondary to severe degenerative OA; done by Dr. Garcia on 08/12/2019 -pain control as needed -working well with therapy; fall precautions; ambulatory with walker -knee incision is well approximated, anahi in place, no edema/erythema/hematoma Family History Sister Lung disease has 2 sisters with COPD secondary to chronic smoking Other Cancer Social History Smoking and tobacco status: never smoked Second hand smoke exposure: Yes (extensive) Alcohol intake: never Data Anesthesia CBC & Chem 7: 05/11/20 09:13 05/11/20 09:13 Other Labs: Laboratory Results - last 48 hr 05/11/20 09:13 WBC 7.3 RBC 4.33 Hgb 13.1 Hct 41.9 MCV 96.8 MCH 30.3 MCHC 31.3 RDW 12.8 Plt Count 303 MPV 10.4 Cardiac Studies: No Data to Display
[2020-05-11 09:45] LABS: INR 1.01 (0.8-1.2)
[2020-05-11 10:11] LABS: Absolute Eosinophils 0.1 10^3/cmm (0.0-0.7); Absolute Neutrophil 3.7 10^3/cmm (1.4-6.5); Absolute Segmented Neutrophil 3.6 10/cmm (1.6-7.1); Band Neutrophils Absolute 0.1 10^3/cmm (0.0-1.2); Eosinophils 2 %; Lymphocytes 41 %; Monocytes Absolute 0.4 10^3/cmm (0.1-0.6); Platelet Estimate Normal (Normal); Segmented Neutrophils 49 %; Total Cells Counted 100 (0-100)
--- NOTE | 2020-05-11 10:41 | US_ITS ---
WS: [id number] LEFT BREAST NEEDLE LOCALIZATION. INDICATION: Left breast nodule TECHNIQUE: The procedure including risks, benefits, and complications were discussed with the patient who agreed to proceed. Using sterile technique patient was prepped and draped in usual sterile fashi on. After 1% lidocaine, using ultrasound guidance, a 7 cm Kopan's needle was advanced into the left b reast lesion at the 2:00 position 4 cm from the nipple. No immediate complications. Surgical specimen demonstrates gross total resection of the 2:00 lesion with intact localization wire US/US breast surgical specimen IMPRESSION: 1. Uncomplicated wire localization left breast lesion. 2. Surgical specimen demonstrates gross total resection of the 2:00 lesion wit h intact localization wire.
--- NOTE | 2020-05-11 10:44 | W.PM.OPSFHP ---
Same Day Surgery H&P Indication for Procedure/HPI DATE OF PROCEDURE: May 11, 2020 CHIEF COMPLAINT/INDICATIONFOR SURGICAL PROCEDURE: Left breast sopt PREOP DIAGNOSIS: Abnormal mammogram PLANNED PROCEDRUE: Operation Date: 05/11/20 09:50 Proposed Procedures p Breast Biopsy Needle Localization [id number] R89.7(Left) - William Richter MD This is a pleasant 69 years old female patient referred to my office with history of recent screening mammogram and abnormalities were found and undergone biopsy that showed PATHOLOGY COMMENT The biopsy cores from the left breast show an atypical papillary proliferation with surrounding apocrine metaplasia. It is difficult to rule out a sclerosing adenosis versus a low grade atypical papillary lesion based on histology. The cytology is mostly low-grade, additional ancillary studies have been performed at [place] and [place] professional pathology services and the final diagnoses will be issued post ancillary studies. Just based on histology and preliminary diagnoses, excision of the lesion is suggested. US/[place] [id number] IMPRESSION: 1. Uncomplicated ultrasound-guided left breast biopsy. 2. The pathology demonstrates ATYPICAL PAPILLARY PROLIFERATION and SURGICAL RESECTION IS RECOMMENDED. 3. Additional ancillary studies have been requested by pathology. Addendum will be made when those are available. BI-RADS: Post Biopsy FOLLOW UP: Surgical Biopsy Recommended Previous breast biopsies not applicable Personal or family history of breast cancer not applicable Age of menarche 9 years of age History of menstrual cycles regular History of control pills total of 10 years Obstetric history A0 miscarriages 3 Breast-feeding history never Self breast examination not applicable She comes today escorted by her daughter and referred for further evaluation for potential surgical biopsy Interim history 05/11/2020 Patient comes today as she has been postponed before because she was tested positive for COVID-19 and undergone ultrasound-guided needle localization of the left breast abnormalities for surgical excision. Patient forgot to stop her Eliquis yesterday and I did discuss with her and the daughter about the potential risks benefits and she elected to proceed accordingly. Understanding the high risk of hematoma formation with abscess transformation potential I&D. Medications/Allergies* Home Medications Medication Instructions Recorded Confirmed Type citalopram 20 mg tablet 20 mg PO DAILY 07/31/19 05/11/20 History pantoprazole 40 mg tablet,delayed 40 mg PO DAILY 07/31/19 05/11/20 History release tizanidine 2 mg capsule 2 mg PO BID PRN 07/31/19 05/11/20 History famotidine [Pepcid] 20 mg PO DAILY 08/12/19 05/11/20 History levothyroxine 50 mcg capsule 75 mcg PO DAILY cap 09/25/19 05/11/20 History Allergies/Adverse Reactions Allergy/AdvReac Type Severity Reaction Status Date / Time No Known Allergies Allergy Verified 05/11/20 10:46 Current Medications: Generic Name Dose Route Start Last Admin Trade Name Freq PRN Reason Stop Dose Admin Sodium Chloride 1,000 mls @ 30 mls/hr 05/11/20 08:00 05/11/20 09:27 Sodium Chloride 0.9% IV 05/12/20 07:59 30 mls/hr .Q24H TALON Administration Pertinent History/Comorbid Conditions* Medical History (Updated 03/26/20 @ 12:57 by William Richter MD) Arthritis of knee, right Arthritis of left knee Atherosclerotic heart disease of [place] coronary artery with other forms of angina pectoris Nuclear stress test negative for ischemia., No wall motion abnormalities done on 09/09/2019. Audiogram also was unremarkable Atrial flutter with rapid ventricular response Benign essential hypertension with target blood pressure below 140/90 Controlled COPD (chronic obstructive pulmonary disease) -Patient has known COPD secondary to extensive secondhand smoke exposure, was not oxygen dependent at baseline until most recent admission for R knee arthroplasty, had home oxygen evaluation done prior to d/c and qualified for 2 L NC which she is no longer requiring at home -no evidence of acute exacerbation -Monitor respiratory status; stable -supplemental oxygen as needed; none needed GERD (gastroesophageal reflux disease) -continue PPI -Had EGD done in 2018 showing moderate hiatal hernia and mild esophageal ring Hypertension -continue oral antihypertensives, blood pressure is currently controlled Pulmonary embolism in 2006; provoked following R knee surgery Treated with Coumadin x 3 months Surgical History (Updated 08/25/19 @ 00:00 by ) H/O tubal ligation History of tonsillectomy S/P total knee arthroplasty -had total R knee arthroplasty secondary to severe degenerative OA; done by Dr. Garcia on 08/12/2019 -pain control as needed -working well with therapy; fall precautions; ambulatory with walker -knee incision is well approximated, anahi in place, no edema/erythema/hematoma Family History (Updated 08/13/19 @ 14:41 by Ayanna Hilton MD) Lung disease Sister has 2 sisters with COPD secondary to chronic smoking Cancer Social History Smoking and tobacco status: never smoked Second hand smoke exposure: Yes (extensive) Alcohol intake: never Pertinent Exam Findings alert, oriented x 3, clear to auscultation bilaterally and operative site marked Recommendations Surgery/Procedure today (Excision of needle localized mass of the left breast) Coding Level of Care Code Acute Director Of Patient Financial Services for Yeny Rockwell
[2020-05-11] MEDS: lidocaine 2% INJ 20 mL INJECTION (11:54)
--- NOTE | 2020-05-11 12:28 | PM.OP ---
Operative Report Date of procedure: May 11, 2020 Pre-op Diagnosis: Abnormal mammogram Post-op Diagnosis: Left breast mass Procedure Done: Left partial mastectomy with needle localization Implants: Medium size clips Specimens removed/disposition: Left partial mastectomy oriented with short sutures superior Long wire lateral and short wire medial Surgeon: William Richter Desktop Support Associate: Surgical assistants Dagoberto Kim and operating room surgical technologist student Ramonita Anesthesia: General (LMA filter tank tender helper head Soraya) Estimated blood loss (mL): 5 Condition: stable Disposition: same day Brief History: This is a pleasant 69 years old female patient was seen and evaluated at my office for abnormal mammographic images and pathology showed: atypical papillary proliferation with surrounding apocrine metaplasia. It is difficult to rule out a sclerosing adenosis versus a low grade atypical papillary lesion based on histology. The cytology is mostly low-grade, additional ancillary studies have been performed at [place] and [place] professional pathology services and the final diagnoses will be issued post ancillary studies. Just based on histology and preliminary diagnoses, excision of the lesion is suggested. Patient was counseled there after to obtain a biopsy under needle localization and informed consent per chart. Procedure: After patient undergone a needle localization at Radiology Department under ultrasound guidance. After identifying the patient holding area, the left breast was marked before the procedure by myself, patient was then taken to the operative suite, was placed in supine position, intubated by anesthesia, prophylactic IV antibiotics were given per protocol,left arm was placed in 90? to her body, I was able to take down the tape and dressing on top of the wire without jeopardizing it ,prep and drape of the left pectoralis region was done under the usual sterile technique. Time-out was done verifying the patient's name/date of /planned procedure and destination after the procedure, all were in agreement. After identifying the direction of the wire on the ultrasound and further discussing the case preoperatively with Dr. Wise. I did perform a transverse incision at the site of entrance of the needle used for the localization , dissection was carried on using electrocautery and energy device in the form of handheld Voyant. The localization wire was grasped and pulled into the incision and dissection continued towards the tip of the wire. The breast tissue containing sonographic abnormality was grasped with Allis forceps and using electrocautery the specimen was dissected free from the surrounding tissue.A good margin of normal breast tissue surrounding the mass , and and the specimen was taken out and passed to the circulating nurse to send for sonographic evaluation and pathology. Specimen was oriented with short suture superior and long wire marked lateral and short wire marked medial Later we got the clearance from radiology department that the sonographic abnormality was all included in the specimen, and I did confirm that after seeing the images with Dr. Wise. After left partial mastectomy, multiple medium size clips marked the wound bed for future reference. Thorough irrigation of the cavity was done and hemostasis, followed by deep closure by 2-0 Vicryl, followed by 3-0 Vicryl then 4-0 Monocryl for skin closure. Lidocaine 2% was injected at the site of the incision, followed by Mastisol and Steri-Strips. Pressure dressing was applied followed by fluffs and a sports bra Patient tolerated the procedure well, count of instruments, needles and sponges were completed at the end of the procedure. And then patient was taken to the recovery area in stable condition. I was present for the whole entire procedure
[2020-05-11 14:18] LABS: Alanine Aminotransferase 15 U/L (0-33); Albumin Level 3.9 g/dL (3.5-5.2); Alkaline Phosphatase 100 IU/L (35-105); Anion Gap 13.4 (5-19); Aspartate Amino Transferase 18 U/L (0-32); Blood Urea Nitrogen 14 mg/dL (8-23); Calcium 9.2 mg/dL (8.5-10.5); Carbon Dioxide 27 mmol/L (22-29); Chloride 102 mmol/L (98-107); Creatinine Clr Calc Pharmacy 68.6653; Glucose 101 mg/dL (65-115); Osmolality Calculated 287 mOsm/kg (285-295); Potassium 4.4 mmol/L (3.5-5.1); Sodium 138 mmol/L (136-145); Total Bilirubin 0.3 mg/dL (0.15-1.2); Total Protein 6.9 g/dL (6.6-8.7)
--- NOTE | 2020-05-11 17:33 | ANE.PACU2 ---
Inpatient post-anesthesia follow up: Airway intact: Yes Vital signs: Temperature 98.1 F Pulse Rate 79 Respiratory Rate 20 Blood Pressure 129/67 Pulse Oximetry 95 Oxygen Delivery Me thod Room Air Oxygen Flow Rate 6 Fraction of Inspir ed Oxygen Hydration adequate: Yes Nausea and vomiting: No Pain level: 1 Mental status: Baseline
== END 2020-05-11 14:21 | disposition home or self-care (01) ==
PROVIDERS: PCP Physician Assistant Medical; Visit Provider Surgery
PROC: (CPT 19301; principal; 2020-05-11 09:50)
DX: R92.8 Other abnormal and inconclusive findings on diagnostic imaging of breast (principal); J44.9 Chronic obstructive pulmonary disease, unspecified; K21.9 Gastro-esophageal reflux disease without esophagitis; E66.01 Morbid (severe) obesity due to excess calories; Z68.37 Body mass index [BMI] 37.0-37.9, adult; I10 Essential (primary) hypertension; I25.10 Atherosclerotic heart disease of native coronary artery without angina pectoris
CPT/HCPCS: 19301; 12345; 19285; 36415; 80053; 85007; 85027; 85610; 86850; 86900; 88305; J0131; J0690; J2250; J2405; J2704; J3010; J7030

== ENCOUNTER → 2020-10-28 11:01 | Outpatient (BNVA) | payer MEDICARE, SELFPAY | PROVIDERS: PCP Physician Assistant Medical; Visit Provider Surgery | DX: Z20.822 Contact with and (suspected) exposure to COVID-19 (principal); L98.9 Disorder of the skin and subcutaneous tissue, unspecified | CPT/HCPCS: 87635 ==

== ENCOUNTER 2020-11-02 05:53 | Day surgery (SDC) | payer MEDICARE, SELFPAY ==
[2020-11-01 13:11] VITALS: BMI 39.3
[2020-11-02 06:33] VITALS: BP 165/88; PULSE 63; RESP 18; TEMP 37.4; O2SAT 94
--- NOTE | 2020-11-02 06:38 | W.PM.OPSUD ---
Surgery/Procedure H&P Update DATE OF PROCEDURE: November 02, 2020 DATE H&P PERFORMED: 10/20/20 H&P UPDATE INFORMATION: I have reviewed H&P completed within last 30 days, I have examined patient prior to procedure and No changes to prior documentation CHANGES TO PREVIOUS DOCUMENTATION: Patient had a shave biopsy by her primary care provider and showed squamous cell carcinoma, patient today as well as her daughter agree on the spot that has been shaved and we will proceed by local excision with appropriate margin. PREOP DIAGNOSIS: Presternal skin cancer PRIMARY INDICATION FOR PROCEDURE: The same PLANNED PROCEDURE: Operation Date: 11/02/20 07:15 Proposed Procedures p EXCISION OF PRESTERNAL SKIN CANCER 33273 l98.9(Not Applicable) - William Richter MD
[2020-11-02] MEDS: sodium chloride 0.9% 1,000 ML 30 ML IV (06:46)
[2020-11-02] MEDS: lidocaine 2% INJ 20 mL INJECTION (07:10)
--- NOTE | 2020-11-02 07:17 | ANES.PREANE2 ---
Pre-Anesthetic Assessment Pre-Anesthetic Assessment: Height/Weight: Height 1.57 m Weight 97.522 kg Temp Pulse Resp BP Pulse Ox 99.4 F 63 18 165/88 94 11/02/20 06:33 11/02/20 06:33 11/02/20 06:33 11/02/20 06:33 11/02/20 06:33 Preop Diagnosis: Presternal skin cancer Proposed Procedure: Operation Date: 11/02/20 07:15 Proposed Procedures p EXCISION OF PRESTERNAL SKIN CANCER 34423 l98.9(Not Applicable) - William Richter MD Was Beta Diana taken within 24 hours: Yes Was Clonidine taken within 24 hours: N/A Last intake: Intake Last Liquid Date 11/01/20 Last Liquid Time 20:00 Last Solid Date 11/01/20 Last Solid Time 18:30 Social: Social History: No alcohol and No tobacco Exam: Pre-Anes Outpt Exam: alert, oriented x 3, clear to auscultation bilaterally and regular rate & rhythm Airway: Submandibular: WNL Cervical ROM: WNL MP: 2 Dentition: False CV/HEM: CV/HEM: Arrythmia (a.flutter), DVT (PE) and HTN GI: GI: GERD Metabolic: Metabolic: Morbid obesity and Thyroid Anesthetic Plan: ASA status: 3 Anesthesia: Choice Risk of > 500 ml blood loss (7ml/kg in children): No Meds/Allergies Current Medications: Current Medications Generic Name Dose Route Start Last Admin Trade Name Freq PRN Reason Stop Dose Admin Sodium Chloride 1,000 mls @ 30 ml s/hr 11/02/20 06:15 11/02/20 06:46 Sodium Chloride 0.9% IV 11/03/20 06:14 30 mls/hr .Q24H TALON Administration PFSH Anesthesia PFSH: Medical History Arthritis of knee, right Arthritis of left knee Atherosclerotic heart disease of [place] coronary artery with other forms of angina pectoris Nuclear stress test negative for ischemia., No wall motion abnormalities done on 09/09/2019. Audiogram also was unremarkable Atrial flutter with rapid ventricular response Benign essential hypertension with target blood pressure below 140/90 Controlled COPD (chronic obstructive pulmonary disease) -Patient has known COPD secondary to extensive secondhand smoke exposure, was not oxygen dependent at baseline until most recent admission for R knee arthroplasty, had home oxygen evaluation done prior to d/c and qualified for 2 L NC which she is no longer requiring at home -no evidence of acute exacerbation -Monitor respiratory status; stable -supplemental oxygen as needed; none needed GERD (gastroesophageal reflux disease) -continue PPI -Had EGD done in 2018 showing moderate hiatal hernia and mild esophageal ring Hypertension -continue oral antihypertensives, blood pressure is currently controlled Pulmonary embolism in 2006; provoked following R knee surgery Treated with Coumadin x 3 months Skin cancer Surgical History H/O tubal ligation History of tonsillectomy S/P total knee arthroplasty -had total R knee arthroplasty secondary to severe degenerative OA; done by Dr. Garcia on 08/12/2019 -pain control as needed -working well with therapy; fall precautions; ambulatory with walker -knee incision is well approximated, anahi in place, no edema/erythema/hematoma Family History Sister Lung disease has 2 sisters with COPD secondary to chronic smoking Other Cancer Social History Smoking and tobacco status: never smoked Second hand smoke exposure: Yes (extensive) Alcohol intake: never Data Anesthesia Cardiac Studies: No Data to Display
--- NOTE | 2020-11-02 07:48 | P.OP_ITS ---
Operative Report Date of procedure: November 02, 2020 Pre-op Diagnosis: Presternal skin cancer Post-op diagnosis: same Post-op Findings: 0.5 x 0.5 biopsy site status post shaving biopsy that showed squamous cell carcinoma Procedure Done: Excision of presternal skin cancer with appropriate safety margin Specimens removed/disposition: Presternal skin cancer with short sutures superior Surgeon: William Richter Aircraft Landing Gear Inspector: submarine cable equipment technician [place] and medical student Yana Mullen Circulating nurse Karol Mak Anesthesia: MAC (assistant hall director Soraya) Complications: No immediate complication Condition: stable Disposition: same day Brief History: Presternal skin cancer. Full H&P and informed consent per chart. Procedure: After identifying the patient holding area, the correct site and side was marked before the procedure by myself with approval of patient and her daughter of the site of the previuos shave biopsy, patient was then taken to the operative suite, was placed in in supine position, anesthesia was administered by the anesthesia provider in the form of IV propofol,Time-out was done verifying the patient's name/date of /planned procedure and destination after the procedure, all were in agreement, preoperative antibiotics administered per protocol, and beta stefanie protocol was confirmed Prep and drape of the upper chest and lower neck region was done under the usual sterile technique. Local anesthesia 2% lidocaine was infiltrated site of the incision, elliptical skin incision was done including the normal skin and presternal skin,incision was done all the way down to the subcutaneous tissues dissection was then carried on with appropriate safety margin, the specimen was oriented by 3-0 nylon sutures marking superior. Thorough irrigation followed by hemostasis was achieved, by 3-0 Vicryl then skin closure by 4-0 Monocryl, followed by Mastisol and Steri-Strip and pressure dressing. Specimen was passed to the circulating nurse for permanent pathology Count was completed at the end of the procedure Patient was taken to the recovery room in stable condition I was present for the whole entire procedure.
[2020-11-02 07:51] VITALS: BP 115/72; PULSE 62; RESP 12; TEMP 36.2; O2SAT 93
[2020-11-02 07:55] VITALS: BP 129/68; PULSE 62; RESP 17; O2SAT 94
[2020-11-02 08:00] VITALS: BP 112/61; PULSE 62; RESP 16; TEMP 36.5; O2SAT 93
[2020-11-02 08:10] VITALS: BP 114/67; PULSE 62; RESP 18; O2SAT 94
[2020-11-02 08:21] VITALS: BP 121/74; PULSE 60; RESP 18; O2SAT 93
--- NOTE | 2020-11-02 14:59 | ANE.PACU2 ---
Inpatient post-anesthesia follow up: Airway intact: Yes Vital signs: Temperature 97.7 F Pulse Rate 60 Respiratory Rate 18 Blood Pressure 121/74 Pulse Oximetry 93 Oxygen Delivery Me thod Room Air Oxygen Flow Rate Fraction of Inspir ed Oxygen Hydration adequate: Yes Nausea and vomiting: No Pain level: 1 Mental status: Baseline
== END 2020-11-02 08:53 | disposition home or self-care (01) ==
PROVIDERS: PCP Physician Assistant Medical; Visit Provider Surgery
PROC: (CPT 11106; principal; 2020-11-02 07:15)
DX: C44.90 Unspecified malignant neoplasm of skin, unspecified (principal); Z79.82 Long term (current) use of aspirin; J44.9 Chronic obstructive pulmonary disease, unspecified; K21.9 Gastro-esophageal reflux disease without esophagitis; I10 Essential (primary) hypertension
CPT/HCPCS: 11106; 88304; J0690; J2250; J2704; J3010; J7030

== ENCOUNTER 2020-12-24 04:18 | Inpatient (IN) | payer MEDICARE, SELFPAY ==
[2020-12-24 04:21] VITALS: BP 165/78; PULSE 76; RESP 20; TEMP 36.7; O2SAT 94; BMI 37.3
--- NOTE | 2020-12-24 04:25 | XRR_ITS ---
PROCEDURE INFORMATION: Exam: XR Chest Exam date and time: 12/24/2020 4:25 AM Age: 70 years old Clinical indication: Shortness of breath; Patient HX: Hypoxia. Hypertensive. ; Additional info: Weakness TECHNIQUE: Imaging protocol: XR of the chest. Views: 1 view. COMPARISON: CR XR knees AP WB w RT lmt ORTH 10/27/2019 12:15 PM FINDINGS: Lungs: Minor left lower lung atelectasis or scarring. Pleural spaces: Unremarkable. No pleural effusion. No pneumothorax. Heart/Mediastinum: Unremarkable. No cardiomegaly. Vasculature: Tortuous calcified thoracic aorta. Bones/joints: Degenerative change of the spine. Other findings: Interstitial crowding. XR/XR chest 1V portable [id number] IMPRESSION: Minor left lower lung atelectasis or scarring.
--- NOTE | 2020-12-24 04:25 | CTR_ITS ---
PROCEDURE INFORMATION: Exam: CT Head Without Contrast Exam date and time: 12/24/2020 4:25 AM Age: 70 years old Clinical indication: Dizziness and walking, difficulty; Patient HX: Worsening vertigo symptoms. Hypertensive. TECHNIQUE: Imaging protocol: Computed tomography of the head without contrast. Radiation optimization: All CT scans at this facility use at least one of these dose optimization techniques: automated exposure control; mA and/or kV adjustment per patient size (includes targeted exams where dose is matched to clinical indication); or iterative reconstruction. Other technique: STROKE PROTOCOL was implemented. COMPARISON: CR XR knees AP WB w RT lmt ORTH 10/27/2019 12:15 PM RADIATION DOSE METRICS: Total DLP (mGy-cm): 2013.05 FINDINGS: Brain: No acute intracranial hemorrhage. Prominent vascular space or small chronic lacunar infarction medial right basal ganglia or anterior limb of internal capsule. Dural or other extra-axial calcification left middle cranial fossa. Cerebral ventricles: No ventriculomegaly. Paranasal sinuses: Visualized sinuses are unremarkable. No fluid levels. Mastoid air cells: Visualized mastoid air cells are well aerated. Vasculature: Tortuous vertebrobasilar arteries. Ectasia of basilar artery. Calcification cavernous carotid arteries. Bones/joints: Unremarkable. No acute fracture. Soft tissues: Unremarkable. Other findings: Hemispheric volume loss. Overlapping streak artifact. CT/CT head wo con* [id number] IMPRESSION: No acute intracranial process. ASSESSMENT: ASPECTS ([place] Stroke Program Early CT Score) is 10. Radiation Dose CTDIVOL = (mGy): DLP = 2013.05 (mGy-cm)
--- NOTE | 2020-12-24 04:27 | W.ED.NEUROSD ---
HPI - Neuro Symptoms/Deficit General: Chief Complaint: Dizziness Stated Complaint: VERTIGO Time Seen by Provider: 12/24/20 04:20 Source: patient and EMS Mode of arrival: EMS Limitations: no limitations History of Present Illness: HPI Narrative: 70-year-old female who states she started having severe vertigo this afternoon around 2-3. She states that anytime she tried to walk or even at rest she had severe vertigo as well. She states that the room is continually spinning she is having difficulty ambulating. She is seen at another facility this afternoon had a normal work-up. She is prescribed meclizine and Ativan and she states that she has not gotten any better. States this evening she has had severe nausea and folic she is going to pass out. Associated symptoms: Reports vertigo; Deny chest pain, nausea or vomiting Review of Systems Const: Denies: fever(s), chills, body aches or change in appetite Eyes: Denies: blurry vision or eye discomfort ENMT: Denies: throat pain or dental pain Card: Denies: chest pain Resp: Denies: dyspnea GI: Denies: abdominal pain, nausea, vomiting or diarrhea : Denies: dysuria Musc: Denies: neck pain or back pain Skin/Breast: Denies: rash Neuro: Reports: weakness in extremities, difficulty walking and vertigo Psych: Denies: depression Judah/Lymph: Denies: easy bruising All/Imm: Denies: urticaria PFS ED PFSH: Medical History (Updated 12/24/20 @ 05:54 by Nguyen Souza MD) Arthritis of knee, right Arthritis of left knee Atherosclerotic heart disease of [place] coronary artery with other forms of angina pectoris Atrial flutter with rapid ventricular response Benign essential hypertension with target blood pressure below 140/90 Controlled COPD (chronic obstructive pulmonary disease) GERD (gastroesophageal reflux disease) Hypertension Pulmonary embolism in 2006; provoked following R knee surgery Treated with Coumadin x 3 months Skin cancer Surgical History H/O tubal ligation History of tonsillectomy S/P total knee arthroplasty -had total R knee arthroplasty secondary to severe degenerative OA; done by Dr. Garcia on 08/12/2019 -pain control as needed -working well with therapy; fall precautions; ambulatory with walker -knee incision is well approximated, anahi in place, no edema/erythema/hematoma Family History Sister Lung disease has 2 sisters with COPD secondary to chronic smoking Other Cancer Social History Smoking and tobacco status: never smoked Second hand smoke exposure: Yes (extensive) Alcohol intake: never NIH stroke score NIHSS: Level Of Consciousness - 1a: 0 Level Of Consciousness Questions - 1b: Both Correct Level Of Consciousness Commands - 1c: Both Correct Best Gaze - 2: Normal Visual Ash - 3: No Visual Loss Facial Palsy - 4: Normal Motor Arm Right - 5: No Drift Motor Arm Left - 5: No Drift Motor Leg Right - 6: No Drift Motor Leg Left - 6: No Drift Limb Ataxia - 7: Present In Two Limbs Sensory - 8: Normal Best Language - 9: No Aphasia Dysarthia - 10: Normal Extinction And Inattention - 11: 0 Score: Total Score: 2 Physical Exam Const: COMMON NORMALS: no acute distress, patient oriented x3 and healthy appearing HENMT: COMMON NORMALS: normocephalic and atraumatic HEAD & SCALP: normocephalic and atraumatic Eye: COMMON NORMALS: Equal, round and reactive pupils present and EOMs intact bilaterally PUPIL: Yes Equal, round and reactive pupils present Neck/C-Spine: COMMON NORMALS: full ROM and supple Chest: COMMONS NORMALS: normal inspection of the chest and normal palpation of entire chest wall Resp: COMMON NORMALS: normal respiratory effort, No retractions, No use of accessory muscles and clear to auscultation bilaterally AUSCULTATION: clear to auscultation bilaterally Cardio: COMMON NORMALS: regular rate, regular rhythm and No murmurs present (Cardio) RATE: regular rate RHYTHM: regular rhythm GI: COMMON NORMALS: Normal to inspection, nondistended, normoactive bowel sounds present, Soft to palpation, non-tender and no masses PALPATION: Yes Soft to palpation Extremity: COMMON NORMALS: normal to inspection and full ROM Neuro: COMMON NORMALS: patient oriented x3 and moves all extremities OTHER: Moderate ataxia when trying to walk Psych: COMMON NORMALS: mental status grossly normal, Normal thought process present and cooperative THOUGHT PROCESS: Normal thought process present Skin: COMMON NORMALS: no rashes or lesions noted and no wounds GENERAL SKIN EXAM: no rashes or lesions noted Course Vital Signs: Vital signs: Vital Signs Temperature 98.1 F 12/24/20 04:21 Pulse Rate 76 12/24/20 04:21 Respiratory Rate 20 H 12/24/20 04:21 Blood Pressure 165/78 12/24/20 04:21 Pulse Oximetry 94 12/24/20 04:21 MDM - Neuro Symptoms/Deficit MDM Narrative: Medical decision making narrative: Patient presents with vertigo and ataxia is likely a peripheral cause for her vertigo. She has some slight nystagmus as well that is horizontal. Patient's blood pressure here has been normal she was hypertensive at home. Patient CT scan shows no acute findings. She is not a TPA candidate as her symptoms started roughly 13 to 14 hours ago. Patient still having difficulty walking and ataxia and severe nausea and will admit for observation. Lab Data: Labs: Lab Results 12/24/20 12/24/20 Range/Units 05:20 05:20 WBC 11.4 H (4.0-10.0) 10^3/ uL RBC 4.83 (4.1-5.3) 10^6/u L Hgb 14.8 (11.5-15.3) g/dL Hct 45.6 (37.0-47.0) % MCV 94.4 (81-99) fL MCH 30.6 (28.0-34.0) pg MCHC 32.5 (30.0-36.0) g/dL RDW 12.5 (12.1-15.1) % Plt Count 273 (130-400) 10^3/c mm MPV 10.8 H (7.4-10.4) fL Neut % (Auto) 87.2 % Lymph % (Auto) 9.2 % [place] % (Auto) 2.7 % Eos % (Auto) 0.0 % Baso % (Auto) 0.3 % Neut # (Auto) 9.92 H (1.8-7.7) 10^3/u L Lymph # (Auto) 1.1 (0.8-4.8) 10^3/u L [place] # (Auto) 0.3 (0.2-0.9) 10^3/u L Eos # (Auto) 0.0 (0.0-0.8) 10^3/u L Baso # (Auto) 0.0 (0.0-0.1) 10^3/u L Nucleated RBC % (a uto) 0 % Nucleated RBCs # 0.0 /100WBC Sodium 134 L (136-145) mmol/L Potassium 4.2 (3.5-5.1) mmol/L Chloride 99 (98-107) mmol/L Carbon Dioxide 26 (22-29) mmol/L Anion Gap 13.2 (5-19) BUN 13 (8-23) mg/dL Creatinine 0.6 (0.5-0.9) mg/dL GFR Calculation Not Reportable Glucose 139 H (65-115) mg/dL Calculated Osmolal ity 280 L (285-295) mOsm/k g Calcium 9.0 (8.5-10.5) mg/dL Total Bilirubin 0.5 (0.15-1.2) mg/dL AST 17 (0-32) U/L ALT 14 (0-33) U/L Alkaline Phosphata se 95 (35-105) IU/L Total Protein 7.0 (6.6-8.7) g/dL Albumin 4.2 (3.5-5.2) g/dL Globulin 2.8 (1.3-4.6) g/dL Imaging Data^: CXR: Attestation: I personally reviewed and interpreted this imaging study as follows: My impression: no acute abnormality CT Head: Radiologist's impression: no acute abnormality EKG Data^: EKG 1: Attestation: I personally reviewed and interpreted this EKG as follows: EKG interpretation date: 12/24/20 EKG interpretation time: 05:16 Interpretation: nsr hr [address] or t wave abnormalities qrs 92 qtc 440 Discharge Plan Discharge Patient Disposition: Placed in Observation Admit Provider: Nguyen Souza Clinical Impression: Vertigo Hypertension Qualifiers: Hypertension type: unspecified Qualified Code(s): I10 - Essential (primary) hypertension Coding Level of Care Code ED Medical Record Transcriber for g Fwd Exam Comprehensive
[2020-12-24 05:28] LABS: Basophils % 0.3 %; Hematocrit 45.6 % (37.0-47.0); Hemoglobin 14.8 g/dL (11.5-15.3); Lymphocytes # 1.1 10^3/uL (0.8-4.8); Lymphocytes % 9.2 %; Mean Corpuscular HGB Conc 32.5 g/dL (30.0-36.0); Mean Corpuscular Hemoglobin 30.6 pg (28.0-34.0); Mean Corpuscular Volume 94.4 fL (81-99); Mean Platelet Volume 10.8 fL (7.4-10.4); Monocytes # 0.3 10^3/uL (0.2-0.9); Monocytes % 2.7 %; Neutrophils # 9.92 10^3/uL (1.8-7.7); Neutrophils % 87.2 %; Nucleated Red Blood Cells % 0 %; Platelet Count 273 10^3/cmm (130-400); Red Blood Count 4.83 10^6/uL (4.1-5.3); Red Cell Distribution Width 12.5 % (12.1-15.1); White Blood Count 11.4 10^3/uL (4.0-10.0)
[2020-12-24 05:43] LABS: Alanine Aminotransferase 14 U/L (0-33); Albumin Level 4.2 g/dL (3.5-5.2); Alkaline Phosphatase 95 IU/L (35-105); Anion Gap 13.2 (5-19); Aspartate Amino Transferase 17 U/L (0-32); Blood Urea Nitrogen 13 mg/dL (8-23); Carbon Dioxide 26 mmol/L (22-29); Chloride 99 mmol/L (98-107); Globulin 2.8 g/dL (1.3-4.6); Glucose 139 mg/dL (65-115); Osmolality Calculated 280 mOsm/kg (285-295); Potassium 4.2 mmol/L (3.5-5.1); Sodium 134 mmol/L (136-145); Total Bilirubin 0.5 mg/dL (0.15-1.2)
--- NOTE | 2020-12-24 05:52 | PM.HP ---
Providers/Chief Complaint Primary Care Provider: Marcus Rodriguez Chief Complaint: VERTIGO History of Present Illness Ernestina Davidson is a 70 year old female who was brought in by her daughter because of worsening dizziness. Patient is describing her dizziness as room is spinning. Her symptoms started a week ago that has gotten worse 24 hours before her arrival in the ER, around 2-3 PM yesterday she called her daughter when she could not get up from her bed. When her daughter arrived she did not notice any strokelike symptoms however Ms. davidson were struggling with finding appropriate words to articulate, no slurred speech was noted by her daughter. No recent fever, runny nose, runny eyes, ringing sensation in her ears, diarrhea. Patient stated that she experience chest pain but not able to give me details. She vomited 7-8 times today. At home blood pressure 230/110 mmHg, she was seen in the [facility] as well where she was treated as vertigo, CT head unremarkable. Her symptoms resolved to some extent after resolution of hypertensive urgency. At the time of my evaluation blood pressure 167/78 mmHg, patient was sleeping when I entered the room, could not give me detailed history. Most of the information has been taken from her daughter. NIH 0, I did not notice any strokelike symptoms, she is able to move all of her extremities, gait was not tested, horizontal nystagmus, BPPV+, CT head unremarkable She has been taking Eliquis since her DVT which she developed after knee surgery July 2019. No recent falls. Review of Systems Const: Denies: fever(s), chills or body aches Eyes: Denies: change in vision ENMT: Denies: throat pain Card: Reports: chest pain Resp: Denies: dyspnea GI: Reports: nausea and vomiting; Denies: abdominal pain : Denies: flank pain Musc: Denies: muscle cramps Skin/Breast: Denies: rash Neuro: Reports: headache(s), difficulty walking, dizziness and vertigo Psych: Denies: anxiety Endo: Denies: polyuria Judah/Lymph: Denies: easy bruising All/Imm: Denies: urticaria Medications/Allergies Home Medications Medication Instructions Recorded Confirmed Last Taken Type citalopram 20 mg tablet 20 mg PO DAILY 07/31/19 11/13/20 11/01/20 History pantoprazole 40 mg tablet,delayed 40 mg PO DAILY 07/31/19 11/13/20 11/01/20 History release tizanidine 2 mg capsule 2 mg PO BID PRN 07/31/19 11/13/20 11/01/20 History famotidine [Pepcid] 20 mg PO DAILY 08/12/19 11/13/20 11/01/20 History Eliquis DVT-PE Treat 30D Start See Rx Instructions .ROUTE 08/24/19 11/13/20 10/29/20 Rx .COMPLEX #74 each amlodipine 5 mg PO DAILY #30 tab 09/09/19 11/13/20 11/01/20 Rx aspirin 81 mg PO DAILY #30 tab 09/09/19 11/13/20 11/01/20 Rx atorvastatin 40 mg PO BEDTIME #30 tab 09/09/19 11/13/20 11/01/20 Rx metoprolol tartrate 37.5 mg PO BID #60 tab 09/09/19 11/13/20 11/01/20 20:00 Rx levothyroxine 50 mcg capsule 75 mcg PO DAILY cap 09/25/19 11/13/20 11/01/20 History Allergies Allergy/AdvReac Type Severity Reaction Status Date / Time No Known Allergies Allergy Verified 11/13/20 06:59 PFSH Acute PFSH: Medical History Arthritis of knee, right Arthritis of left knee Atherosclerotic heart disease of [place] coronary artery with other forms of angina pectoris Atrial flutter with rapid ventricular response Benign essential hypertension with target blood pressure below 140/90 Controlled COPD (chronic obstructive pulmonary disease) GERD (gastroesophageal reflux disease) Hypertension Pulmonary embolism in 2005; provoked following R knee surgery Treated with Coumadin x 3 months Skin cancer Surgical History H/O tubal ligation History of tonsillectomy S/P total knee arthroplasty -had total R knee arthroplasty secondary to severe degenerative OA; done by Dr. Garcia on 08/12/2019 -pain control as needed -working well with therapy; fall precautions; ambulatory with walker -knee incision is well approximated, anahi in place, no edema/erythema/hematoma Family History Sister Lung disease has 2 sisters with COPD secondary to chronic smoking Other Cancer Social History Smoking and tobacco status: never smoked Second hand smoke exposure: Yes (extensive) Alcohol intake: never Vitals/I&O/Wt Last Vital Signs Temp 98.1 F 12/24/20 04:21 Pulse 76 12/24/20 04:21 Resp 20 H 12/24/20 04:21 BP 165/78 12/24/20 04:21 Pulse Ox 94 12/24/20 04:21 Weight last 48 hrs Weight 95.708 kg Physical Exam Narrative: EXAM NARRATIVE: elderly female who was sleeping at the time when I entered the room Patient woke up when I turned on the light NIH score 0, no slurring of speech gait was not tested Horizontal nystagmus positive, patient reluctant to move her head because of extreme vertigo S1, S2 sinus rhythm no signs of heart failure No extremity no edema gangrene ulcer Abdomen soft nontender bowel sound present Bilateral breath sounds no adventitious rhonchi or crackles No neurological deficits, she is awake and alert oriented x3 GCS 15 No cellulitis or joint swelling Data : 12/24/20 05:20 12/24/20 05:20 A&P Assessment and plan (1) Vertigo: Status: Acute (2) Hypertension: Status: Acute Qualifiers: Hypertension type: unspecified Qualified Code(s): I10 - Essential (primary) hypertension Additional A&P Information BPPV Requested PT evaluation I will give her cetirizine meclizine and a dose of steroid for possible vestibular neuritis Daughter is endorsing that her mother was struggling with appropriate word finding which resolved aspirin as blood pressure improved, concerning TIA symptoms she is already on aspirin, atorvastatin along Eliquis I would be reluctant to add Plavix at this point, CT head unremarkable, systolic blood pressure 160s mmhg, I do not think MRI brain will have any merit at this point in time Her last Eliquis dose was yesterday morning CT head unremarkable, showing vascular lacunar infarct She has grade 1 diastolic dysfunction but seems compensated Patient complained about chest pain however she described chest pain as pain in her breast she does have history of breast mass which was biopsied, 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 fib Attestations Medical Necessity Statement*: Anticipating discharge within 48 hours need PT evaluation for vertigo, she has extreme ataxia not able to walk, experienced 7 episodes of vomiting Time Spent in Patient Care: 30mins Coding Level of Care Code Acute Bridge Construction Inspector for Yeny Rockwell Diagnoses Vertigo R42 Hypertension I10 Hypertension type: unspecified
[2020-12-24 08:20] VITALS: BP 128/68; PULSE 76; RESP 19; O2SAT 94
--- NOTE | 2020-12-24 11:11 | PC.CHAP ---
Pastoral Care Encounter/Spiritual Assessment Type of Contact [] Declined dairy inspector visit [] Patient/Family/Request visit [] Outpatient visit [] Follow-up visit [] Physician referral [] Code/Alert [] Routine visit [] Staff referral [] Actively dying [xx] Patient sleeping [] Family support [] [] Out of room [] Palliative care [] [] Receiving care in room [] Pre-surgical visit [] Trauma [] Long length of stay [] ICU visit [] Other: Relational/Emotional Strength [] Patient feels connected with others/family/visitors/staff [] Distress [] Loneliness/isolation [] Abandonment Spirituality of Patient [] Person of Judith [] Attends Zoroastrian of their Judith [] Believes in Prayer [] Reads Bible or Taoist materials [] There are Spiritual issues to be addressed Neurodiagnostic Technician Interventions [] Prayer [] Active listening [] Non-anxious presence [] Spiritual/emotional support [] Crisis/trauma care [] Spiritual counseling [] Bereavement support [] Provided bereavement packet [] Provided Bible/devotional materials [] Provided toy/stuffed animal, coloring book to patient or family member [] Provided Communion [] Anointing/Snyder [] Salvation [] Completed spiritual assessment [] Other: Impact on Illness or Injury [] Angry [] Fearful [] Anxious [] Often cries [] Exhaustion [] Unable to work [] Unable to attend yazdanism [] Unable to walk/stand [] Unable to read [] Unable to drive [] Unable to eat/drink [] Unable to sleep [] Unable to be with family [] Patient intubated [] Other: Summary Patient was asleep at beginning and end of visitation rounds. Follow up needed Time spent with patient 1 minute
--- NOTE | 2020-12-24 11:49 | PC.PHAR ---
PT DAUGHTER VICKY STATES SHE THINKS PT SHOULD BE TAKING AMLODIPINE 5 MG ONCE DAILY BUT PHARMACY HAS NOT FILLED IN A LONG TIME. [facility] IN [place], [place] HAS NOT FILLED SINCE 03/05/20.
[2020-12-24] MEDS: levothyroxine 75 mcg Tablet PO (12:04)
[2020-12-24] MEDS: meclizine 25 mg tablet 50 MG PO ×2 (12:04→18:12)
[2020-12-24] MEDS: amlodipine 5 mg Tablet PO (12:04)
[2020-12-24] MEDS: aspirin 81 mg EC Tablet PO (12:04)
[2020-12-24] MEDS: apixaban 5 mg Tablet PO ×2 (12:05→21:40)
[2020-12-24] MEDS: metoprolol tartrate 25 mg Tablet PO ×2 (12:05→18:12)
[2020-12-24] MEDS: pantoprazole DR 40 mg Tablet PO (12:05)
[2020-12-24] MEDS: cetirizine 10 mg Tablet PO (12:05)
--- NOTE | 2020-12-24 13:13 | PM.PN ---
Subjective Subjective: Interval history: Patient was seen and examined this morning,still complaining of spinning of head. Vitals/I&O/Wt Last Vital Signs Temp 98.1 F 12/24/20 04:21 Pulse 76 12/24/20 08:20 Resp 19 H 12/24/20 08:20 BP 128/68 12/24/20 08:20 Pulse Ox 94 12/24/20 08:20 12/23/20 12/24/20 12/24/20 22:59 06:59 14:59 Intake Total 480 / 480 Output Total 600 / 600 Balance -120 / -120 Weight last 48 hrs Weight 95.708 kg Physical Exam Const: COMMON NORMALS: patient oriented x3 HENMT: COMMON NORMALS: normocephalic and atraumatic HEAD & SCALP: normocephalic and atraumatic Resp: COMMON NORMALS: normal respiratory effort, No retractions, No use of accessory muscles and clear to auscultation bilaterally AUSCULTATION: clear to auscultation bilaterally Cardio: COMMON NORMALS: regular rate, regular rhythm, S1 normal heart sound present, S2 normal heart sound present, No gallops present (Cardio), No murmurs present (Cardio), No rub (Cardio) and Peripheral pulses 2+ throughout RATE: regular rate RHYTHM: regular rhythm HEART SOUNDS: S1 normal heart sound present and S2 normal heart sound present PERIPHERAL PULSES: Peripheral pulses 2+ throughout GI: COMMON NORMALS: Normal to inspection, nondistended, normoactive bowel sounds present, Soft to palpation, non-tender, No hepatosplenomegaly present and no masses AUSCULTATION: Yes normoactive bowel sounds PALPATION: Yes Soft to palpation and Yes No hepatosplenomegaly present RECTAL EXAM: deferred Extremity: COMMON NORMALS: no clubbing, cyanosis or edema and no pedal edema Neuro: COMMON NORMALS: patient oriented x3 Data : 12/24/20 05:20 12/24/20 05:20 A&P Assessment and plan (1) Vertigo: Status: Acute (2) Hypertension: Status: Acute Qualifiers: Hypertension type: unspecified Qualified Code(s): I10 - Essential (primary) hypertension Additional A&P Information BPPV: Positive Jennifer hallpike test: s/p Edward maneuver PT on board On cetirizine meclizine. S/P Steroid dose for pssible vestibular neuritis Daughter is endorsing that her mother was struggling with appropriate word finding which resolved aspirin as blood pressure improved, concerning TIA symptoms she is already on aspirin, atorvastatin along Eliquis I would be reluctant to add Plavix at this point, CT head unremarkable, systolic blood pressure 160s mmhg, I do not think MRI brain will have any merit at this point in time Her last Eliquis dose was yesterday morning CT head unremarkable, showing vascular lacunar infarct She has grade 1 diastolic dysfunction but seems compensated Patient complained about chest pain however she described chest pain as pain in her breast she does have history of breast mass which was biopsied, 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 fib Attestations Medical Necessity Statement*: Patient needs to be in hospital for the management of symptomatic vertigo as well as uncontrolled HTN. Coding Level of Care Code Acute Courseware Developer for g Fwd Exam Detailed Diagnoses Vertigo R42 Hypertension I10 Hypertension type: unspecified
[2020-12-24 14:27] VITALS: BP 148/65; PULSE 67; RESP 16; TEMP 36.4; O2SAT 98
[2020-12-24 18:00] VITALS: BP 133/78; PULSE 65; RESP 16; TEMP 37; O2SAT 91
[2020-12-24 21:35] VITALS: BP 118/73; PULSE 73; RESP 18; TEMP 36.9; O2SAT 93
[2020-12-24] MEDS: atorvastatin 40 mg Tablet PO (21:40)
[2020-12-25] VITALS (9 sets, daily range): BP systolic 129–169; BP diastolic 71–90; PULSE 53–63; RESP 14–18; TEMP 36.7–37.1; O2SAT 93–96
--- NOTE | 2020-12-25 04:14 | PC.NURSE ---
SHIFT NOTE patient rested in bed this shift, during assessment patient verbalized dizziness resolving, dizziness occurs with position changes but does not last very long, verbalized safety precautions she is taking, encouraged to have staff ambulate with patient
[2020-12-25] MEDS: levothyroxine 75 mcg Tablet PO (07:48)
[2020-12-25] MEDS: meclizine 25 mg tablet 50 MG PO ×2 (07:48→17:47)
[2020-12-25] MEDS: apixaban 5 mg Tablet PO ×2 (07:48→21:38)
[2020-12-25] MEDS: pantoprazole DR 40 mg Tablet PO (07:48)
[2020-12-25] MEDS: metoprolol tartrate 25 mg Tablet PO ×2 (07:48→17:47)
[2020-12-25] MEDS: aspirin 81 mg EC Tablet PO (07:48)
[2020-12-25] MEDS: amlodipine 5 mg Tablet PO ×2 (07:49→18:41)
--- NOTE | 2020-12-25 19:33 | P.PN_ITS ---
Subjective Subjective: Interval history: Patient was seen and examined this morning,still complaining of spinning of head. Vitals/I&O/Wt Last Vital Signs Temp 98.1 F 12/25/20 15:59 Pulse 56 L 12/25/20 15:59 Resp 14 12/25/20 15:59 BP 154/83 12/25/20 15:59 Pulse Ox 96 12/25/20 15:59 12/25/20 12/25/20 12/25/20 06:59 14:59 22:59 Intake Total 360 / 360 240 / 600 Output Total 150 / 150 Balance 360 / 360 90 / 450 Weight last 48 hrs Weight 95.708 kg Physical Exam Const: COMMON NORMALS: patient oriented x3 HENMT: COMMON NORMALS: normocephalic and atraumatic HEAD & SCALP: normocephalic and atraumatic Resp: COMMON NORMALS: normal respiratory effort, No retractions, No use of accessory muscles and clear to auscultation bilaterally AUSCULTATION: clear to auscultation bilaterally Cardio: COMMON NORMALS: regular rate, regular rhythm, S1 normal heart sound present, S2 normal heart sound present, No gallops present (Cardio), No murmurs present (Cardio), No rub (Cardio) and Peripheral pulses 2+ throughout RATE: regular rate RHYTHM: regular rhythm HEART SOUNDS: S1 normal heart sound present and S2 normal heart sound present PERIPHERAL PULSES: Peripheral pulses 2+ throughout GI: COMMON NORMALS: Normal to inspection, nondistended, normoactive bowel sounds present, Soft to palpation, non-tender, No hepatosplenomegaly present and no masses AUSCULTATION: Yes normoactive bowel sounds PALPATION: Yes Soft to palpation and Yes No hepatosplenomegaly present RECTAL EXAM: deferred Extremity: COMMON NORMALS: no clubbing, cyanosis or edema and no pedal edema Neuro: COMMON NORMALS: patient oriented x3 Data : 12/24/20 05:20 12/24/20 05:20 A&P Assessment and plan (1) Vertigo: Status: Acute (2) Hypertension: Status: Acute Qualifiers: Hypertension type: unspecified Qualified Code(s): I10 - Essential (primary) hypertension Additional A&P Information BPPV: Positive [place] hallpike test: s/p Edward maneuver PT on board On cetirizine meclizine. S/P Steroid dose for pssible vestibular neuritis Daughter is endorsing that her mother was struggling with appropriate word finding which resolved aspirin as blood pressure improved, concerning TIA symptoms she is already on aspirin, atorvastatin along Eliquis I would be reluctant to add Plavix at this point, CT head unremarkable, systolic blood pressure 160s mmhg, I do not think MRI brain will have any merit at this point in time Her last Eliquis dose was yesterday morning CT head unremarkable, showing vascular lacunar infarct She has grade 1 diastolic dysfunction but seems compensated Repeat ECHO Carotid Doppler Patient complained about chest pain however she described chest pain as pain in her breast she does have history of breast mass which was biopsied, 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 fib Attestations Medical Necessity Statement*: Patient needs to be in hospital for the management of severe symptomatic vertigo. Coding Level of Care Code Acute Set O Type Operator for Yeny [facility] Diagnoses Vertigo R42 Hypertension I10 Hypertension type: unspecified
[2020-12-25] MEDS: atorvastatin 40 mg Tablet PO (21:38)
[2020-12-26] VITALS (10 sets, daily range): BP systolic 110–174; BP diastolic 67–97; PULSE 55–80; RESP 16–20; TEMP 36.6–36.9; O2SAT 92–96
[2020-12-26] MEDS: amlodipine 10 mg Tablet PO (09:52)
[2020-12-26] MEDS: aspirin 81 mg EC Tablet PO (09:56)
[2020-12-26] MEDS: apixaban 5 mg Tablet PO ×2 (09:56→21:17)
[2020-12-26] MEDS: levothyroxine 75 mcg Tablet PO (09:57)
[2020-12-26] MEDS: meclizine 25 mg tablet 50 MG PO ×2 (09:58→18:50)
[2020-12-26] MEDS: pantoprazole DR 40 mg Tablet PO (09:59)
--- NOTE | 2020-12-26 18:27 | USCV_ITS ---
Ernestina Davidson Age: 70 Gender: F : 1950 Exam Date: 12/26/2020 12:55 Ordering Phys: Ken Valdes MD Technologist: Lana Rowe Exam Location: [facility] [place] Indication: Dizziness BP: 130 / 67 HR: 64 Rhythm: Sinus Technical Quality: Fair MEASUREMENTS (Male / Female) Normal Values 2D ECHO LV Diastolic Diameter PLAX 3.4 cm 4.2 - 5.9 / 3.9 - 5.3 cm LV Systolic Diameter PLAX 1.6 cm LV Chamber Size 4.1 cm IVS Diastolic Thickness 1.4 cm 0.6 - 1.0 / 0.6 - 0.9 cm IVS Systolic Thickness 2.1 cm LVPW Diastolic Thickness 1.3 cm 0.6 - 1.0 / 0.6 - 0.9 cm LVPW Systolic Thickness 1.5 cm RV Chamber Size 1.9 cm LVOT Diameter 2.1 cm LV Ejection Fraction 2D Teich 84.3 % LV Ejection Fraction MOD 2C 67.2 % LV Ejection Fraction 2C AL 72.8 % LA Diameter 2.8 cm LA Width 2.3 cm LA Height 5.0 cm RA Width 2.9 cm RA Height 4.0 cm Aorta at Sinotubular Diameter 2.3 cm M-MODE LV Diastolic Diameter MM 4.7 cm 4.2 - 5.9 / 3.9 - 5.3 cm LV Systolic Diameter MM 2.8 cm LV Ejection Fraction MM Teich 71.2 % IVS Diastolic Thickness MM 1.2 cm 0.6 - 1.0 / 0.6 - 0.9 cm IVS Systolic Thickness MM 1.7 cm LVPW Diastolic Thickness MM 1.2 cm 0.6 - 1.0 / 0.6 - 0.9 cm LVPW Systolic Thickness MM 1.9 cm RV Diastolic Diameter MM 0.9 cm Aortic Annulus Diameter 3.0 cm LA Ao Ratio MM 1.1 DOPPLER AV Peak Velocity 140.0 cm/s LVOT Peak Velocity 131.0 cm/s AV Area Cont Eq vti 2.9 cm squared AV Area Cont Eq pk 3.1 cm squared MV Area PHT 2.8 cm squared Mitral E to A Ratio 0.6 MV E' Velocity 36.0 cm/s Mitral E to MV E' Ratio 10.7 Mitral E to LV E' Lateral Ratio 10.5 Mitral E to LV E' Septal Ratio 11.1 TV Peak E Velocity 58.0 cm/s Right Atrial Pressure 3.0 mmHg PV Peak Velocity 71.0 cm/s RV Acceleration Time 0.1 s RV Ejection Time 0.3 s RV AcT/ET 0.4 FINDINGS Left Ventricle Normal left ventricular size and systolic function, EF 70 %. Mild left ventricular hypertrophy. No regional wall motion abnormalities. Right Ventricle The right ventricle is normal in size and function. Right Atrium The right atrium is normal in size. Left Atrium Mildly increased left atrial size. Mitral Valve Mild mitral annular calcification. Aortic Valve Thickened aortic valve. Tricuspid Valve No gross abnormalities noted Pulmonic Valve Pulmonic valve not well visualized. Pericardium Normal pericardium without effusion. Aorta Normal ascending aorta dimension. CONCLUSIONS Normal left ventricular size and systolic function, EF 70 %. Mild left ventricular hypertrophy. No regional wall motion abnormalities. Type I diastolic dysfunction. Mildly increased left atrial size. Mild mitral annular calcification. Thickened aortic valve. There is no pericardial effusion. There are no intracardiac masses. Compared to the study from 09/08/2019, there may not be a significant change Dr Mike Crawford MD [facility] (Electronically Signed) Final Date: 26 December 2020 13:50 S
--- NOTE | 2020-12-26 18:35 | USCV_ITS ---
Ernestina Davidson Age: 70 Gender: F : 1950 Exam Date: 12/26/2020 11:41 Ordering Phys: Ken Valdes MD Technologist: Lana Rowe [place] [facility] [place]: Persistent vertigo Risk Factors: Unknown Previous Vascular Surgery: None Right Brachial BP: / Left Brachial BP: / Right Left Velocity (cm/s) Spectral Plaque Velocity (cm/s) Spectral Plaque Syst/Diast Broadening Syst/Diast Broadening 50.70/ 13.20 Prox CCA 52.70 / 11.10 70.60/ 13.20 Mid CCA 54.00 / 13.20 63.90/ 15.40 Hetro Distal CCA 49.70 / 14.00 Hetro 46.10/ 10.30 Hetro Prox ICA 41.20 / 11.70 63.20/ 18.80 Mid ICA 42.70 / 14.80 76.90/ 20.50 Distal ICA 67.60 / 17.60 84.80 ECA 63.70 1.52 ICA/CCA 1.28 Antegrade Vertebral Antegrade 37.50/ 10.50 cm/s 35.50/ 9.90 cm/s Tri Subclavian Bi 62.40 92.00 FINDINGS Comparison: none available. See measurements listed above. Mild to moderate heterogeneous plaques of the bifurcations bilaterally. Intimal thickening in the common carotid arteries bilaterally. CONCLUSIONS Mild to moderate heterogeneous plaques of the bifurcations bilaterally, suggesting less than 50% stenosis. Intimal thickening in the common carotid arteries bilaterally. No previous studies are available for comparison. Dr Mike Crawford MD [facility] (Electronically Signed) Final Date: 26 December 2020 13:34 S
[2020-12-26] MEDS: acetaminophen 325 mg Tablet 650 MG PO (18:50)
--- NOTE | 2020-12-26 19:24 | PM.PN ---
Subjective Subjective: Interval history: Patient was seen and examined this morning,still complaining of spinning of head with minimal exertion. Vitals/I&O/Wt Last Vital Signs Temp 98.3 F 12/26/20 15:55 Pulse 64 12/26/20 15:55 Resp 16 12/26/20 15:55 BP 142/84 12/26/20 15:55 Pulse Ox 96 12/26/20 15:55 12/26/20 12/26/20 12/26/20 06:59 14:59 22:59 Intake Total 480 / 480 240 / 720 Balance 480 / 480 240 / 720 Physical Exam Const: COMMON NORMALS: patient oriented x3 HENMT: COMMON NORMALS: normocephalic and atraumatic HEAD & SCALP: normocephalic and atraumatic Resp: COMMON NORMALS: normal respiratory effort, No retractions, No use of accessory muscles and clear to auscultation bilaterally AUSCULTATION: clear to auscultation bilaterally Cardio: COMMON NORMALS: regular rate, regular rhythm, S1 normal heart sound present, S2 normal heart sound present, No gallops present (Cardio), No murmurs present (Cardio), No rub (Cardio) and Peripheral pulses 2+ throughout RATE: regular rate RHYTHM: regular rhythm HEART SOUNDS: S1 normal heart sound present and S2 normal heart sound present PERIPHERAL PULSES: Peripheral pulses 2+ throughout GI: COMMON NORMALS: Normal to inspection, nondistended, normoactive bowel sounds present, Soft to palpation, non-tender, No hepatosplenomegaly present and no masses AUSCULTATION: Yes normoactive bowel sounds PALPATION: Yes Soft to palpation and Yes No hepatosplenomegaly present RECTAL EXAM: deferred Extremity: COMMON NORMALS: no clubbing, cyanosis or edema and no pedal edema Neuro: COMMON NORMALS: patient oriented x3 Data : 12/24/20 05:20 12/24/20 05:20 A&P Assessment and plan (1) Vertigo: Likely BPPV: r/o other causes Positive Jennifer hallpike test: 2D Echo : Normal LV size and systolic function EF :70%, Mild LVH , no RWMA , Type I diastolic dysfunction. Bilateral carotid Doppler neck : Mild to moderate heterogeneous plaques of the bifurcations bilaterally, suggesting less than 50% stenosis. Given the fact that she has persistent Vertigo will obtain MRI and MRA without contrast, to r/o any other intracranial pathology.PRESS can be a consideration as the patient B/P was extremely high on the day of presentation. PT on board s/p Edward maneuver meclizine 50 mg PO BID S/P Steroid dose for possible vestibular neuritis. Aspirin 81 mg p.o. daily Lipitor 40 mg p.o. daily Eliquis 5 mg p.o. twice daily Status: Acute (2) Hypertension: Amlodipine 10 mg po daily Lisinopril 10 mg po daily Status: Acute Qualifiers: Hypertension type: unspecified Qualified Code(s): I10 - Essential (primary) hypertension (3) Sinus bradycardia: She was on metoprolol 50 mg po q12 h daily at home. Given the fact she is having H/R in 50s. M/T has been held. Telemetry monitoring shows sinus bradycardia. Will Likely need close monitoring Status: Acute (4) SVT (supraventricular tachycardia): H/O SVT for which she is on metoprolol.T 50 mg po q12. Currently on Hold. Status: Acute (5) Pulmonary embolism: Currently on eliquis Status: Acute Additional A&P Information Daughter is endorsing that her mother was struggling with appropriate word finding which resolved aspirin as blood pressure improved, concerning TIA symptoms she is already on aspirin, atorvastatin along Eliquis I would be reluctant to add Plavix at this point, CT head unremarkable, systolic blood pressure 160s mmhg, I do not think MRI brain will have any merit at this point in time Her last Eliquis dose was yesterday morning CT head unremarkable, showing vascular lacunar infarct She has grade 1 diastolic dysfunction but seems compensated Repeat ECHO Carotid Doppler Patient complained about chest pain however she described chest pain as pain in her breast she does have history of breast mass which was biopsied, 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 fib Attestations Medical Necessity Statement*: Patient needs to be in hospital for the management of persistent Symptomatic vertigo. Coding Level of Care Code Acute Interventional Radiologist for [facility] Fwd Diagnoses Vertigo R42 Hypertension I10 Hypertension type: unspecified Sinus bradycardia R00.1 SVT (supraventricular tachycardia) I47.1 Pulmonary embolism I26.99
[2020-12-26] MEDS: lisinopril 10 mg Tablet PO (21:17)
[2020-12-26] MEDS: atorvastatin 40 mg Tablet PO (21:17)
[2020-12-27] VITALS (10 sets, daily range): BP systolic 110–153; BP diastolic 73–92; PULSE 58–99; RESP 16–20; TEMP 36.4–37.2; O2SAT 93–98
[2020-12-27] MEDS: meclizine 25 mg tablet 50 MG PO (08:47)
[2020-12-27] MEDS: pantoprazole DR 40 mg Tablet PO (08:47)
[2020-12-27] MEDS: amlodipine 10 mg Tablet PO (08:48)
[2020-12-27] MEDS: lisinopril 10 mg Tablet PO (08:48)
[2020-12-27] MEDS: apixaban 5 mg Tablet PO ×2 (08:48→20:49)
[2020-12-27] MEDS: aspirin 81 mg EC Tablet PO (08:48)
[2020-12-27] MEDS: levothyroxine 75 mcg Tablet PO (08:48)
--- NOTE | 2020-12-27 12:27 | MR_ITS ---
WS: [id number] MRI HEAD WITHOUT CONTRAST TECHNIQUE: Sagittal T1, T2 axial, T2 axial FLAIR, axial and coronal T1 images, axial susceptibility w eighted imaging, axial diffusion weighted images, and coronal T2 images were obtained. CLINICAL INFORMATION: Persistent Vertigo COMPARISON: CT December 24, 2020 FINDINGS: Tiny punctate focus of restricted diffusion right frontal subcortical white matter measuring 2.3 mm c onsistent with a tiny focus of acute ischemia. No other foci of restricted diffusion. Moderate small vessel changes. Mild parenchymal volume loss. Normal posterior fossa. Normal vascular flow voids at t he skull base. No extra-axial fluid collections. No evidence of mass or mass effect. Paranasal sinuses and mastoid a ir cells are well aerated. Mild symmetric atrophy temporal lobes and hippocampal formations. Normal o ptic chiasm and pituitary infundibulum. Normal cavernous sinus and Meckel's cave. MR/MR head wo con* [id number] IMPRESSION: 1. Tiny punctate focus of restricted diffusion within the right frontal lobe c onsistent with a small focus of acute ischemia. 2. Moderate small vessel changes. Mild parenchymal volume loss. 3. No hemosiderin on susceptibly weighted images. 4. No other significant findings. Notified Dr. Jessica at 12/27/2020 11:10 AM.
--- NOTE | 2020-12-27 12:29 | MR_ITS ---
WS: [id number] MRA HEAD TECHNIQUE: Axial 3-D TOF images obtained with axial images and axial, sagittal, and coronal 2-D refor matted images. CLINICAL INFORMATION: Persistent vertigo COMPARISON: None. FINDINGS: Distal vertebral arteries are patent. Basilar artery is patent. Normal vascularity to the [employer] territo ry bilaterally. Both ICAs are patent at the skull base. Normal vascularity to the SRIDHAR and MCA territories bilaterally . No evidence of high-grade proximal stenosis or aneurysm. No evidence of flow-limiting stenosis or aneurysm. MR/MR angio head wo con [id number] IMPRESSION: Unremarkable intracranial MRA.
--- NOTE | 2020-12-27 12:33 | PM.PN ---
Subjective Subjective: Interval history: Patient was seen this morning, after her MRI, she sitting up in bed, she tells me that she does not have any word finding difficulties, no headache, no blurry vision, no nausea, no vomiting, no paresthesias, she does tell me that she does get dizziness when rolling in bed, she gets dizziness when changing head position, it comes and goes, Vitals/I&O/Wt Last Vital Signs Temp 97.8 F 12/27/20 08:00 Pulse 99 12/27/20 08:00 Resp 16 12/27/20 08:00 BP 136/80 12/27/20 08:00 Pulse Ox 98 12/27/20 08:00 12/26/20 12/27/20 12/27/20 22:59 06:59 14:59 Intake Total 240 / 720 350 / 350 Balance 240 / 720 350 / 350 Physical Exam Const: COMMON NORMALS: no acute distress and patient oriented x3 HENMT: COMMON NORMALS: normocephalic HEAD & SCALP: normocephalic Resp: COMMON NORMALS: normal respiratory effort, No retractions, No use of accessory muscles and clear to auscultation bilaterally AUSCULTATION: clear to auscultation bilaterally Cardio: COMMON NORMALS: regular rate, regular rhythm, S1 normal heart sound present and S2 normal heart sound present RATE: regular rate RHYTHM: regular rhythm HEART SOUNDS: S1 normal heart sound present and S2 normal heart sound present GI: COMMON NORMALS: Normal to inspection, nondistended, normoactive bowel sounds present, Soft to palpation and non-tender PALPATION: Yes Soft to palpation Extremity: COMMON NORMALS: no pedal edema Neuro: COMMON NORMALS: patient oriented x3, CN's II-XII intact bilaterally, moves all extremities, no focal motor deficits and no sensory deficits noted Psych: COMMON NORMALS: mental status grossly normal Data : 12/24/20 05:20 12/24/20 05:20 A&P Assessment and plan (1) Vertigo: Likely BPPV: Likely benign positional vertigo, dizziness vertigo associate with head position, continue physical therapy, Edward maneuver Positive [place] hallpike test 2D Echo : Normal LV size and systolic function EF :70%, Mild LVH , no RWMA , Type I diastolic dysfunction. Bilateral carotid Doppler neck : Mild to moderate heterogeneous plaques of the bifurcations bilaterally, suggesting less than 50% stenosis. PT on board s/p Edward maneuver meclizine 50 mg PO BID S/P Steroid dose for possible vestibular neuritis. Aspirin 81 mg p.o. daily Lipitor 40 mg p.o. daily Eliquis 5 mg p.o. twice daily Full code Protonix for GI prophylaxis Status: Acute (2) Hypertension: Amlodipine 10 mg po daily Lisinopril 10 mg po daily Status: Acute Qualifiers: Hypertension type: unspecified Qualified Code(s): I10 - Essential (primary) hypertension (3) Sinus bradycardia: She was on metoprolol 50 mg po q12 h daily at home. Given the fact she is having H/R in 50s. M/T has been held Heart rates now in the 80s to 90s Start low-dose metoprolol 12.5 twice daily monitor for 24 hours Status: Acute (4) SVT (supraventricular tachycardia): H/O SVT for which she is on metoprolol.T 50 mg po q12. Currently on Hold. Status: Acute (5) Pulmonary embolism: Currently on eliquis Status: Acute (6) Acute CVA (cerebrovascular accident): -Last known normal was , daughter reported word finding difficulty -Currently alert oriented x3, no focal neurologic deficits, no word finding difficulty -NIH stroke scale 0 -MRI shows Tiny punctate focus of restricted diffusion within the right frontal lobe consistent with a small focus of acute ischemia -MRA of the head and neck no acute findings plan -Patient's is already on Eliquis 5 mg twice daily, aspirin 81 mg, statin -Adding Plavix to above regimen given her age, carries significant risk of adverse events including bleeding, advised of the risks and benefits, she voiced understanding, all questions answered, agreed with plan to not add Plavix -Continue blood pressure monitoring, better blood pressure control -Add back metoprolol at a reduced dose of 12.5 mg twice daily -Monitor for the next 24 hours -Likely will require event monitor on discharge Status: Acute Additional A&P Information Daughter is endorsing that her mother was struggling with appropriate word finding which resolved aspirin as blood pressure improved, concerning TIA symptoms she is already on aspirin, atorvastatin along Eliquis I would be reluctant to add Plavix at this point, CT head unremarkable, systolic blood pressure 160s mmhg, I do not think MRI brain will have any merit at this point in time Her last Eliquis dose was yesterday morning CT head unremarkable, showing vascular lacunar infarct She has grade 1 diastolic dysfunction but seems compensated Repeat ECHO Carotid Doppler Patient complained about chest pain however she described chest pain as pain in her breast she does have history of breast mass which was biopsied, 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 fib Attestations Medical Necessity Statement*: Patient requires hospitalization for acute CVA, hypertension, dizziness, benign positional vertigo Coding Level of Care Code Acute Respiratory Services Manager for [facility] Fwd Diagnoses Vertigo R42 Hypertension I10 Hypertension type: unspecified Sinus bradycardia R00.1 SVT (supraventricular tachycardia) I47.1 Pulmonary embolism I26.99 Acute CVA (cerebrovascular accident) I63.9
[2020-12-27] MEDS: metoprolol tartrate 25 mg Tablet 12.5 MG PO (13:29)
[2020-12-27 13:31] LABS: Erythrocyte Sedimentation Rate 11 mm/hr (0-15)
--- NOTE | 2020-12-27 15:02 | PC.RESP ---
PULMONARY REHAB INFORMATION SENT TO PATIENT.
[2020-12-27] MEDS: atorvastatin 40 mg Tablet PO (20:49)
[2020-12-28] MEDS: metoprolol tartrate 25 mg Tablet 12.5 MG PO ×2 (00:23→11:52)
[2020-12-28 03:09] VITALS: BP 126/84; PULSE 60; RESP 18; TEMP 36.6; O2SAT 94
[2020-12-28 05:21] VITALS: PULSE 56
[2020-12-28 05:37] LABS: Basophils # 0.1 10^3/uL (0.0-0.1); Eosinophils # 0.2 10^3/uL (0.0-0.8); Eosinophils % 2.4 %; Hematocrit 49.1 % (37.0-47.0); Hemoglobin 15.5 g/dL (11.5-15.3); Lymphocytes # 2.6 10^3/uL (0.8-4.8); Lymphocytes % 28.4 %; Mean Corpuscular HGB Conc 31.6 g/dL (30.0-36.0); Mean Corpuscular Hemoglobin 30.7 pg (28.0-34.0); Mean Corpuscular Volume 97.2 fL (81-99); Mean Platelet Volume 10.7 fL (7.4-10.4); Monocytes # 0.9 10^3/uL (0.2-0.9); Monocytes % 10.2 %; Neutrophils # 5.15 10^3/uL (1.8-7.7); Neutrophils % 57.3 %; Nucleated Red Blood Cells % 0 %; Platelet Count 245 10^3/cmm (130-400); Red Blood Count 5.05 10^6/uL (4.1-5.3); Red Cell Distribution Width 13.1 % (12.1-15.1)
[2020-12-28 05:58] LABS: Alanine Aminotransferase 13 U/L (0-33); Albumin Level 3.6 g/dL (3.5-5.2); Alkaline Phosphatase 89 IU/L (35-105); Anion Gap 15.1 (5-19); Aspartate Amino Transferase 14 U/L (0-32); Blood Urea Nitrogen 14 mg/dL (8-23); Calcium 8.7 mg/dL (8.5-10.5); Carbon Dioxide 25 mmol/L (22-29); Chloride 102 mmol/L (98-107); Globulin 2.7 g/dL (1.3-4.6); Glucose 101 mg/dL (65-115); Magnesium 1.9 mg/dL (1.7-2.3); Osmolality Calculated 287 mOsm/kg (285-295); Phosphorus 3.5 mg/dL (2.5-4.5); Potassium 4.1 mmol/L (3.5-5.1); Sodium 138 mmol/L (136-145); Total Bilirubin 0.6 mg/dL (0.15-1.2); Total Protein 6.3 g/dL (6.6-8.7)
[2020-12-28 07:16] VITALS: BP 126/75; BP 134/84; BP 138/89; PULSE 71; PULSE 76; PULSE 77; RESP 17; TEMP 36.3; O2SAT 94
[2020-12-28] MEDS: levothyroxine 75 mcg Tablet PO (08:47)
[2020-12-28] MEDS: aspirin 81 mg EC Tablet PO (08:47)
[2020-12-28] MEDS: lisinopril 10 mg Tablet PO (08:47)
[2020-12-28] MEDS: apixaban 5 mg Tablet PO (08:47)
[2020-12-28] MEDS: pantoprazole DR 40 mg Tablet PO (08:47)
[2020-12-28] MEDS: amlodipine 10 mg Tablet PO (08:47)
--- NOTE | 2020-12-28 10:21 | PC.SOCIAL ---
Pg 2 IMM Explained to pt Pg 2 IMM. No questions voiced. Provided pt a copy. Initialed, dated, & timed, a copy & placed in chart.
[2020-12-28 11:27] VITALS: BP 133/79; PULSE 76; RESP 18; TEMP 36.5; O2SAT 92
--- NOTE | 2020-12-28 14:01 | P.DS_ITS ---
Discharge Providers Date of Admission: 12/25/20 18:28 Date of Discharge: December 28, 2020 Attending Provider at Admission: Nguyen Souza MD Attending Provider at Discharge: Aris Jessica MD Primary Care Provider: Marcus Rodriguez Diagnoses at Discharge Discharge Diagnosis (1) Vertigo: Status: Acute (2) Hypertension: Status: Acute Qualifiers: Hypertension type: unspecified Qualified Code(s): I10 - Essential (primary) hypertension (3) Sinus bradycardia: Status: Acute (4) SVT (supraventricular tachycardia): Status: Acute (5) Pulmonary embolism: Status: Acute Permanent problem details: in 2005; provoked following R knee surgery Treated with Coumadin x 3 months (6) Acute CVA (cerebrovascular accident): Status: Acute Reason for Visit Reason for Visit: VERTIGO Hospital Course Hospital Course This is a 70-year-old female with a past medical history of COPD, GERD, hypertension, pulmonary embolism, CAD, atrial flutter who presents to [facility] due to complaints of vertigo and word finding difficulty Patient was admitted [facility] for vertigo, likely benign positional vertigo, as her symptoms were related to head position, cardiac echocardiogram showed an EF of 70%, type I diastolic dysfunction, no regional wall motion abnormalities, bilateral carotid artery ultrasound showed a mild to moderate heterogeneous plaques of the bifurcations bilaterally suggesting less than 50% stenosis, received inpatient physical therapy and meclizine. Patient continues to have intermittent episodes of vertigo, discharged with instructions for Edward maneuver, meclizine as needed, follow-up with primary care provider as outpatient, follow-up with neurology as outpatient. For patient's word finding difficulty, NIH stroke scale is 0, last known well normal was , was alert oriented x3 during hospitalization, no focal neurologic deficits, MRI of the brain showed tiny punctate focus of restricted diffusion within the right frontal lobe consistent with small focus of acute ischemia, patient was already on Eliquis 5 mg twice daily, aspirin 81 mg, atorva statin 40 mg daily. Patient was clinically monitored as inpatient, received blood pressure monitoring, required better blood pressure control. Discharged on her home Eliquis 5 mg twice daily, aspirin 81 mg daily, high-dose statin 80 mg daily follow-up with primary care provider for recheck CPK and LFTs in 1 week, monitor for muscle pains, if so stop atorvastatin. I had discussion with patient about adding Plavix therapy to her regimen, given her age, and her risk factors risks and benefits of adding Plavix were discussed, risks including significant bleeding and GI bleed. After discussion of the risks and benefits, she voiced understanding, all questions answered, declined adding Plavix therapy, which is reasonable. Follow-up with neurology in 1 month, if recurrent strokelike symptoms go to emergency room. Discharged on metoprolol 12.5 mg twice daily, lisinopril 10 mg daily, Norvasc 5 mg daily. Discharged with an event monitor on discharge. Patient also had episodes of sinus bradycardia during her hospitalization, ambulating without significant symptomatology, given her history of atrial flutter and SVT, her dose of metoprolol was decreased to 12.5 mg twice daily. Physical Exam Const: COMMON NORMALS: no acute distress and patient oriented x3 Resp: COMMON NORMALS: normal respiratory effort, No retractions, No use of accessory muscles and clear to auscultation bilaterally AUSCULTATION: clear to auscultation bilaterally Cardio: COMMON NORMALS: regular rate, regular rhythm, S1 normal heart sound present and S2 normal heart sound present RATE: regular rate RHYTHM: regular rhythm HEART SOUNDS: S1 normal heart sound present and S2 normal heart sound present GI: COMMON NORMALS: Normal to inspection, nondistended, normoactive bowel sounds present, Soft to palpation and non-tender PALPATION: Yes Soft to palpation Extremity: COMMON NORMALS: no pedal edema Neuro: COMMON NORMALS: patient oriented x3 Psych: COMMON NORMALS: mental status grossly normal Discharge Data Data Completed and Pending: Completed Studies During Hospitalization Category Date Time Status CT head wo con* 7 0450 Urgent Cat Scan 12/24/20 04:25 Completed XR chest 1V david ble [id number] Urgent Exams 12/24/20 04:25 Completed MR angio head wo con [id number] Routine MRI 12/27/20 12:29 Completed MR head wo con* 7 0551 Routine MRI 12/27/20 12:27 Completed CV carotid duplex BI* [id number] Routine Ultrasound 12/26/20 18:35 Completed CV echo complete* [id number] Routine Ultrasound 12/26/20 18:27 Completed Pending at discharge Category Date Time Status Complete Blood Co unt w/Auto AM LABS Lab 12/29/20 04:00 Ordered Complete Blood Co unt w/Auto AM LABS Lab 12/30/20 04:00 Ordered Comprehensive Met abolic Panel AM LA BS Lab 12/29/20 04:00 Ordered Comprehensive Met abolic Panel AM LA BS Lab 12/30/20 04:00 Ordered Magnesium AM LABS Lab 12/29/20 04:00 Ordered Magnesium AM LABS Lab 12/30/20 04:00 Ordered Phosphorus AM LAB S Lab 12/29/20 04:00 Ordered Phosphorus AM LAB S Lab 12/30/20 04:00 Ordered MR head wo con* 7 0551 Routine MRI 12/27/20 10:15 Unverified Labs from last 24 hours 12/28/20 12/28/20 05:23 05:23 WBC 9.0 RBC 5.05 Hgb 15.5 H Hct 49.1 H MCV 97.2 MCH 30.7 MCHC 31.6 RDW 13.1 Plt Count 245 MPV 10.7 H Neut % (Auto) 57.3 Lymph % (Auto) 28.4 [place] % (Auto) 10.2 Eos % (Auto) 2.4 Baso % (Auto) 1.0 Neut # (Auto) 5.15 Lymph # (Auto) 2.6 [place] # (Auto) 0.9 Eos # (Auto) 0.2 Baso # (Auto) 0.1 Nucleated RBC % (a uto) 0 Nucleated RBCs # 0.0 Sodium 138 Potassium 4.1 Chloride 102 Carbon Dioxide 25 Anion Gap 15.1 BUN 14 Creatinine 0.7 GFR Calculation Not Reportable Glucose 101 Calculated Osmolal ity 287 Calcium 8.7 Phosphorus 3.5 Magnesium 1.9 Total Bilirubin 0.6 AST 14 ALT 13 Alkaline Phosphata se 89 Total Protein 6.3 L Albumin 3.6 Globulin 2.7 Vitals: Last Vital Signs Temp 97.7 F 12/28/20 11:27 Pulse 76 12/28/20 11:27 Resp 18 12/28/20 11:27 BP 133/79 12/28/20 11:27 Pulse Ox 92 12/28/20 11:27 Discharge Plan Discharge Patient Disposition: Home Condition: Stable Prescriptions: New meclizine 25 mg Tablet 50 mg PO BID PRN (Reason: dizziness) 30 Days Qty: 60 RF: 0 amlodipine 10 mg Tablet 10 mg PO DAILY 30 Days Qty: 30 RF: 0 lisinopril 10 mg Tablet 10 mg PO DAILY 30 Days Qty: 30 RF: 0 metoprolol tartrate 25 mg Tablet 12.5 mg PO Q12H 30 Days Qty: 30 RF: 0 Continued citalopram [Celexa] 20 mg tablet 20 mg PO DAILY RF: 0 pantoprazole [Protonix] 40 mg tablet,delayed release (DR/EC) 40 mg PO DAILY RF: 0 tizanidine 2 mg capsule 2 mg PO BID PRN (Reason: muscle relaxer) RF: 0 levothyroxine 50 mcg capsule 75 mcg PO DAILY RF: 0 famotidine [Pepcid] 20 mg Tablet 20 mg PO DAILY PRN (Reason: Heartburn) RF: 0 aspirin 81 mg Tablet,Delayed Release (Dr/Ec) 81 mg PO DAILY Qty: 30 RF: 0 Hold Instructions: Resume on 11/06/20. Eliquis 5 mg tablet 5 mg PO BID RF: 0 Changed atorvastatin 40 mg Tablet 80 mg PO BEDTIME 30 Days Qty: 60 RF: 0 Discontinued metoprolol tartrate 37.5 mg tablet 37.5 mg PO BID Qty: 60 RF: 0 Discharge Orders: Discharge Order (Routine); Ordered 12/28/20 Ordered By: Aris Jessica Other Ambulatory Orders: CA cardiac event monitor (Routine) Timeframe: 1 Day Facility: [facility] - Location: Cardiac Diagnostic Laboratory Ordered By: Aris Jessica Referrals: Melab Lu MD [Physician] - 1 month (acute cva ) Marcus Rodriguez [Primary Care Provider] - Discharge Diet: Cardiac Discharge Activity: Resume usual activity Patient Instructions: Benign Positional Vertigo, Metoprolol (By mouth), Lisinopril (By mouth), Meclizine (By mouth), Amlodipine (By mouth), Vertigo (DC), Opioid Safety Activity Restrictions/Additional Instructions: -Please take Eliquis and aspirin and statin as prescribed -Follow-up with neurology -Advance monitor as prescribed -I have decreased your dose of metoprolol to 12.5 mg twice daily -If you have recurrent dizziness, vertigo use meclizine, use maneuvers that have been shown to you -If you have any strokelike symptoms go to the emergency room or call 911 Discharge Attestations Time Spent in Discharge Care*: less than 30 min Status at Discharge: Cognitive status at discharge: cognitively intact , Behavioral status at discharge: cooperative , Quality Metrics Clinical Quality Measures During this hospital stay, did patient experience: Stroke Contraindication to Antithrombotic: Antithrombotic prescribed Contraindication to Anticoagulation: Anticoagulation prescribed Contraindication to Statin: Statin prescribed Coding Level of Care Code Acute [facility] FW OR note Diagnoses Vertigo R42 Hypertension I10 Hypertension type: unspecified Sinus bradycardia R00.1 SVT (supraventricular tachycardia) I47.1 Pulmonary embolism I26.99 Acute CVA (cerebrovascular accident) I63.9
--- NOTE | 2020-12-28 15:40 | PC.NURSE ---
Patient educated on discharge instructions, medications, and upcoming appointments. Patient verbalized understanding. IV removed and patient waiting for her ride.
[2020-12-28 15:41] VITALS: BP 133/79; PULSE 76; RESP 18; TEMP 36.5; O2SAT 92
== END 2020-12-28 16:00 | disposition home health service (06) | DRG 65 ==
LOC: ER 05:47 → MEDSURG 06:00
PROVIDERS: Admitting Provider Internal Medicine; Emergency Provider Emergency Medicine; PCP Physician Assistant Medical; Visit Provider Family Medicine
DX: I63.9 Cerebral infarction, unspecified (principal); I47.1 Supraventricular tachycardia; R29.700 NIHSS score 0; R42 Dizziness and giddiness; Z86.711 Personal history of pulmonary embolism; M17.12 Unilateral primary osteoarthritis, left knee; Z96.651 Presence of right artificial knee joint; I25.10 Atherosclerotic heart disease of native coronary artery without angina pectoris; I10 Essential (primary) hypertension; J44.9 Chronic obstructive pulmonary disease, unspecified; K21.9 Gastro-esophageal reflux disease without esophagitis; Z85.828 Personal history of other malignant neoplasm of skin; Z77.22 Contact with and (suspected) exposure to environmental tobacco smoke (acute) (chronic); Z85.3 Personal history of malignant neoplasm of breast; R00.1 Bradycardia, unspecified; Z79.82 Long term (current) use of aspirin; Z79.01 Long term (current) use of anticoagulants
CPT/HCPCS: 36415; 70450; 70544; 70551; 71045; 80053; 83735; 84100; 85025; 85651; 93306; 93880; 96360; 97110; 97116; 97162; 99285; G0378; J2920; J8597

== ENCOUNTER → 2021-02-14 12:53 | Outpatient (BNVA) | payer MEDICARE, SELFPAY | PROVIDERS: PCP Physician Assistant Medical; Referring Provider Family Medicine; Visit Provider Specialist | DX: H81.10 Benign paroxysmal vertigo, unspecified ear (principal); I69.398 Other sequelae of cerebral infarction; I10 Essential (primary) hypertension; Z79.01 Long term (current) use of anticoagulants | CPT/HCPCS: 99205 ==

== ENCOUNTER → 2021-02-21 15:47 | Outpatient (BNVA) | payer MEDICARE, SELFPAY | PROVIDERS: PCP Physician Assistant Medical; Visit Provider Nurse Practitioner Family | DX: S99.921A Unspecified injury of right foot, initial encounter (principal); L08.9 Local infection of the skin and subcutaneous tissue, unspecified; X58.XXXA Exposure to other specified factors, initial encounter | CPT/HCPCS: 73630 ==

== ENCOUNTER 2021-03-29 15:10 | Outpatient (CLI) | payer MEDICARE, SELFPAY ==
--- NOTE | 2021-03-29 15:17 | XR_ITS ---
WS: [id number] SCREENING DEXA SCAN [employer] CLINICAL INFORMATION: POSTMENOPAUSAL COMPARISON: None. FINDINGS: The L1-L4 bone mineral density measures 0.980 g/cm2. This corresponds to a T score score of -1.7 and Z score of -1.0. Left femoral neck bone mineral density measures 0.876 g/cm2. This corresponds to a T score of -1.0 an d Z score of -0.2. Right femoral neck bone mineral density measures 0.811 g/cm2. This corresponds to a T score -1.6of an d Z score of -0.7. Mean femoral neck bone mineral density measures 0.844 g/cm2. This corresponds to a T score of -1.3 an d Z score of -0.5. XR/XR DEXA axial skeleton* [id number] IMPRESSION: Osteopenia Patient's FRAX calculated 10 year probability for major osteoporotic fracture i s 21.9 % and osteoporotic hip fracture is 9.8%.
== END 2021-03-29 15:11 | disposition home or self-care (01) ==
PROVIDERS: PCP Physician Assistant Medical; Visit Provider Physician Assistant Medical
DX: Z78.0 Asymptomatic menopausal state (principal); M85.80 Other specified disorders of bone density and structure, unspecified site
CPT/HCPCS: 77080

== ENCOUNTER 2021-04-18 14:27 | Outpatient (CLI) | payer MEDICARE, SELFPAY ==
--- NOTE | 2021-04-18 14:33 | MM_ITS ---
WS: [id number] BILATERAL DIGITAL SCREENING MAMMOGRAPHY WITH CAD CLINICAL INFORMATION: SCREENING HISTORY: Screening mammogram. No current complaints. COMPARISON: February 18, 2020 TECHNIQUE: Bilateral CC and MLO views. FINDINGS: Scattered fibroglandular densities bilaterally. Postoperative changes upper outer left breast with abbie mpectomy changes. Associated surgical clips and parenchymal fibrosis. Lucent centered calcifications right breast. No suspicious focal mass, asymmetry, calcifications, or architectural distortion. No ev idence of malignancy. MM/[place] [id number] IMPRESSION: BI-RADS: 2-Benign FOLLOW UP: 1 Year Follow-up Recommend return to annual screening mammography.
== END 2021-04-18 14:28 | disposition home or self-care (01) ==
PROVIDERS: PCP Physician Assistant Medical; Visit Provider Physician Assistant Medical
DX: Z12.31 Encounter for screening mammogram for malignant neoplasm of breast (principal)
CPT/HCPCS: 77067

== ENCOUNTER → 2021-05-16 11:43 | Outpatient (BNVA) | payer MEDICARE, SELFPAY | PROVIDERS: PCP Physician Assistant Medical; Visit Provider Nurse Practitioner Family | DX: Z20.822 Contact with and (suspected) exposure to COVID-19 (principal); R68.89 Other general symptoms and signs; R05.9 Cough, unspecified | CPT/HCPCS: 87400; 87635 ==

== ENCOUNTER → 2021-07-27 08:11 | Outpatient (BNVA) | payer MEDICARE, SELFPAY | PROVIDERS: PCP Physician Assistant Medical; Visit Provider Specialist | DX: M25.511 Pain in right shoulder (principal); M25.531 Pain in right wrist | CPT/HCPCS: 73030; 73110 ==

== ENCOUNTER 2021-07-27 10:44 | Outpatient (CLI) | payer MEDICARE, SELFPAY | END 2021-07-27 10:45 | disposition home or self-care (01) | LOC: SPT 10:45 | PROVIDERS: PCP Physician Assistant Medical; Visit Provider Specialist | DX: Z46.89 Encounter for fitting and adjustment of other specified devices (principal); M25.531 Pain in right wrist | CPT/HCPCS: 97760; L3908 ==

== ENCOUNTER → 2021-08-17 13:57 | Outpatient (BNVA) | payer MEDICARE, SELFPAY | PROVIDERS: PCP Physician Assistant Medical; Visit Provider Specialist | DX: S42.141A Displaced fracture of glenoid cavity of scapula, right shoulder, initial encounter for closed fracture (principal); S42.291A Other displaced fracture of upper end of right humerus, initial encounter for closed fracture; X58.XXXA Exposure to other specified factors, initial encounter | CPT/HCPCS: 73030; 73090 ==

== ENCOUNTER 2021-10-25 06:00 | Outpatient (RCR) | payer MEDICARE, SELFPAY | END 2021-10-29 23:59 | disposition home or self-care (01) | LOC: WPT 06:00 | PROVIDERS: PCP Nurse Practitioner Family; Referring Provider Physician Assistant Surgical; Visit Provider Physician Assistant Surgical | DX: Z47.1 Aftercare following joint replacement surgery (principal); Z96.611 Presence of right artificial shoulder joint | CPT/HCPCS: 97110; 97140; 97161 ==

== ENCOUNTER 2021-10-30 06:00 | Outpatient (RCR) | payer MEDICARE, SELFPAY | END 2021-11-29 23:59 | disposition home or self-care (01) | LOC: WPT 06:00 | PROVIDERS: PCP Nurse Practitioner Family; Referring Provider Physician Assistant Surgical; Visit Provider Physician Assistant Surgical | DX: Z47.1 Aftercare following joint replacement surgery (principal); Z96.611 Presence of right artificial shoulder joint | CPT/HCPCS: 97110; 97140 ==

== ENCOUNTER → 2021-11-23 11:20 | Outpatient (BNVA) | payer MEDICARE, SELFPAY | PROVIDERS: PCP Nurse Practitioner Family; Visit Provider Nurse Practitioner Family | DX: R32 Unspecified urinary incontinence (principal); Z76.89 Persons encountering health services in other specified circumstances; G47.00 Insomnia, unspecified; E03.9 Hypothyroidism, unspecified | CPT/HCPCS: 80053; 84443; 85025 ==

== ENCOUNTER 2021-11-30 06:00 | Outpatient (RCR) | payer MEDICARE, SELFPAY | END 2021-12-29 23:59 | disposition home or self-care (01) | LOC: WPT 06:00 | PROVIDERS: PCP Nurse Practitioner Family; Referring Provider Physician Assistant Surgical; Visit Provider Physician Assistant Surgical | DX: Z47.1 Aftercare following joint replacement surgery (principal); Z96.611 Presence of right artificial shoulder joint | CPT/HCPCS: 97110; 97140; 97164 ==

== ENCOUNTER 2021-12-30 06:00 | Outpatient (RCR) | payer MEDICARE, SELFPAY | END 2022-01-29 23:59 | disposition home or self-care (01) | LOC: WPT 06:00 | PROVIDERS: PCP Nurse Practitioner Family; Referring Provider Physician Assistant Surgical; Visit Provider Physician Assistant Surgical | DX: G47.31 Primary central sleep apnea (principal) | CPT/HCPCS: 97110; 97140 ==

== ENCOUNTER → 2022-03-17 11:36 | Outpatient (BNVA) | payer MEDICARE, SELFPAY | PROVIDERS: PCP Nurse Practitioner Family; Visit Provider Nurse Practitioner Family | DX: Z20.822 Contact with and (suspected) exposure to COVID-19 (principal) | CPT/HCPCS: 87426 ==

== ENCOUNTER 2022-05-04 11:00 | Outpatient (CLI) | payer MEDICARE, SELFPAY ==
--- NOTE | 2022-05-04 11:12 | MM_ITS ---
WS: [id number] Bilateral screening 3D tomosynthesis digital mammogram, 05/04/2022 Clinical Data: SCREENING Comparison: 04/18/2021, 02/18/2020, 01/29/2020, 12/05/2018, 09/19/2017, 08/24/2016, 08/18/2015, 06/29/2015, 11/09/2011, 11/12/2010, 11/05/2008. Findings: The breast parenchymal pattern shows fat replacement. No spiculated masses or clustered calcification s are seen. There are surgical clips in the upper outer quadrant of the left breast. There are benign calcifications in the right breast. MM/[place] [id number] Impression: 1. Negative bilateral mammogram unchanged. 2. Recommend annual screening mammograms. BIRADS: 2-Benign FOLLOW UP: 1 Year Follow-up The CAD billing checker was used.
== END 2022-05-04 11:01 | disposition home or self-care (01) ==
LOC: RAD 11:01
PROVIDERS: PCP Nurse Practitioner Family; Visit Provider Family Medicine
DX: Z12.31 Encounter for screening mammogram for malignant neoplasm of breast (principal)
CPT/HCPCS: 77063; 77067

== ENCOUNTER 2023-05-09 11:22 | Outpatient (CLI) | payer MEDICARE, SELFPAY ==
--- NOTE | 2023-05-09 11:27 | MM_ITS ---
WS: [id number] BILATERAL 3D TOMOSYNTHESIS DIGITAL SCREENING MAMMOGRAPHY WITH CAD CLINICAL INFORMATION: SCREENING HISTORY: Screening mammogram. No current complaints. COMPARISON: 2021 TECHNIQUE: Bilateral CC and MLO views. FINDINGS: Scattered fibroglandular densities bilaterally. No suspicious focal mass, asymmetry, calcifications, or architectural distortion. No evidence of malignancy. Surgical clips upper outer LEFT breast. Incid ental punctate and lucent centered calcifications. IMPRESSION: MM/[place] [id number] BI-RADS: 2-Benign FOLLOW UP: 1 Year Follow-up Recommend return to annual screening mammography.
== END 2023-05-09 11:23 | disposition home or self-care (01) ==
LOC: RAD 11:22
PROVIDERS: PCP Nurse Practitioner Family; Visit Provider Nurse Practitioner Family
DX: Z12.31 Encounter for screening mammogram for malignant neoplasm of breast (principal)
CPT/HCPCS: 77063; 77067

== ENCOUNTER → 2023-06-01 10:28 | Outpatient (BNVA) | payer MEDICARE, SELFPAY | PROVIDERS: PCP Nurse Practitioner Family; Visit Provider Nurse Practitioner Family | DX: E03.9 Hypothyroidism, unspecified (principal); I10 Essential (primary) hypertension; I25.118 Atherosclerotic heart disease of native coronary artery with other forms of angina pectoris | CPT/HCPCS: 80053; 80061; 81003; 84443; 85025 ==

== ENCOUNTER → 2023-06-15 14:35 | Outpatient (BNVA) | payer MEDICARE, SELFPAY | PROVIDERS: PCP Nurse Practitioner Family; Visit Provider Nurse Practitioner Family | DX: N39.0 Urinary tract infection, site not specified (principal) | CPT/HCPCS: 81000 ==

== ENCOUNTER → 2023-06-20 11:19 | Outpatient (BNVA) | payer MEDICARE, SELFPAY | PROVIDERS: PCP Nurse Practitioner Family; Visit Provider Nurse Practitioner Family | DX: N39.0 Urinary tract infection, site not specified (principal) | CPT/HCPCS: 81003 ==

== ENCOUNTER → 2023-09-18 10:56 | Outpatient (BNVA) | payer MEDICARE, SELFPAY | PROVIDERS: PCP Nurse Practitioner Family; Visit Provider Nurse Practitioner Family | DX: I10 Essential (primary) hypertension (principal); R63.4 Abnormal weight loss | CPT/HCPCS: 80053; 84443; 85025 ==

== ENCOUNTER → 2024-01-23 10:22 | Outpatient (BNVA) | payer MEDICARE, SELFPAY | PROVIDERS: PCP Nurse Practitioner Family; Visit Provider Nurse Practitioner Family | DX: M16.0 Bilateral primary osteoarthritis of hip (principal) | CPT/HCPCS: 73502 ==

== ENCOUNTER → 2024-04-08 10:36 | Outpatient (BNVA) | payer MEDICARE, SELFPAY | PROVIDERS: PCP Nurse Practitioner Family; Visit Provider Nurse Practitioner Family | DX: N39.0 Urinary tract infection, site not specified (principal) | CPT/HCPCS: 81000; 81003; 87086 ==

== ENCOUNTER → 2024-09-23 08:45 | Outpatient (BNVA) | payer MEDICARE, SELFPAY | PROVIDERS: PCP Nurse Practitioner Family; Visit Provider Nurse Practitioner Family | DX: I10 Essential (primary) hypertension (principal); E03.9 Hypothyroidism, unspecified; E55.9 Vitamin D deficiency, unspecified; Z79.899 Other long term (current) drug therapy | CPT/HCPCS: 80053; 80061; 81003; 82306; 83036; 84443; 84550; 85025 ==

== ENCOUNTER 2024-10-21 11:48 | Outpatient (CLI) | payer MEDICARE, SELFPAY ==
--- NOTE | 2024-10-21 | ECG_ITS ---
[facility] Test Date: 2024-10-21 Pat Name: Ernestina Davidson Department: Room: Gender: Female Clinical Data Assistant: : 1950 Requested By: Marcus Tello Order Number: [id number] Mary MD: Mike Crawford M.D. Interpretive Statements Lung unchanged pre/post procedure; Intraprocedure shortess of breath; Symptoms resoled by discharge PROCEDURE: At the baseline, the patient's blood pressure was 119/77 with a heart rate of 82/min. The baseline electrocardiogram showed normal sinus rhythm with poor R wave progression. Low voltage complexes in the precordial leads. Features of possible old inferior wall MS The patient exercised for 1 minute and 59 seconds on a standard Derrell protocol. Patient attained a maximum heart rate of 134 beats per minute(93% of the maximum predicted heart rate) with a blood pressure at the peak exercise of 146/82 mm Hg. The EKG at the peak exercise revealed no significant changes. Patient did not have any chest pain or any significant cardiac arrhythmias with the exercise During the recovery phase, there were no new changes. Blood pressure at the end of the recovery phase was 146/82 mm Hg with a heart rate of 112 per minute. CONCLUSION: 1. No significant EKG changes with the treadmill exercise 2. No exercise-induced chest pain or cardiac arrhythmia 3. Impaired exercise tolerance, attained a maximum of 4.6 METs 4. Aquino treadmill score was -4(moderate risk). Electronically Signed On 10-26-2024 13:10:33 CDT by Mike Crawford M.D. [email or web address]
[2024-10-21 11:57] VITALS: BMI 31.6
[2024-10-21 12:23] VITALS: BP 146/82; PULSE 76
== END 2024-10-21 11:49 | disposition home or self-care (01) ==
LOC: CDL 11:50
PROVIDERS: PCP Nurse Practitioner Family; Visit Provider Nurse Practitioner Family
DX: R07.89 Other chest pain (principal); R94.31 Abnormal electrocardiogram [ECG] [EKG]
CPT/HCPCS: 93017

== ENCOUNTER → 2024-12-25 11:35 | Outpatient (BNVA) | payer MEDICARE, SELFPAY | PROVIDERS: PCP Nurse Practitioner Family; Visit Provider Nurse Practitioner Family | DX: R30.0 Dysuria (principal) | CPT/HCPCS: 81000 ==

== ENCOUNTER → 2025-01-06 10:26 | Outpatient (BNVA) | payer MEDICARE, SELFPAY | PROVIDERS: PCP Nurse Practitioner Family; Visit Provider Nurse Practitioner Family | DX: N39.0 Urinary tract infection, site not specified (principal); R32 Unspecified urinary incontinence | CPT/HCPCS: 81003; 87086 ==

== ENCOUNTER → 2025-01-14 11:17 | Outpatient (BNVA) | payer MEDICARE, SELFPAY | PROVIDERS: PCP Nurse Practitioner Family; Visit Provider Nurse Practitioner Family | DX: N30.00 Acute cystitis without hematuria (principal); M19.072 Primary osteoarthritis, left ankle and foot; M23.52 Chronic instability of knee, left knee; M25.375 Other instability, left foot | CPT/HCPCS: 73562; 73630; 81003 ==

== ENCOUNTER → 2025-01-27 11:16 | Outpatient (BNVA) | payer MEDICARE, SELFPAY | PROVIDERS: PCP Nurse Practitioner Family; Visit Provider Nurse Practitioner Family | DX: N39.0 Urinary tract infection, site not specified (principal); R32 Unspecified urinary incontinence | CPT/HCPCS: 81003; 87086 ==